=== PATIENT | female | born 1945 | race Caucasian/White ===

== ENCOUNTER 2016-11-10 10:10 | Emergency (ER) | payer MEDICARE ==
[2016-11-10 10:29] VITALS: BP 149/86
--- NOTE | 2016-11-28 14:53 | UC ---
Alfonso Singh SooYoung, scribed for FavioDaiana ToddDO on 11/10/16 at 1017 . Eye Complaint HPI - HPI Summary HPI Summary: A 71 y/o F [place] [facility]/o L-sided eye pain onset last night. Pain rated as 4 out of 10, described as feeling like she was stung. She got a bug bite to the lateral aspect of her L upper eyelid four days ago. Associated sx: L eye discharge since resolved, MCKEON since resolved, new facial numbness around L eye onset last night, mild photosensitivity. Denies visual changes, SOB, CP, dizziness, n/v, abd pain. She alternated heat and ice over the night to mild relief. She notes intermittent facial numbness for past year as baseline, but today's sx is different than baseline. Pert PMHx: RA, cataracts with implants. Goes to Dr. Peres's office. - History of Current Complaint Stated Complaint: EYE COMPLAINT WITH FACIAL NUMBNESS Hx Obtained From: Patient ?: No Onset/Duration: Gradual Onset, Lasting Hours - last night, Still Present Timing: Constant Severity Initially: Moderate Severity Currently: Moderate Pain Intensity: 4 Pain Scale Used: 0-10 Numeric Location of Injury: Eye Lid (upper) Character: Dull Aggravating Factor(s): Light Alleviating Factor(s): Nothing Associated Signs And Symptoms: Positive: Photophobia - mildly, Drainage ( Purulent). Negative: Vision Impairment Bilateral, Fever, Swelling - Risk Factors Penetrating Injury Risk Factor: Negative - Allergies/Home Medications Allergies/Adverse Reactions: Allergies Allergy/AdvReac Type Severity Reaction Status Date / Time Penicillins [PCN] Allergy Intermediate Rash Verified 11/13/16 08:50 Sulfa Antibiotics Allergy Intermediate Rash Verified 11/13/16 08:50 Hydroxychloroquine Allergy Difficulty Verified 11/13/16 08:50 [From Plaquenil] Breathing Propoxyphene [From Darvon] Allergy Difficulty Verified 11/13/16 08:50 Breathing Aspirin [ASA] AdvReac Mild Tinnitus Verified 11/13/16 08:50 Levofloxacin AdvReac Dizziness Verified 11/13/16 08:50 PMH/Surg Hx/FS Hx/Imm Hx Previously Healthy: No Endocrine History: Thyroid Disease Cardiovascular History: Hypertension Other History Of: Negative For: Anticoagulant Therapy - Surgical History Surgical History: Yes Surgery Procedure, Year, and Place: LEFT HIP REPLACEMENT, RT UPPER ARM SEROMA, HYSTERECTOMY, HEMORRHOIDECTOMY, RT TSA, LT SHOULDER SURGERY, LT WRIST REPAIR, MULTIPLE I & Ds OF RIGHT UPPER ARM, BILAT KNEES, POWER PORT, BILAT CATARACTS, ULNAR NERVE REPAIR, CERVICAL DECOMPRESSION - Family History Known Family History: Positive: Other - negative anaesthesia reaction Negative: Cardiac Disease, Hypertension, Diabetes - Social History Occupation: Disabled Lives: With Family - son Alcohol Use: Rare Alcohol Amount: about 1 glass of wine/week Substance Use Type: None Smoking Status (MU): Never Smoked Tobacco Have You Smoked in the Last Year: No - Immunization History Most Recent Influenza Vaccination: no vaccine available Most Recent Tetanus Shot: none Most Recent Pneumonia Vaccination: 2012 Review of Systems Constitutional: Negative Skin: Negative Eyes: Photophobia - mild, Other - pos: eye pain, discharge since resolved; neg: visual changes ENT: Negative Respiratory: Negative Cardiovascular: Negative Gastrointestinal: Negative Genitourinary: Negative Motor: Negative Neurovascular: Negative Musculoskeletal: Negative Neurological: Headache - resolved, Numbness - L-sided facial numbness Psychological: Negative All Other Systems Reviewed And Are Negative: Yes Physical Exam Triage Information Reviewed: Yes Appearance: Well-Appearing, No Pain Distress, Well-Nourished Vital Signs: Initial Vital Signs Temp 98.4 F 11/10/16 10:14 Pulse 67 11/10/16 10:14 Resp 18 11/10/16 10:14 BP 149/86 11/10/16 10:14 Pulse Ox 100 11/10/16 10:14 Vital Signs Reviewed: Yes Eyes: Positive: Conjunctiva Clear, Other: - Funduscopic exam was inadequate.. Negative: Discharge ENT: Positive: Hearing grossly normal, Pharynx normal, TMs normal, Muffled/ hoarse voice. Negative: Nasal congestion, Nasal drainage, Tonsillar swelling Neck exam: Normal Neck: Positive: Supple Respiratory: Positive: Lungs clear, Normal breath sounds, No respiratory distress, No accessory muscle use Cardiovascular: Positive: RRR, No Murmur Musculoskeletal Exam: Normal Neurological: Positive: Alert, Muscle Tone Normal, Other: - Baseline loss of strength in LUE due to not having a bone there. No reflexes. Loss of sensation around distribution of maxillary division of the trigeminal nerve. A&Ox3, CN II- XII INTACT, SENSORY MOTOR INTACT, NO CEREBELLAR SIGNS, FACIAL SYMMETRY, NEGATIVE RHOMBERG, NEGATIVE GAIT Psychological Exam: Normal Psychological: Positive: Age Appropriate Behavior Skin Exam: Normal, Other - warm, dry, nml color Eye Complaint Course/Dx - Course Course Of Treatment: Medications reviewed this visit. High blood pressure noted. - Differential Dx/Diagnosis Provider Diagnoses: facial numbness, eye pain. Blood pressure in poor control. Discharge - Discharge Plan Condition: Stable Disposition: AGAINST MEDICAL ADVICE Referrals: Jo Kerns MD [Primary Care Provider] - Additional Instructions: Your blood pressure was elevated at this visit. Please follow up with your primary care provider in 1 day to 4 weeks for further evaluation. Return to Urgent Care if you have any new or worsening symptoms. The documentation as recorded by the Alfonso pichardo SooYoung accurately reflects the service I personally performed and the decisions made by , Daiana Stahl DO.
== END 2016-11-10 10:55 | disposition left against medical advice (07) ==
LOC: UCEAST 10:10
DX: H57.12 Ocular pain, left eye (principal); R20.0 Anesthesia of skin; I10 Essential (primary) hypertension; E07.9 Disorder of thyroid, unspecified; Z96.642 Presence of left artificial hip joint; Z98.42 Cataract extraction status, left eye; Z98.41 Cataract extraction status, right eye; Z88.6 Allergy status to analgesic agent; Z88.0 Allergy status to penicillin; Z88.2 Allergy status to sulfonamides
CPT/HCPCS: 99213; G0463

== ENCOUNTER 2016-11-10 11:19 | Emergency (ER) | payer MEDICARE ==
[2016-11-10 12:40] VITALS: BP 143/77
--- NOTE | 2016-11-10 13:30 | ED ---
Throat Pain/Nasal Congestion - HPI Summary HPI Summary: 71 female presents to ED with complaints of left eye redness, swelling and tenderness that began a 2 days ago and has seemed to worsen. Woke up this morning with increased redness, swelling and discharge. Had a bug bite a week or two prior to lateral left eye however has healed. Patient has chronic listing of neck and MSK disorders. Denies headache, weakness, photophobia, vision changes and vision loss. Admits to some discharge and crusting of the eye , lower lid. Has been using warm compresses with little relief. Denies any other complaints at this time. No FB sensation, trauma, injury or pain on sclera. Denies excessive tearing in eyes/nose. Patient states she had cataract surgery years ago and told to be seen for any infection so it does not effect the cataract surgery, otherwise she probably would not have come in. - History of Current Complaint Chief Complaint: EDEyeProblem Time Seen by Provider: 11/10/16 11:37 Hx Obtained From: Patient Onset/Duration: Sudden Onset, Lasting Days - 2, Still Present, Worse Since Severity: Moderate Cough: None - Allergies/Home Medications Allergies/Adverse Reactions: Allergies Allergy/AdvReac Type Severity Reaction Status Date / Time Penicillins [PCN] Allergy Intermediate Rash Verified 10/09/16 16:57 Sulfa Antibiotics Allergy Intermediate Rash Verified 10/09/16 16:57 Hydroxychloroquine Allergy Difficulty Verified 10/09/16 16:57 [From Plaquenil] Breathing Propoxyphene [From Darvon] Allergy Difficulty Verified 10/09/16 16:57 Breathing Aspirin [ASA] AdvReac Mild Tinnitus Verified 10/09/16 16:57 Levofloxacin AdvReac Dizziness Verified 10/09/16 16:57 PMH/Surg Hx/FS Hx/Imm Hx Endocrine/Hematology History: Reports: Hx Thyroid Disease Denies: Hx Anticoagulant Therapy, Hx Blood Disorders, Hx Blood Transfusions, Hx Bone Marrow Disease, Hx Diabetes, Hx Systemic Lupus Erythematosus, Hx Sickle Cell Disease, Hx Anemia, Hx Unexplained Bleeding, Other Endocrine/Hematological Disorders Cardiovascular History: Reports: Hx Hypertension - ON MEDS, Hx Valvular Heart Disease - MITRAL VALVE STENOSIS Denies: Hx Aneurysm, Hx Angina, Hx Angioplasty, Hx Auto Implanted Cardiovert Defib, Hx Cardiac Arrest, Hx Cardiomegaly, Hx Congenital Heart Disease, Hx Congestive Heart Failure, Hx Coronary Artery Disease, Hx Deep Vein Thrombosis, Hx Hypercholesterolemia, Hx Hypotension, Hx Pacemaker/ICD, Hx Peripheral Vascular Disease, Hx Rheumatic Fever, Hx Syncope, Other Cardiovascular Problems/ Disorders Respiratory History: Reports: Other Respiratory Problems/Disorders - BILAT LOWER LOBE LUNG NODULES Denies: Hx Asthma, Hx Bronchopulmonary Dysplasia, Hx Chronic Bronchitis, Hx Chronic Obstructive Pulmonary Disease (COPD), Hx Cystic Fibrosis, Hx Lung Cancer , Hx Pleural Effusion, Hx Pneumonia, Hx Pulmonary Edema, Hx Pulmonary Embolism, Hx Seasonal Allergies, Hx Sleep Apnea GI History: Denies: Hx Cirrhosis, Hx Crohn's Disease, Hx Diverticulosis, Hx Gall Bladder Disease, Hx Gastroesophageal Reflux Disease, Hx Gastrointestinal Bleed, Hx Hiatal Hernia, Hx Irritable Bowel, Hx Jaundice, Hx Obstructive Bowel, Hx Ileostomy, Hx Pyloric Stenosis, Hx Ulcer, Other GI Disorders History: Denies: Hx Acute Renal Failure, Hx Benign Prostatic Hyperplasia, Hx Chronic Renal Failure, Hx Dialysis, Hx Kidney Infection, Hx Kidney Stones, Hx Renal Disease, Other Problems/Disorders Musculoskeletal History: Reports: Hx Arthritis, Hx Back Problems, Hx Osteoporosis, Hx Scoliosis - C1-C2 DISPLACEMENT Denies: Hx Bursitis, Hx Congenital Bone Abnormalities, Hx Fibromyalgia, Hx Gout, Hx Orthopedic Injury, Hx Tendonitis, Other Musculoskeletal History Sensory History: Reports: Hx Cataracts - PT HAS IMPLANTS, Hx Contacts or Glasses - READING Denies: Hx Eye Injury, Hx Eye Prosthesis, Hx Glaucoma, Hx Macular Degeneration, Hx Vision Problem, Hx Deafness, Hx Hearing Aid, Hx Hearing Problem , Other Sensory Impairments Opthamlomology History: Reports: Hx Cataracts - PT HAS IMPLANTS, Hx Contacts or Glasses - READING Denies: Hx Eye Injury, Hx Eye Prosthesis, Hx Glaucoma, Hx Macular Degeneration, Hx Vision Problem, Other Sensory Impairments EENT History: Reports: Other - cataracts Neurological History: Reports: Other Neuro Impairments/Disorders - BELLS PALSY Denies: Hx Dementia, Hx Developmental Delay, Hx Headaches, Hx Migraine, Hx Seizures, Hx Spinal Cord Injury, Hx Transient Ischemic Attacks (TIA) Psychiatric History: Denies: Hx Anxiety, Hx Attention Deficit Hyperactivity Disorder, Hx Autism, Hx Eating Disorder, Hx Oppositional Sebastian Disorder, Hx Depression, Hx Panic Disorder, Hx Post Traumatic Stress Disorder, Hx Inpatient Treatment, Hx Community Mental Health Tx, Hx Schizophrenia, Hx Bipolar Disorder, Hx Suicide Attempt, Other Psychiatric Issues/Disorders - Cancer History Hx Hematologic Symptoms: No Hx Chemotherapy: No Hx Radiation Therapy: No - Surgical History Surgery Procedure, Year, and Place: LEFT HIP REPLACEMENT, RT UPPER ARM SEROMA, HYSTERECTOMY, HEMORRHOIDECTOMY, RT TSA, LT SHOULDER SURGERY, LT WRIST REPAIR, MULTIPLE I & Ds OF RIGHT UPPER ARM, BILAT KNEES, POWER PORT, BILAT CATARACTS, ULNAR NERVE REPAIR, CERVICAL DECOMPRESSION Hx Anesthesia Reactions: No - Immunization History Immunizations Up to Date: Yes Infectious Disease History: No Infectious Disease History: Denies: Hx Clostridium Difficile, Hx Hepatitis, Hx Human Immunodeficiency Virus (HIV), Hx of Known/Suspected MRSA, Hx Shingles, Hx Tuberculosis, Traveled Outside the [place] in Last 30 Days - Family History Known Family History: Positive: None - Social History Alcohol Use: Weekly Alcohol Amount: 1 glass wine weekly Substance Use Type: Reports: None Smoking Status (MU): Never Smoked Tobacco Have You Smoked in the Last Year: No Review of Systems Constitutional: Negative Positive: Drainage, Erythema, Other - swelling ENT: Negative Cardiovascular: Negative Respiratory: Negative Gastrointestinal: Negative Musculoskeletal: Negative Neurological: Negative All Other Systems Reviewed And Are Negative: Yes Physical Exam Triage Information Reviewed: Yes Vital Signs On Initial Exam: Initial Vitals Temp Pulse Resp BP Pulse Ox 98.5 F 66 18 155/87 100 11/10/16 11:24 11/10/16 11:24 11/10/16 11:24 11/10/16 11:24 11/10/16 11:24 Vital Signs Reviewed: Yes Appearance: Positive: Well-Appearing, No Pain Distress, Well-Nourished Skin: Positive: Warm, Skin Color Reflects Adequate Perfusion, Dry, Erythema @ - of left eye. Negative: Cold, Cyanosis @, Pale Head/Face: Positive: Normal Head/Face Inspection - left eye redness, swelling of lower lid Eyes: Positive: Normal, EOMI, CRESENCIO, Conjunctiva Clear, Discharge - clear colored , with crusting and yellow tint, erythema and edema of lower left lid, appears to be hordeolum, Other: - fundoscopic exam: unable due to pupil size. no FB noted. scabbed over non infected bug bite noted on lateral left periorbital eye space ENT: Positive: Normal ENT inspection, Hearing grossly normal, Pharynx normal, TMs normal Dental: Negative: Cervical Lymphadenopathy Neck: Positive: Supple, Nontender, No Lymphadenopathy Respiratory/Lung Sounds: Positive: Clear to Auscultation, Breath Sounds Present. Negative: Rales, Rhonchi, Wheezes Cardiovascular: Positive: Normal, RRR, Pulses are Symmetrical in both Upper and Lower Extremities. Negative: Murmur, Rub Abdomen Description: Positive: Nontender, Soft Bowel Sounds: Positive: Present Musculoskeletal: Positive: Normal, Strength/ROM Intact - her normal, no signifcant new/acute weakness noted. Negative: Pain @ Neurological: Positive: Normal, Sensory/Motor Intact, Alert, Oriented to Person Place, Time, CN Intact II-III, Reflexes Intact, NV Bundle Intact Distally, Normal Gait, Finger to Nose - normal, Facial Symmetry - patient has chronic listing of neck, states no new drooping or weakness, Speech Normal. Negative: Receptive Aphasia, Expressive Aphasia, Cerebellar Dysfunction, Disoriented, Facial Droop, Slurred Speech Psychiatric: Positive: Normal, Affect/Mood Appropriate - [place] Coma Scale Best Eye Response: 4 - Spontaneous Best Motor Response: 6 - Obeys Commands Best Verbal Response: 5 - Oriented Diagnostics - Vital Signs Vital Signs Temp Pulse Resp BP Pulse Ox 11/10/16 12:38 99.3 F 72 16 143/77 100 11/10/16 11:24 98.5 F 66 18 155/87 100 - Laboratory Lab Statement: Any lab studies that have been ordered have been reviewed, and results considered in the medical decision making process. EENT Course/Dx - Course Course Of Treatment: due to PE findings will treat patient for hordeolum with topical antibiotic ointment. no concern for TIA or any other emergent etiology at this time. no concern for bells palsy. obvious sign of hordeolum of left eye with drainage. given script for eryhtromycin ointment. aware of worsening signs and symptoms. continue frequent warm compresses and ibuprofen for pain/ inflammation. follow up pcp and optho. - Differential Diagnoses Differential Diagnoses: Cellulitis, Conjunctivitis, Foreign Body, Other - hordeolum, chalazion, iritis - Diagnoses Provider Diagnoses: Hordeolum externum left lower eyelid Discharge - Discharge Plan Condition: Stable Disposition: HOME Patient Education Materials: Stye (ED), Warm Compress or Soak (GEN) Referrals: Jo Kerns MD [Primary Care Provider] - Jeremias Peres MD [Medical Doctor] - Additional Instructions: Continue applying warm compresses. Do not put fingers into eye. Use antibiotic ointment 3 times daily. Apply to lower eye lid, thin layer. Follow up with eye doctor to ensure improvement, sooner if symptoms worsen or new symptoms develop as discussed.
[2016-11-10] MEDS ORDERED: Erythromycin OPTH OINT* APPLIC OINT LEFT EYE SCH (14:00)
== END 2016-11-10 13:50 | disposition home or self-care (01) ==
LOC: ED 11:19
DX: H00.015 Hordeolum externum left lower eyelid (principal)
CPT/HCPCS: 99282; A9270-GY

== ENCOUNTER 2017-01-22 10:54 | Observation (INO) | payer MEDICARE ==
[2017-01-22] MEDS ORDERED: NS 0.9% 1000 ML* 1,000 ML IV ONE (11:21)
[2017-01-22 12:12] LABS: Hematocrit 42 % (35-47); Hemoglobin 13.8 g/dl (12.0-16.0); Mean Corpuscular HGB Conc 33 g/dl (31-36); Mean Corpuscular Hemoglobin 29 pg (27-31); Mean Corpuscular Volume 88 fL (80-97); Mean Platelet Volume 8 um3 (7.4-10.4); Red Blood Count 4.74 10^6/ul (4.0-5.4); Red Cell Distribution Width 15 % (10.5-15); White Blood Count 8.7 10^3/ul (3.5-10.8)
[2017-01-22 12:24] LABS: ALT 6 U/L (7-52); AST 16 U/L (13-39); Albumin 3.9 g/dL (3.2-5.2); Alkaline Phosphatase 63 U/L (34-104); Anion Gap 10 mmol/L (2-11); BUN/Creatinine Ratio 15.9 (8-20); Blood Urea Nitrogen 11 mg/dL (6-24); CO2 Carbon Dioxide 23 mmol/L (22-32); Calcium 8.7 mg/dL (8.6-10.3); Chloride 103 mmol/L (101-111); Creatine Kinase 56 U/L (10-223); EGFR African American 107.9 (>60); EGFR Non-African American 83.9 (>60); Globulin 3.5 g/dL (2-4); Glucose 97 mg/dL (70-100); Magnesium 2.1 mg/dL (1.9-2.7); Potassium 3.9 mmol/L (3.5-5.0); Sodium 136 mmol/L (133-145); Total Protein 7.4 g/dL (6.4-8.9)
[2017-01-22 12:27] LABS: Troponin I 0.02 ng/mL (<0.04)
--- NOTE | 2017-01-22 12:28 | RAD ---
HISTORY: Altered mental status COMPARISONS: August 21, 2014 TECHNIQUE: Multiple contiguous axial CT scans were obtained of the head without intravenous contrast. FINDINGS: HEMORRHAGE/INFARCT: There is no hemorrhage or acute infarct. MASSES/SHIFT: There is no mass or shift. EXTRA-AXIAL SPACES: There are no extra-axial fluid collections. SULCI AND VENTRICLES: The sulci and ventricles are normal in size and position for the patient's stated age. Incidentally noted is a cavum septum pellucidum et vergae. CEREBRUM: There are no focal parenchymal abnormalities. BRAINSTEM: There are no focal parenchymal abnormalities. CEREBELLUM: There are no focal parenchymal abnormalities. VESSELS: The vessels are grossly normal. PARANASAL SINUSES: The paranasal sinuses are clear. ORBITS: The orbits are unremarkable. BONES AND SOFT TISSUE: No bone or soft tissue abnormalities are noted. OTHER: None IMPRESSION: NO ACUTE INTRACRANIAL PATHOLOGY.
[2017-01-22 12:32] LABS: Alcohol < 10 mg/dL (<10)
--- NOTE | 2017-01-22 12:33 | RAD ---
HISTORY: Neck pain status post fall COMPARISONS: February 07, 2011 TECHNIQUE: Multiple contiguous axial CT scans were obtained of the cervical spine without intravenous contrast, with coronal and sagittal multiplanar reformations. FINDINGS: BRAIN: The visualized brain is unremarkable CENTRAL CANAL: Evaluation of the central canal is limited on CT technique; however, there is no obvious canalicular mass or epidural hemorrhage. ALIGNMENT: There is straightening of the cervical lordosis. VERTEBRAL BODIES: There is diffuse osteopenia. There is chronic appearing post right deformity to the odontoid process with fusion across the lateral axillary fixation. The patient is status post laminectomy at C5-C6. There is no acute displaced fracture. There is multilevel anterolateral marginal to 5 formation. JOINTS: There is osteoarthritis of the uncovertebral and facet joints. MUSCULATURE: Unremarkable INTERVERTEBRAL DISCS: There is diffuse loss of intervertebral disc height. AXIAL IMAGES: There is diffuse moderate neural foraminal narrowing. There is no significant osseous central canal stenosis. SOFT TISSUES: The visualized soft tissues of the neck are unremarkable. The prevertebral fat stripe is preserved. OTHER: None. IMPRESSION: 1. OSTEOPENIA. 2. REMOTE POST TRAUMATIC CHANGE TO THE CERVICAL SPINE. 3. POST SURGICAL CHANGE. 4. DEGENERATIVE DISC DISEASE AND OSTEOARTHRITIS. 5. NO ACUTE OSSEOUS INJURY TO THE CERVICAL SPINE
[2017-01-22 12:47] LABS: TSH (Thyroid Stimulating Horm) 0.69 mcIU/mL (0.34-5.60)
--- NOTE | 2017-01-22 12:56 | RAD ---
HISTORY: Altered mental status COMPARISONS: CT dated August 13, 2016 VIEWS: 1: frontal portable view of the chest at 12:42 PM FINDINGS: LINES AND TUBES: A right-sided chest port is noted with the tip overlying the superior vena cava CARDIOMEDIASTINAL SILHOUETTE: The cardiomediastinal silhouette is normal for portable technique. PLEURA: The costophrenic angles are sharp. No pleural abnormalities are noted. LUNG PARENCHYMA: The lungs are clear. ABDOMEN: The upper abdomen is clear. There is no subphrenic gas. BONES AND SOFT TISSUES: There is diffuse osteopenia. The patient is status post right shoulder no right elbow arthroplasty. There are advanced chronic posttraumatic changes to the proximal left humerus. IMPRESSION: NO ACTIVE CARDIOPULMONARY DISEASE.
[2017-01-22 12:57] LABS: Urine Bacteria Absent (Absent); Urine Bilirubin Negative (Negative); Urine Glucose Negative (Negative); Urine Nitrite Negative (Negative)
[2017-01-22 13:10] LABS: Benzodiazepine Urine Screen None Detected (None Detect)
[2017-01-22] MEDS ORDERED: traMADol TAB* 50 MG PO PRN (13:58)
--- NOTE | 2017-01-22 18:59 | ED ---
Douglas Singh Angela, scribed for Vern Valle MD on 01/22/17 at 1139 . Syncope/Near Syncope - HPI Summary HPI Summary: This pt is a 71 y/o female presenting to [facility] c/o headache s/p fall and possible syncope today. Per nurse, pt reported she was walking to the chip washer when she fell and woke up on the floor. She does not remember passing out. Pt currently c/o headache and neck pain. She rates her headache 10/10 in severity. She additionally states an episode of urinary incontinence. Pt is not oriented. Per nurse, pt lives by herself. PMHx includes rheumatoid arthritis. HPI is limited due to level 5 caveat - confusion - History Of Current Complaint Hx Obtained From: Patient, Other: - Nurse Hx From Patient Unobtainable Due To: Altered Mental Status Onset/Duration: Sudden Onset, Still Present Timing: Hours Context: Unwitnessed Activity At Onset: Other - walking Aggravating Factor(s): Nothing Alleviating Factor(s): Nothing Associated Signs And Symptoms: AMS, Head Trauma (Recent), Headache - rated 10/ 10 in severity, Other - neck pain, an episode of urinary incontinence. - Allergies/Home Medications Allergies/Adverse Reactions: Allergies Allergy/AdvReac Type Severity Reaction Status Date / Time Penicillins [PCN] Allergy Intermediate Rash Verified 01/08/17 10:41 Sulfa Antibiotics Allergy Intermediate Rash Verified 01/08/17 10:41 Hydroxychloroquine Allergy Difficulty Verified 01/08/17 10:41 [From Plaquenil] Breathing Propoxyphene [From Darvon] Allergy Difficulty Verified 01/08/17 10:41 Breathing Aspirin [ASA] AdvReac Mild Tinnitus Verified 01/08/17 10:41 Levofloxacin AdvReac Dizziness Verified 01/08/17 10:41 Home Medications: Home Medications Aspirin EC Low Dose* [Ecotrin EC Low Dose 81 MG*] 81 mg PO DAILY 01/22/17 [ History Confirmed 01/22/17] azaTHIOprine TAB(*) [Imuran TAB(*)] 50 mg PO MOWEFR 01/22/17 [History Confirmed 01/22/17] PMH/Surg Hx/FS Hx/Imm Hx Endocrine/Hematology History: Reports: Hx Thyroid Disease Denies: Hx Anticoagulant Therapy, Hx Blood Disorders, Hx Blood Transfusions, Hx Bone Marrow Disease, Hx Diabetes, Hx Systemic Lupus Erythematosus, Hx Sickle Cell Disease, Hx Anemia, Hx Unexplained Bleeding, Other Endocrine/Hematological Disorders Cardiovascular History: Reports: Hx Hypertension - ON MEDS, Hx Valvular Heart Disease - MITRAL VALVE STENOSIS Denies: Hx Aneurysm, Hx Angina, Hx Angioplasty, Hx Auto Implanted Cardiovert Defib, Hx Cardiac Arrest, Hx Cardiomegaly, Hx Congenital Heart Disease, Hx Congestive Heart Failure, Hx Coronary Artery Disease, Hx Deep Vein Thrombosis, Hx Hypercholesterolemia, Hx Hypotension, Hx Pacemaker/ICD, Hx Peripheral Vascular Disease, Hx Rheumatic Fever, Hx Syncope, Other Cardiovascular Problems/ Disorders Respiratory History: Reports: Other Respiratory Problems/Disorders - BILAT LOWER LOBE LUNG NODULES Denies: Hx Asthma, Hx Bronchopulmonary Dysplasia, Hx Chronic Bronchitis, Hx Chronic Obstructive Pulmonary Disease (COPD), Hx Cystic Fibrosis, Hx Lung Cancer , Hx Pleural Effusion, Hx Pneumonia, Hx Pulmonary Edema, Hx Pulmonary Embolism, Hx Seasonal Allergies, Hx Sleep Apnea GI History: Denies: Hx Cirrhosis, Hx Crohn's Disease, Hx Diverticulosis, Hx Gall Bladder Disease, Hx Gastroesophageal Reflux Disease, Hx Gastrointestinal Bleed, Hx Hiatal Hernia, Hx Irritable Bowel, Hx Jaundice, Hx Obstructive Bowel, Hx Ileostomy, Hx Pyloric Stenosis, Hx Ulcer, Other GI Disorders History: Denies: Hx Acute Renal Failure, Hx Benign Prostatic Hyperplasia, Hx Chronic Renal Failure, Hx Dialysis, Hx Kidney Infection, Hx Kidney Stones, Hx Renal Disease, Other Problems/Disorders Musculoskeletal History: Reports: Hx Arthritis, Hx Back Problems, Hx Osteoporosis, Hx Scoliosis - C1-C2 DISPLACEMENT Denies: Hx Bursitis, Hx Congenital Bone Abnormalities, Hx Fibromyalgia, Hx Gout, Hx Orthopedic Injury, Hx Tendonitis, Other Musculoskeletal History Sensory History: Reports: Hx Cataracts - PT HAS IMPLANTS, Hx Contacts or Glasses - READING Denies: Hx Eye Injury, Hx Eye Prosthesis, Hx Glaucoma, Hx Macular Degeneration, Hx Vision Problem, Hx Deafness, Hx Hearing Aid, Hx Hearing Problem , Other Sensory Impairments Opthamlomology History: Reports: Hx Cataracts - PT HAS IMPLANTS, Hx Contacts or Glasses - READING Denies: Hx Eye Injury, Hx Eye Prosthesis, Hx Glaucoma, Hx Macular Degeneration, Hx Vision Problem, Other Sensory Impairments Neurological History: Reports: Other Neuro Impairments/Disorders - BELLS PALSY Denies: Hx Dementia, Hx Developmental Delay, Hx Headaches, Hx Migraine, Hx Seizures, Hx Spinal Cord Injury, Hx Transient Ischemic Attacks (TIA) Psychiatric History: Denies: Hx Anxiety, Hx Attention Deficit Hyperactivity Disorder, Hx Autism, Hx Eating Disorder, Hx Oppositional [place] Disorder, Hx Depression, Hx Panic Disorder, Hx Post Traumatic Stress Disorder, Hx Inpatient Treatment, Hx Community Mental Health Tx, Hx Schizophrenia, Hx Bipolar Disorder, Hx Suicide Attempt, Other Psychiatric Issues/Disorders - Cancer History Hx Hematologic Symptoms: No Hx Chemotherapy: No Hx Radiation Therapy: No - Surgical History Surgery Procedure, Year, and Place: LEFT HIP REPLACEMENT, RT UPPER ARM SEROMA, HYSTERECTOMY, HEMORRHOIDECTOMY, RT TSA, LT SHOULDER SURGERY, LT WRIST REPAIR, MULTIPLE I & Ds OF RIGHT UPPER ARM, BILAT KNEES, POWER PORT, BILAT CATARACTS, ULNAR NERVE REPAIR, CERVICAL DECOMPRESSION Hx Anesthesia Reactions: No Infectious Disease History: Yes Infectious Disease History: Denies: Hx Clostridium Difficile, Hx Hepatitis, Hx Human Immunodeficiency Virus (HIV), Hx of Known/Suspected MRSA, Hx Shingles, Hx Tuberculosis, Traveled Outside the [place] in Last 30 Days - Family History Known Family History: Positive: Cardiac Disease - Father, Hypertension - paternal grandmother, Other - Mother: rheumatoid arthritis, [place] - Social History Alcohol Use: Occasionally Alcohol Amount: 1 glass wine weekly Substance Use Type: Reports: None Smoking Status (MU): Never Smoked Tobacco Have You Smoked in the Last Year: No Review of Systems Negative: Fever, Chills Positive: incontinence - 1 episode of urinary incontinence Musculoskeletal: Other - neck pain Positive: Headache, Syncope All Other Systems Reviewed And Are Negative: No - Comments Additional Review of Systems Comments: ROS is limited due to level 5 caveat - confusion. Physical Exam - Summary Physical Exam Summary: VITAL SIGNS: Reviewed. GENERAL: Patient is a well-developed and nourished female. Patient is not in any acute respiratory distress. HEAD AND FACE: No ecchymosis or skull depressions. No sinus tenderness. Pt has a bump on the right forehead. EYES: PERRLA, EOMI x 2, No injected conjunctiva, no nystagmus. EARS: Hearing grossly intact. Ear canals and tympanic membranes are within normal limits. MOUTH: Oropharynx within normal limits. NECK: Supple, trachea is midline, no adenopathy, no JVD, no carotid bruit. Pt c/ o c-spine tenderness. CHEST: Symmetric, no tenderness at palpation. Pt has a port on the right side of the chest. LUNGS: Clear to auscultation bilaterally. No wheezing or crackles. CVS: Regular rate and rhythm, S1 and S2 present, no murmurs or gallops appreciated. ABDOMEN: Soft, non-tender. No signs of distention. No rebound no guarding, and no masses palpated. Bowel sounds are normal. EXTREMITIES: FROM in all major joints, no edema, no cyanosis or clubbing. NEURO: Alert but not oriented. Pt is confused. No acute neurological deficits. Speech is normal and follows commands. SKIN: Dry and warm Triage Information Reviewed: Yes Vital Signs On Initial Exam: Initial Vitals Temp Pulse Resp BP Pulse Ox 97.8 F 72 18 0/0 100 01/22/17 11:07 01/22/17 11:07 01/22/17 11:07 01/22/17 11:07 01/22/17 11:07 Vital Signs Reviewed: Yes Completion Of Physical Exam Limited Due To: Level 5 - confusion - Cirilo Coma Scale Best Eye Response: 4 - Spontaneous Best Motor Response: 6 - Obeys Commands Best Verbal Response: 4 - Confused Diagnostics - Vital Signs Vital Signs Temp Pulse Resp BP Pulse Ox 01/22/17 11:07 97.8 F 72 18 0/0 100 - Laboratory Lab Results: Lab Results 01/22/17 01/22/17 01/22/17 Range/Units 11:34 11:34 11:34 WBC 8.7 (3.5-10.8) 10^3/ul RBC 4.74 (4.0-5.4) 10^6/ul Hgb 13.8 (12.0-16.0) g/dl Hct 42 (35-47) % MCV 88 (80-97) fL MCH 29 (27-31) pg MCHC 33 (31-36) g/dl RDW 15 (10.5-15) % Plt Count 312 (150-450) 10^3/ul MPV 8 (7.4-10.4) um3 Neut % (Auto) 68.6 (38-83) % Lymph % (Auto) 22.5 L (25-47) % Meade % (Auto) 7.6 (1-9) % Eos % (Auto) 0.8 (0-6) % Baso % (Auto) 0.5 (0-2) % Absolute Neuts (auto) 6.0 (1.5-7.7) 10^3/ul Absolute Lymphs (auto) 2.0 (1.0-4.8) 10^3/ul Absolute Monos (auto) 0.7 (0-0.8) 10^3/ul Absolute Eos (auto) 0.1 (0-0.6) 10^3/ul Absolute Basos (auto) 0 (0-0.2) 10^3/ul Absolute Nucleated RBC 0 10^3/ul Nucleated RBC % 0 Sodium 136 (133-145) mmol/L Potassium 3.9 (3.5-5.0) mmol/L Chloride 103 (101-111) mmol/L Carbon Dioxide 23 (22-32) mmol/L Anion Gap 10 (2-11) mmol/L BUN 11 (6-24) mg/dL Creatinine 0.69 (0.51-0.95) mg/dL Est GFR ( Amer) 107.9 (>60) Est GFR (Non-Af Amer) 83.9 (>60) BUN/Creatinine Ratio 15.9 (8-20) Glucose 97 (70-100) mg/dL Lactic Acid (0.5-2.0) mmol/L Calcium 8.7 (8.6-10.3) mg/dL Magnesium 2.1 (1.9-2.7) mg/dL Total Bilirubin 0.50 (0.2-1.0) mg/dL AST 16 (13-39) U/L ALT 6 L (7-52) U/L Alkaline Phosphatase 63 (34-104) U/L Ammonia 34 (16-53) mol/L Total Creatine Kinase 56 (10-223) U/L Troponin I 0.02 (<0.04) ng/mL Total Protein 7.4 (6.4-8.9) g/dL Albumin 3.9 (3.2-5.2) g/dL Globulin 3.5 (2-4) g/dL Albumin/Globulin Ratio 1.1 (1-3) TSH 0.69 (0.34-5.60) mcIU/mL Urine Color Urine Appearance Urine pH (5-9) Ur Specific [place] (1.010-1.030) Urine Protein (Negative) Urine Ketones (Negative) Urine Blood (Negative) Urine Nitrate (Negative) Urine Bilirubin (Negative) Urine Urobilinogen (Negative) Ur Leukocyte Esterase (Negative) Urine WBC (Auto) (Absent) Urine RBC (Auto) (Absent) Ur Squamous Epith Cells (Absent) Urine Bacteria (Absent) Urine Glucose (Negative) Urine Opiates Screen (None Detect) Ur Barbiturates Screen (None Detect) Ur Phencyclidine Scrn (None Detect) Ur Amphetamines Screen (None Detect) U Benzodiazepines Scrn (None Detect) Urine Cocaine Screen (None Detect) U Cannabinoids Screen (None Detect) Serum Alcohol < 10 (<10) mg/dL 01/22/17 01/22/17 01/22/17 Range/Units 11:34 12:10 12:10 WBC (3.5-10.8) 10^3/ul RBC (4.0-5.4) 10^6/ul Hgb (12.0-16.0) g/dl Hct (35-47) % MCV (80-97) fL MCH (27-31) pg MCHC (31-36) g/dl RDW (10.5-15) % Plt Count (150-450) 10^3/ul MPV (7.4-10.4) um3 Neut % (Auto) (38-83) % Lymph % (Auto) (25-47) % [place] % (Auto) (1-9) % Eos % (Auto) (0-6) % Baso % (Auto) (0-2) % Absolute Neuts (auto) (1.5-7.7) 10^3/ul Absolute Lymphs (auto) (1.0-4.8) 10^3/ul Absolute Monos (auto) (0-0.8) 10^3/ul Absolute Eos (auto) (0-0.6) 10^3/ul Absolute Basos (auto) (0-0.2) 10^3/ul Absolute Nucleated RBC 10^3/ul Nucleated RBC % Sodium (133-145) mmol/L Potassium (3.5-5.0) mmol/L Chloride (101-111) mmol/L Carbon Dioxide (22-32) mmol/L Anion Gap (2-11) mmol/L BUN (6-24) mg/dL Creatinine (0.51-0.95) mg/dL Est GFR ( Amer) (>60) Est GFR (Non-Af Amer) (>60) BUN/Creatinine Ratio (8-20) Glucose (70-100) mg/dL Lactic Acid 2.5 H* (0.5-2.0) mmol/L Calcium (8.6-10.3) mg/dL Magnesium (1.9-2.7) mg/dL Total Bilirubin (0.2-1.0) mg/dL AST (13-39) U/L ALT (7-52) U/L Alkaline Phosphatase (34-104) U/L Ammonia (16-53) mol/L Total Creatine Kinase (10-223) U/L Troponin I (<0.04) ng/mL Total Protein (6.4-8.9) g/dL Albumin (3.2-5.2) g/dL Globulin (2-4) g/dL Albumin/Globulin Ratio (1-3) TSH (0.34-5.60) mcIU/mL Urine Color Colorless Urine Appearance Clear Urine pH 8.0 (5-9) Ur Specific [place] 1.002 L (1.010-1.030) Urine Protein Negative (Negative) Urine Ketones Negative (Negative) Urine Blood 1+ H (Negative) Urine Nitrate Negative (Negative) Urine Bilirubin Negative (Negative) Urine Urobilinogen Negative (Negative) Ur Leukocyte Esterase Negative (Negative) Urine WBC (Auto) Absent (Absent) Urine RBC (Auto) Trace(0-2/hpf) (Absent) Ur Squamous Epith Cells Present H (Absent) Urine Bacteria Absent (Absent) Urine Glucose Negative (Negative) Urine Opiates Screen None detected (None Detect) Ur Barbiturates Screen None detected (None Detect) Ur Phencyclidine Scrn None detected (None Detect) Ur Amphetamines Screen None detected (None Detect) U Benzodiazepines Scrn None detected (None Detect) Urine Cocaine Screen None detected (None Detect) U Cannabinoids Screen None detected (None Detect) Serum Alcohol (<10) mg/dL Result Diagrams: 01/22/17 11:34 01/22/17 11:34 Lab Statement: Any lab studies that have been ordered have been reviewed, and results considered in the medical decision making process. - Radiology Chest XR Xray Interpretation: No Acute Changes - IMPRESSION: No active cardiopulmonary disease. ED physician has reviewed this radiology report and agrees. Radiology Interpretation Completed By: Radiologist - CT Brain CT CT Interpretation: No Acute Changes - IMPRESSION: No acute intracranial pathology. ED physician has reviewed this radiology report and agrees. CT Interpretation Completed By: Radiologist Cervical spine CT CT Interpretation: Positive (See Comments) - IMPRESSION: 1. Osteopenia. 2. Remote post traumatic change to the cervical spine. 3. Post surgical change. 4. Degenerative disc disease and osteoarthritis. 5. No acute osseous injury to the cervical spine. ED physician has reviewed this radiology report and agrees. CT Interpretation Completed By: Radiologist Course/Dx Assessment/Plan: This pt is a 71 y/o female presenting to [facility] c/o headache s/ p fall and possible syncope today. Per nurse, pt reported she was walking to the chip washer when she fell and woke up on the floor. She does not remember passing out. Pt currently c/o headache and neck pain. She rates her headache 10/10 in severity. She additionally states an episode of urinary incontinence. Pt is not oriented. Per nurse, pt lives by herself. PMHx includes rheumatoid arthritis. HPI is limited due to level 5 caveat - confusion. Test results without any significant abnormalities. Head CT shows no acute intracranial pathology. Chest XR shows no active cardiopulmonary disease. CT of cervical spine reveals 1. Osteopenia. 2. Remote post traumatic change to the cervical spine. 3. Post surgical change. 4. Degenerative disc disease and osteoarthritis. 5. No acute osseous injury to the cervical spine. The pt is alert and more oriented. However, I discussed the case with Dr. Wilks, from the hospitalist services, who accepted the pt for admission. Pt is alert and more oriented, compared to arrival to the ED, at admission. - Diagnoses Provider Diagnoses: Head contusion, Acute confusion - Physician Notifications Discussed Care of Patient With: Maday Wilks Time Discussed With Above Provider: 13:55 Instructed by Provider To: Other - I discussed pt care with Dr. Wilks, who will admit the pt. Discharge - Discharge Plan Condition: Stable Disposition: ADMITTED TO [facility] documentation as recorded by the Douglas pichardo Angela accurately reflects the service I personally performed and the decisions made by me, Vern Valle MD.
[2017-01-22] MEDS ORDERED: Oxybutynin TAB* 5 MG PO SCH (21:00)
--- NOTE | 2017-01-22 22:11 | HP ---
CC: Dr. Kerns; Dr. Villanueva; Dr. Borrero; Dr. Park; Dr. Iverson; Dr. Shelby; Dr. Lofton * HISTORY AND PHYSICAL: DATE OF ADMISSION: 01/22/17 PRIMARY CARE PROVIDER: Dr. Kerns. CHIEF COMPLAINT: Syncope. HISTORY OF PRESENT ILLNESS: Nadiya Cobb is a 71-year-old female with history of rheumatoid arthritis, mitral stenosis as well as paroxysmal atrial fibrillation, who stated that she was going downstairs to do laundry and when she was next to her washing machine, she must have fallen. She does not remember falling, but she remembers that the next thing she remembers was waking up next to the washing machine. When she came into the emergency department, she was mildly confused. She had a contusion on the right side of her forehead. It was suspected that she has had mild concussion. Her workup is otherwise unremarkable. She is going to be admitted for overnight observation on bus monitor bed and neuro checks for evaluation of syncope. PAST MEDICAL HISTORY: 1. History of severe rheumatoid arthritis, on Orencia infusions monthly, under the care of Dr. Iverson. 2. History of dysphagia. 3. History of bronchiectasis, under the care of Dr. Shelby. 4. History of paroxysmal atrial fibrillation and mitral stenosis, under the care of Dr. Lofton. 5. History of rheumatoid arthritis and rheumatoid lung disease. 6. History of osteoporosis. 7. 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 MEDICATIONS: At home, include: 1. Denosumab 60 mg subcutaneously every 6 months. 2. Imuran 50 mg on Mondays, Wednesdays, and Fridays. 3. Aspirin 81 mg daily. 4. Orencia 500 mg infusion monthly. 5. Calcitriol 0.25 mcg daily. 6. Oxybutynin ER 10 mg daily. 7. Metoprolol tartrate 25 mg daily. 8. Voltaren gel 1% on a p.r.n. basis. 9. Ultram 50 mg every 4 hours p.r.n. 10. Prednisone 3 mg daily. 11. Protonix 40 mg daily. ALLERGIES: DARVOCET, PLAQUENIL, ASPIRIN, PENICILLIN, and LEVOFLOXACIN. FAMILY HISTORY: Positive for rheumatoid arthritis. The patient's mom of rheumatoid arthritis in her 60s and her father of heart disease at the age of 67. SOCIAL HISTORY: The patient is a retired nurse. Currently, lives with her son. She is independent in all activities of daily living. She denies any tobacco or drug use. She drinks alcohol rarely. REVIEW OF SYSTEMS: Please see history of present illness. The patient has multiple chronic joint pains and subluxations of bilateral fingers of bilateral hands and chronic disability due to that. The patient also has problems with her neck and her neck is rotated towards the right side chronically due to rheumatoid arthritis. Despite her disability, she is able to ambulate without any support. She stated that she has some problems with dysphagia, but she usually drinks a lot of liquids and chews well and does not require modified diet. In the past several weeks or months, she has not had any recent upper respiratory infections. She denies any abdominal pain or dysuria. All of the remaining 12 systems were reviewed with the patient and were otherwise negative. PHYSICAL EXAMINATION GENERAL: The patient is a very pleasant 71-year-old female, who is in no acute distress. Alert, awake, and oriented x3. VITAL SIGNS: Blood pressure of 116/68, heart rate of 70 and regular, respiratory rate 13, oxygen saturation % on room air, temperature 98.4. HEENT: Head: With contusion noted on the right forehead. Eyes: Extraocular movements are intact. Pupils are equal, reactive to light and accommodation. Oropharynx clear. Mucosa moist. NECK: Supple. No JVD. No bruits bilaterally. RESPIRATORY: Clear to auscultation bilaterally. CARDIOVASCULAR: Regular rate and rhythm, no murmur. ABDOMEN: Soft and nontender. Bowel sounds present in all 4 quadrants. EXTREMITIES: There is no edema. Pulses are +2 bilaterally. No clubbing, cyanosis. Please note that the patient has severe rheumatoid arthritis changes in bilateral hands and feet. NEURO: Speech is clear. Cranial nerves II through XII grossly intact. Motor strength is 5/5 bilaterally. The patient had some pain with flexing her right knee due to the trauma when she fell and the abrasion noted, but no neuro deficit was noted. SKIN: On evaluation of the skin, the patient has an abrasion on her right forehead approximately 4 cm in diameter and abrasion on her knee of approximately 3 cm in diameter. DIAGNOSTIC STUDIES/LAB DATA: Showed white blood cell count 8.7, hemoglobin 13.8, hematocrit 42, and platelets 312. Sodium was 136, potassium 3.9, chloride 103, carbon dioxide 23, BUN 11, creatinine 0.69. Liver function tests were unremarkable. Lactic acid of 2.5. Troponin of 0.02. TSH of 0.69. Urinalysis was grossly unremarkable with trace of blood after Suggs insertion. The patient's cervical spine CT, impression: "Osteopenia. Remote posttraumatic change to the cervical spine. Post surgical change, degenerative disk disease and osteoarthritis. No acute osseous injury to the cervical spine. " Brain CT, impression: "No acute intracranial pathology." Portable chest x-ray, impression: "No active cardiopulmonary disease." EKG shows normal sinus rhythm with a heart rate of 77 beats per minute with intraventricular conduction delay and nonspecific ST changes in lateral leads. ASSESSMENT AND PLAN: 1. Syncopal episode. At this point, the patient appears to have had no prodrome of symptoms and she was confused afterwards. I suspect she was confused after the syncope due to concussion. She is going to be placed on overnight observation on telemetry monitored bed. Due to her history of mitral stenosis, the patient is going to be followed with a transthoracic echocardiogram. We will also follow up with repeat troponin and obtain neuro checks. 2. In regards to the patient's rheumatoid arthritis, the patient is going to be continued on prednisone and Imuran as previously taken. 3. For DVT prophylaxis, the patient is going to be placed on heparin subcutaneously. 4. In regards to the patient's code status, the patient's MOLST form was signed in 2011 and she requests to be do not resuscitate. As her surrogate, she mentioned her daughter, Daiana Farooq, and her son-in-law, Simba Farooq. TIME SPENT: Approximately 55 minutes was spent on admission of this patient, more than half that time was spent [id number] with the patient doing the interview and physical exam. [id number]/[facility] #: [id number] [facility]
[2017-01-23] MEDS ORDERED: Omeprazole CAP* 20 MG PO SCH (06:00)
[2017-01-23] MEDS ORDERED: Aspirin EC Low Dose* 81 MG TAB.EC PO SCH (09:00)
[2017-01-23] MEDS ORDERED: Oxybutynin XL TAB* 5 MG PO SCH (09:00)
[2017-01-23] MEDS ORDERED: Calcitriol CAP* 0.25 MCG PO SCH (09:00)
[2017-01-23] MEDS ORDERED: predniSONE TAB* 1 MG PO SCH (09:00)
[2017-01-23] MEDS ORDERED: Metoprolol Tartrate TAB* 25 MG PO SCH (09:00)
--- NOTE | 2017-01-23 09:20 | DCNOTE ---
Subjective Date of Service: 01/23/17 Interval History: Clear hx of syncope at home, was alone at the time. She has had falls in the past but never syncope. She can't get up when she falls so she always has her cell phone with her. She does not recall the actual fall. She had her meds and breakfast before the episode. Objective Active Medications: Aspirin (Aspirin Ec Low Dose*) 81 mg PO DAILY [facility] Last Admin: 01/23/17 08:46 Dose: 81 mg Azathioprine (Imuran Tab(*)) 50 mg PO MOWEFR [facility] Calcitriol (Rocaltrol Cap*) 0.25 mcg PO QAM [facility] Last Admin: 01/23/17 08:46 Dose: 0.25 mcg Heparin Sodium (Porcine) (Heparin Flush Port (Ivad)) 5 ml FLUSH DAILY [facility] PRN Reason: Protocol Last Admin: 01/23/17 08:49 Dose: 5 ml Metoprolol Tartrate (Lopressor Tab*) 25 mg PO DAILY [facility] Last Admin: 01/23/17 08:46 Dose: 25 mg Omeprazole (Prilosec Cap*) 20 mg PO DAILY@0600 [facility] Last Admin: 01/23/17 06:01 Dose: 20 mg Oxybutynin Chloride ([facility]l [facility]*) [facility] [place] Admin: 01/23/17 08:48 Dose: 10 mg Prednisone (Deltasone Tab*) 3 mg PO QAM [facility] Last Admin: 01/23/17 08:46 Dose: 3 mg Tramadol HCl (Ultram*) 50 mg PO Q4H PRN PRN Reason: PAIN Last Admin: 01/22/17 15:52 Dose: 50 mg Vital Signs 01/22/17 01/22/17 01/22/17 14:00 14:20 14:40 Temperature 98.2 F 98.4 F Pulse Rate 76 72 70 Respiratory 16 15 13 Rate Blood Pressure (mmHg) O2 Sat by Pulse 98 99 99 Oximetry 01/22/17 01/22/17 01/22/17 14:57 15:52 18:19 Temperature 98.7 F Pulse Rate 74 Respiratory 16 16 16 Rate Blood Pressure 178/100 (mmHg) O2 Sat by Pulse 100 Oximetry 01/22/17 01/22/17 01/22/17 20:00 20:03 23:47 Temperature 98.0 F 97.9 F Pulse Rate 75 72 Respiratory 20 20 20 Rate Blood Pressure 144/74 (mmHg) O2 Sat by Pulse 99 100 Oximetry 01/23/17 01/23/17 01/23/17 03:55 03:58 07:15 Temperature 98.3 F Pulse Rate 61 Respiratory 20 Rate Blood Pressure 122/70 106/70 (mmHg) O2 Sat by Pulse 100 Oximetry Oxygen Devices in Use Now: None Appearance: Alert, standing by her bed. In good spirits. Looks comfortable. Eyes: No Scleral Icterus Neck: NL Appearance and Movements; NL JVP, No Thyroid Enlargement, Masses Respiratory: Symmetrical Chest Expansion and Respiratory Effort, Clear to Auscultation, Clear to Percussion Cardiovascular: RRR, No Edema, - - 1/6 systolic murmur across precordium Extremities: No Edema, No Clubbing, Cyanosis, - - congenital UE deformities, advanced hand/wrist changes of RA. Skin: No Rash or Ulcers, No Nodules or Sclerosis, - Neurological: Alert and Oriented x 3, NL Sensation Result Diagrams: 01/22/17 11:34 01/22/17 11:34 Additional Lab and Data: Lab Results 01/22/17 01/22/17 01/22/17 Range/Units 11:34 11:34 11:34 WBC 8.7 (3.5-10.8) 10^3/ul RBC 4.74 (4.0-5.4) 10^6/ul Hgb 13.8 (12.0-16.0) g/dl Hct 42 (35-47) % MCV 88 (80-97) fL MCH 29 (27-31) pg MCHC 33 (31-36) g/dl RDW 15 (10.5-15) % Plt Count 312 (150-450) 10^3/ul MPV 8 (7.4-10.4) um3 Neut % (Auto) 68.6 (38-83) % Lymph % (Auto) 22.5 L (25-47) % Cedar % (Auto) 7.6 (1-9) % Eos % (Auto) 0.8 (0-6) % Baso % (Auto) 0.5 (0-2) % Absolute Neuts (auto) 6.0 (1.5-7.7) 10^3/ul Absolute Lymphs (auto) 2.0 (1.0-4.8) 10^3/ul Absolute Monos (auto) 0.7 (0-0.8) 10^3/ul Absolute Eos (auto) 0.1 (0-0.6) 10^3/ul Absolute Basos (auto) 0 (0-0.2) 10^3/ul Absolute Nucleated RBC 0 10^3/ul Nucleated RBC % 0 Sodium 136 (133-145) mmol/L Potassium 3.9 (3.5-5.0) mmol/L Chloride 103 (101-111) mmol/L Carbon Dioxide 23 (22-32) mmol/L Anion Gap 10 (2-11) mmol/L BUN 11 (6-24) mg/dL Creatinine 0.69 (0.51-0.95) mg/dL Est GFR ( Amer) 107.9 (>60) Est GFR (Non-Af Amer) 83.9 (>60) BUN/Creatinine Ratio 15.9 (8-20) Glucose 97 (70-100) mg/dL Lactic Acid (0.5-2.0) mmol/L Calcium 8.7 (8.6-10.3) mg/dL Magnesium 2.1 (1.9-2.7) mg/dL Total Bilirubin 0.50 (0.2-1.0) mg/dL AST 16 (13-39) U/L ALT 6 L (7-52) U/L Alkaline Phosphatase 63 (34-104) U/L Ammonia 34 (16-53) mol/L Total Creatine Kinase 56 (10-223) U/L Troponin I 0.02 (<0.04) ng/mL Total Protein 7.4 (6.4-8.9) g/dL Albumin 3.9 (3.2-5.2) g/dL Globulin 3.5 (2-4) g/dL Albumin/Globulin Ratio 1.1 (1-3) TSH 0.69 (0.34-5.60) mcIU/mL Urine Color Urine Appearance Urine pH (5-9) Ur Specific [place] (1.010-1.030) Urine Protein (Negative) Urine Ketones (Negative) Urine Blood (Negative) Urine Nitrate (Negative) Urine Bilirubin (Negative) Urine Urobilinogen (Negative) Ur Leukocyte Esterase (Negative) Urine WBC (Auto) (Absent) Urine RBC (Auto) (Absent) Ur Squamous Epith Cells (Absent) Urine Bacteria (Absent) Urine Glucose (Negative) Urine Opiates Screen (None Detect) Ur Barbiturates Screen (None Detect) Ur Phencyclidine Scrn (None Detect) Ur Amphetamines Screen (None Detect) U Benzodiazepines Scrn (None Detect) Urine Cocaine Screen (None Detect) U Cannabinoids Screen (None Detect) Serum Alcohol < 10 (<10) mg/dL 01/22/17 01/22/17 01/22/17 Range/Units 11:34 12:10 12:10 WBC (3.5-10.8) 10^3/ul RBC (4.0-5.4) 10^6/ul Hgb (12.0-16.0) g/dl Hct (35-47) % MCV (80-97) fL MCH (27-31) pg MCHC (31-36) g/dl RDW (10.5-15) % Plt Count (150-450) 10^3/ul MPV (7.4-10.4) um3 Neut % (Auto) (38-83) % Lymph % (Auto) (25-47) % Cedar % (Auto) (1-9) % Eos % (Auto) (0-6) % Baso % (Auto) (0-2) % Absolute Neuts (auto) (1.5-7.7) 10^3/ul Absolute Lymphs (auto) (1.0-4.8) 10^3/ul Absolute Monos (auto) (0-0.8) 10^3/ul Absolute Eos (auto) (0-0.6) 10^3/ul Absolute Basos (auto) (0-0.2) 10^3/ul Absolute Nucleated RBC 10^3/ul Nucleated RBC % Sodium (133-145) mmol/L Potassium (3.5-5.0) mmol/L Chloride (101-111) mmol/L Carbon Dioxide (22-32) mmol/L Anion Gap (2-11) mmol/L BUN (6-24) mg/dL Creatinine (0.51-0.95) mg/dL Est GFR ( Amer) (>60) Est GFR (Non-Af Amer) (>60) BUN/Creatinine Ratio (8-20) Glucose (70-100) mg/dL Lactic Acid 2.5 H* (0.5-2.0) mmol/L Calcium (8.6-10.3) mg/dL Magnesium (1.9-2.7) mg/dL Total Bilirubin (0.2-1.0) mg/dL AST (13-39) U/L ALT (7-52) U/L Alkaline Phosphatase (34-104) U/L Ammonia (16-53) mol/L Total Creatine Kinase (10-223) U/L Troponin I (<0.04) ng/mL Total Protein (6.4-8.9) g/dL Albumin (3.2-5.2) g/dL Globulin (2-4) g/dL Albumin/Globulin Ratio (1-3) TSH (0.34-5.60) mcIU/mL Urine Color Colorless Urine Appearance Clear Urine pH 8.0 (5-9) Ur Specific [place] 1.002 L (1.010-1.030) Urine Protein Negative (Negative) Urine Ketones Negative (Negative) Urine Blood 1+ H (Negative) Urine Nitrate Negative (Negative) Urine Bilirubin Negative (Negative) Urine Urobilinogen Negative (Negative) Ur Leukocyte Esterase Negative (Negative) Urine WBC (Auto) Absent (Absent) Urine RBC (Auto) Trace(0-2/hpf) (Absent) Ur Squamous Epith Cells Present H (Absent) Urine Bacteria Absent (Absent) Urine Glucose Negative (Negative) Urine Opiates Screen None detected (None Detect) Ur Barbiturates Screen None detected (None Detect) Ur Phencyclidine Scrn None detected (None Detect) Ur Amphetamines Screen None detected (None Detect) U Benzodiazepines Scrn None detected (None Detect) Urine Cocaine Screen None detected (None Detect) U Cannabinoids Screen None detected (None Detect) Serum Alcohol (<10) mg/dL Assess/Plan/Problems-Billing Assessment: - Patient Problems (1) Syncope Current Visit: Yes Status: Acute Code(s): R55 - SYNCOPE AND COLLAPSE SNOMED Code(s): 018108687 Comment: NSR with activity related tachy. TTE pending, had one a few months ago in Dr. Lofton's office, unlikely to have changed significantly. I will leave further wup to Dr. Lofton as an outpt. By pt's description, may have . (2) Rheumatoid arthritis Current Visit: No Status: Active Code(s): M06.9 - RHEUMATOID ARTHRITIS, UNSPECIFIED SNOMED Code(s): 07619712 Comment: [place]up [place]. Continue her DMD's and prednisone.
[2017-01-23 10:12] VITALS: BP 100/58
--- NOTE | 2017-01-23 11:58 | ECHO ---
Patient: [facility] Rec#: [id number] : 1945 Date: 01/23/2017 Age: 71y Height: 170.18 cm / 67.0 in Weight: 52.16 kg / 115.0 lbs Sex: F BSA: 1.6 Room#: [facility] Admit Date#: 01/22/2017 Type: Inpatient Referring: Maday Wilks MD Reading: Yunior Duarte DO [employer] Header Operator: Diane Briones RDCS CC: Jo Kerns MD Transthoracic Echocardiogram Indication: Syncope BP: 122/70 HR: 73 Rhythm: NSR with PVCs Findings History: Mitral valve stenosis, HTN, RA, bilater lung nodules, bronchiectasis, PAF. Technical Comments: The study quality is fair. Completed at 1100. Left Ventricle: The left ventricular chamber size is normal. There is no left ventricular hypertrophy. Global left ventricular wall motion and contractility are within normal limits. There is normal left ventricular systolic function. The estimated ejection fraction is 60-65%. Abnormal left ventricular diastolic filling is observed, consistent with impaired relaxation. Left Atrium: The left atrial chamber size is normal. Right Ventricle: The right ventricular chamber size and systolic function are within normal limits. Right Atrium: The right atrial cavity size is normal. Aortic Valve: The aortic valve is trileaflet. The aortic valve leaflets are mildly thickened. There is no evidence of aortic regurgitation. There is no evidence of aortic stenosis. Mitral Valve: Moderate mitral annular calcification present. Mild mitral leaflet calcification is visualized. There is a trace of mitral regurgitation. There is mild mitral stenosis. mean gradient in sinus rhythm 3.52 mmHg Tricuspid Valve: The tricuspid valve leaflets are normal. There is trace tricuspid regurgitation. No pulmonary hypertension is noted. There is no tricuspid stenosis. Pulmonic Valve: The pulmonic valve appears normal. There is no evidence of pulmonic regurgitation. There is no pulmonic stenosis. Pericardium: There is no significant pericardial effusion. Aorta: There is no dilatation of the ascending aorta. There is no dilatation of the aortic arch. Pulmonary Artery: The main pulmonary artery is not well visualized. Venous: The inferior vena cava appears normal in size. There is a greater than 50% respiratory change in the inferior vena cava dimension. Conclusions The left ventricular chamber size is normal. There is no left ventricular hypertrophy. Global left ventricular wall motion and contractility are within normal limits. There is normal left ventricular systolic function. The estimated ejection fraction is 60-65%. The left atrial chamber size is normal. The right ventricular chamber size and systolic function are within normal limits. Moderate mitral annular calcification present. There is mild mitral stenosis No pulmonary hypertension is noted. Aortic root is not well visualized, it appears mildly dilated. Compared to prior study from 10/2016, no significant changes noted. Measurements Name Value Normal Range RVIDd (AP) 2D 2.5 cm (0.9 - 2.6) RVDdMajor (2D) 3 cm (2.2 - 4.4) RAd ISD 4CH 4.9 cm (3.4 - 4.9) RA (A4C)W 3.6 cm (2.9 - 4.6) IVSd (2D) 0.8 cm (0.6 - 1) LVPWd (2D) 0.6 cm (0.6 - 1) LVIDd (2D) 3.6 cm (3.6 - 5.4) LVIDs (2D) 2.6 cm - LV FS (2D) 23 % (25 - 45) Aortic Annulus 1.7 cm (1.4 - 2.6) Ao root diameter (2D) 3.4 cm (2.1 - 3.5) Ascending Ao 3.3 cm (2.1 - 3.4) Aortic arch 1.8 cm (1.8 - 3.4) LA dimension (AP) 2D 2.6 cm (2.3 - 3.8) LAd ISD 4CH 4.8 cm (2.9 - 5.3) LA ISD 4CH W 3.2 cm (2.5 - 4.5) Name Value Normal Range LA ESV SP 4CH (A/L) 53 ml - LA ESV SP 2CH (A/L) 65 ml - LA ESV BP (A/L) 59 ml - LA ESV BP (A/L) index 37 ml/m2 - LA ESV SP 4CH (MOD) 51 ml - LA ESV SP 2CH (MOD) 62 ml - Name Value Normal Range MV E-wave Vmax 0.96 m/sec - MV deceleration time 349 msec - MV A-wave Vmax 1.18 m/sec - MV E:A ratio 0.82 ratio - LV septal e' Vmax 0.06 m/sec - LV lateral e' Vmax 0.05 m/sec - LV E:e' septal ratio 16 ratio - LV E:e' lateral ratio 19.2 ratio - Name Value Normal Range AV Vmax 1.2 m/sec - AV VTI 25.9 cm - AV peak gradient 5.79 mmHg - AV mean gradient 3.71 mmHg - LVOT Vmax 1.11 m/sec - LVOT VTI 23.88 cm - LVOT peak gradient 4.99 mmHg - LVOT mean gradient 3.17 mmHg - Name Value Normal Range MV Vmax 1.54 m/sec - MV VTI 37.69 cm - MV peak gradient 9.49 mmHg - MV mean gradient 3.51 mmHg - MV PHT 79.29 msec - MVA (PHT) 2.77 cm2 - Name Value Normal Range TR Vmax 2.4 m/sec - TR peak gradient 23 mmHg - RAP 3 mmHg - RVSP 26 mmHg - IVC diameter 1.8 cm - Name Value Normal Range PV Vmax 0.9 m/sec - PV peak gradient 3.29 mmHg -
[2017-01-23] MEDS ORDERED: azaTHIOprine TAB(*) 50 MG TAB PO SCH (15:30)
--- NOTE | 2017-01-24 02:44 | DS ---
CC: Dr. Kerns; Dr. Iverson; Dr. Villanueva; Dr. Lofton DISCHARGE SUMMARY: DATE OF ADMISSION: 01/22/17 DATE OF DISCHARGE: 01/23/17 HISTORY: This 71-year-old woman presented with syncope. She was at home alone. She had taken her me dications and had her breakfast an hour or two before the episode. She was standing in her laundry r oom. The next thing she knows is she woke up on the floor. Her right head, ribs and right leg were sore. She thinks she might have been out for 10 to 15 minutes, although I am not sure how she would estimate that. She always has her cellphone with her and called a friend and then an ambulance was c alled and brought her to the emergency room. I note that because of her arthritic problems, she cannot ever get up when she falls. She has had a number of mechanical falls and always has her cellphone with her because of that. However, she has n ever had syncope, lightheadedness in the past. She had no chest pain, shortness of breath or palpita tions. She felt fairly well when she woke up after this syncope. There was no continence of urine or tongue biting. The patient was admitted to the telemetry unit. She remained in tachycardia. There was no bradycardi a or pauses with exertion. She was somewhat tachycardic. However, she did not have lightheadedness. We are going to get orthostatic vital signs on her. She will have a transthoracic echocardiogram. The patient states she had one a few months ago in Dr. Lofton's office. I do not expect any significa nt change. She has some type of valvular lesion, possibly or MS, but my exam it would be fairly m ild. She seems to be well compensated. We will arrange for her to see Dr. Lofton within a week and I will leave it up to him to decide a furt her workup is indicated. FINAL DIAGNOSES: 1. Syncope. 2. Rheumatoid arthritis. DISCHARGE MEDICATIONS: 1. Tramadol 50 mg 4 times a day p.r.n. 2. Diclofenac 1% gel p.r.n. 3. Abatacept 500 mg infusion every 30 days. 4. Denosumab 60 mg subcu as prescribed. 5. Oxybutynin ER 10 mg daily. 6. Calcitriol 0.25 mg daily. 7. Prednisone 2 to 3 mg daily. 8. Pantoprazole 40 mg daily. 9. Clindamycin as prescribed. 10. Metoprolol succinate 25 mg daily. 11. Aspirin 81 mg daily. 12. Azathioprine 50 mg every Thursday, Thursday and Thursday. [id number]/[facility] #: [id number]
== END 2017-01-23 14:06 | disposition home or self-care (01) ==
LOC: ED 10:54 → MEDTELE 13:57
PROVIDERS: ADMIT Internal Medicine; ATTEND Internal Medicine
DX: R55 Syncope and collapse (principal); M06.9 Rheumatoid arthritis, unspecified; R51 Headache; M54.2 Cervicalgia; M81.0 Age-related osteoporosis without current pathological fracture; I48.0 Paroxysmal atrial fibrillation; Z79.899 Other long term (current) drug therapy; Z79.82 Long term (current) use of aspirin; Z88.1 Allergy status to other antibiotic agents; Z88.8 Allergy status to other drugs, medicaments and biological substances; Z88.0 Allergy status to penicillin; Z88.2 Allergy status to sulfonamides; R94.31 Abnormal electrocardiogram [ECG] [EKG]
CPT/HCPCS: 36415; 70450; 71010; 72125; 80053; 80307; 80320; 81003; 81015; 82140; 82550; 83605; 83735; 84443; 84484; 85025; 87040; 93005; 93306; 99285; A9270-GY; G0378; G0480; G8978-GP-CH; G8979-GP-CH; G8980-GP-CH; J1642; J7500

== ENCOUNTER 2017-04-29 14:34 | Emergency (ER) | payer MEDICARE ==
[2017-04-29] MEDS ORDERED: HYDROmorphone INJ* 1 MG/ML CARPUJECT SYRINGE IV ONE ×2 (15:03→18:08)
[2017-04-29] MEDS ORDERED: Ondansetron INJ* 2 MG/ML VIAL IV ONE (15:03)
[2017-04-29] MEDS ORDERED: NS 0.9% 1000 ML* 1,000 ML IV SCH (15:15)
[2017-04-29] MEDS ORDERED: LORazepam INJ* 2 MG/ML 1 ML VIAL IV ONE (15:39)
--- NOTE | 2017-04-29 16:09 | RAD ---
Indication: Left hip pain after fall. 4 views of the femur demonstrates a spiral fracture through the distal shaft of the femur. This is at the level just proximal to the right knee prosthesis and this is consistent with a stress riser fracture. Dorsal angulation is noted. IMPRESSION: Spiral fracture distal shaft of the femur just proximal to the femoral component of the knee prosthesis consistent with a stress riser fracture.
--- NOTE | 2017-04-29 18:12 | ED ---
Douglas Singh Angela, scribed for Kulwinder Morgan MD on 04/29/17 at 1459 . Lower Extremity - HPI Summary HPI Summary: This pt is a 71 y/o male presenting to [facility] via EMS for left leg pain today s/ p fall today. Pt reports she was walking up the stairs when her ankle or knee gave up. Pt notes her foot got caught and she states that she then fell. Denies head strike or LOC. She additionally notes her left fingers are numb. Denies hip pain, arm pain. Pt is currently on baby aspirin. She states Dr. Childs is her orthopedist. - History of Current Complaint Stated Complaint: LEFT LEG INJURY Time Seen by Provider: 04/29/17 14:53 Hx Obtained From: Patient Mechanism Of Injury: Fall From Height Of: Onset of Pain: Hours Onset/Duration: Still Present Location: Is Discrete @ - left leg Aggravating Factor(s): Movement Alleviating Factor(s): Rest - Allergies/Home Medications Allergies/Adverse Reactions: Allergies Allergy/AdvReac Type Severity Reaction Status Date / Time hydroxychloroquine Allergy Severe Difficulty Verified 04/29/17 15:32 Breathing propoxyphene Allergy Severe Difficulty Verified 04/29/17 15:32 Breathing Penicillins Allergy Intermediate Rash Verified 04/29/17 15:32 Sulfa (Sulfonamide Allergy Intermediate Rash Verified 04/29/17 15:32 Antibiotics) aspirin AdvReac Mild Tinnitus Verified 04/29/17 15:32 levofloxacin AdvReac Mild Dizziness Verified 04/29/17 15:32 PMH/Surg Hx/FS Hx/Imm Hx Endocrine/Hematology History: Reports: Hx Thyroid Disease Denies: Hx Anticoagulant Therapy, Hx Blood Disorders, Hx Blood Transfusions, Hx Bone Marrow Disease, Hx Diabetes, Hx Systemic Lupus Erythematosus, Hx Sickle Cell Disease, Hx Anemia, Hx Unexplained Bleeding, Other Endocrine/Hematological Disorders Cardiovascular History: Reports: Hx Hypertension - ON MEDS, Hx Valvular Heart Disease - MITRAL VALVE STENOSIS Denies: Hx Aneurysm, Hx Angina, Hx Angioplasty, Hx Auto Implanted Cardiovert Defib, Hx Cardiac Arrest, Hx Cardiomegaly, Hx Congenital Heart Disease, Hx Congestive Heart Failure, Hx Coronary Artery Disease, Hx Deep Vein Thrombosis, Hx Hypercholesterolemia, Hx Hypotension, Hx Pacemaker/ICD, Hx Peripheral Vascular Disease, Hx Rheumatic Fever, Hx Syncope, Other Cardiovascular Problems/ Disorders Respiratory History: Reports: Other Respiratory Problems/Disorders - BILAT LOWER LOBE LUNG NODULES Denies: Hx Asthma, Hx Bronchopulmonary Dysplasia, Hx Chronic Bronchitis, Hx Chronic Obstructive Pulmonary Disease (COPD), Hx Cystic Fibrosis, Hx Lung Cancer , Hx Pleural Effusion, Hx Pneumonia, Hx Pulmonary Edema, Hx Pulmonary Embolism, Hx Seasonal Allergies, Hx Sleep Apnea GI History: Denies: Hx Cirrhosis, Hx Crohn's Disease, Hx Diverticulosis, Hx Gall Bladder Disease, Hx Gastroesophageal Reflux Disease, Hx Gastrointestinal Bleed, Hx Hiatal Hernia, Hx Irritable Bowel, Hx Jaundice, Hx Obstructive Bowel, Hx Ileostomy, Hx Pyloric Stenosis, Hx Ulcer, Other GI Disorders History: Denies: Hx Acute Renal Failure, Hx Benign Prostatic Hyperplasia, Hx Chronic Renal Failure, Hx Dialysis, Hx Kidney Infection, Hx Kidney Stones, Hx Renal Disease, Other Problems/Disorders Musculoskeletal History: Reports: Hx Arthritis, Hx Back Problems, Hx Osteoporosis, Hx Scoliosis - C1-C2 DISPLACEMENT Denies: Hx Bursitis, Hx Congenital Bone Abnormalities, Hx Fibromyalgia, Hx Gout, Hx Orthopedic Injury, Hx Tendonitis, Other Musculoskeletal History Sensory History: Reports: Hx Cataracts - PT HAS IMPLANTS, Hx Contacts or Glasses - READING Denies: Hx Eye Injury, Hx Eye Prosthesis, Hx Glaucoma, Hx Macular Degeneration, Hx Vision Problem, Hx Deafness, Hx Hearing Aid, Hx Hearing Problem , Other Sensory Impairments Opthamlomology History: Reports: Hx Cataracts - PT HAS IMPLANTS, Hx Contacts or Glasses - READING Denies: Hx Eye Injury, Hx Eye Prosthesis, Hx Glaucoma, Hx Macular Degeneration, Hx Vision Problem, Other Sensory Impairments Neurological History: Reports: Other Neuro Impairments/Disorders - BELLS PALSY Denies: Hx Dementia, Hx Developmental Delay, Hx Headaches, Hx Migraine, Hx Seizures, Hx Spinal Cord Injury, Hx Transient Ischemic Attacks (TIA) Psychiatric History: Denies: Hx Anxiety, Hx Attention Deficit Hyperactivity Disorder, Hx Autism, Hx Eating Disorder, Hx Oppositional [place] Disorder, Hx Depression, Hx Panic Disorder, Hx Post Traumatic Stress Disorder, Hx Inpatient Treatment, Hx Community Mental Health Tx, Hx Schizophrenia, Hx Bipolar Disorder, Hx Suicide Attempt, Other Psychiatric Issues/Disorders - Cancer History Hx Hematologic Symptoms: No Hx Chemotherapy: No Hx Radiation Therapy: No - Surgical History Surgery Procedure, Year, and Place: LEFT HIP REPLACEMENT, RT UPPER ARM SEROMA, HYSTERECTOMY, HEMORRHOIDECTOMY, RT TSA, LT SHOULDER SURGERY, LT WRIST REPAIR, MULTIPLE I & Ds OF RIGHT UPPER ARM, BILAT KNEES, POWER PORT, BILAT CATARACTS, ULNAR NERVE REPAIR, CERVICAL DECOMPRESSION Hx Anesthesia Reactions: No Infectious Disease History: Denies: Hx Clostridium Difficile, Hx Hepatitis, Hx Human Immunodeficiency Virus (HIV), Hx of Known/Suspected MRSA, Hx Shingles, Hx Tuberculosis - Family History Known Family History: Positive: Cardiac Disease - Father, Hypertension - paternal grandmother, Other - Mother: rheumatoid arthritis, [place] - Social History Alcohol Use: None Alcohol Amount: 1 glass wine weekly Substance Use Type: Reports: None Smoking Status (MU): Never Smoked Tobacco Have You Smoked in the Last Year: No Review of Systems Negative: Fever Musculoskeletal: Other - left leg pain Negative: Other - arm pain Positive: Numbness - in left fingers All Other Systems Reviewed And Are Negative: Yes Physical Exam - Summary Physical Exam Summary: General: well-appearing, moderate pain distress Skin: warm, color reflects adequate perfusion, dry Head: normal Eyes: EOMI, CRESENCIO ENT: normal Neck: supple, nontender Respiratory: CTA, breath sounds present Cardiovascular: RRR Abdomen: soft, nontender Bowel: present Musculoskeletal: Tender to palpation on left distal femur. Good pulses. Good capillary refill. Neurological: normal, sensory/motor intact, A&O x3 Psychological: affect/mood appropriate Triage Information Reviewed: Yes Vital Signs On Initial Exam: Initial Vitals Temp Pulse Resp BP Pulse Ox 99.1 F 88 20 189/99 100 04/29/17 14:55 04/29/17 14:55 04/29/17 14:55 04/29/17 14:55 04/29/17 14:55 Vital Signs Reviewed: Yes Procedures - Splinting Location: LEFT FEMUR/LEG Hand-Made Type: orthoglass Splint: POSTERIOR SPLINT IN POSITION OF COMFORT Pre-Proc Neuro Vasc Exam: normal Post-Proc Neuro Vasc Exam: normal Diagnostics - Vital Signs Vital Signs Temp Pulse Resp BP Pulse Ox 04/29/17 17:00 67 16 145/70 100 04/29/17 16:30 75 17 153/76 100 04/29/17 16:00 75 19 162/88 100 04/29/17 15:56 169/87 04/29/17 15:52 18 04/29/17 15:10 18 04/29/17 15:02 87 100 04/29/17 14:55 99.1 F 88 20 189/99 100 - Laboratory Lab Statement: Any lab studies that have been ordered have been reviewed, and results considered in the medical decision making process. - Radiology Left femur XR Xray Interpretation: Positive (See Comments) - IMPRESSION: Spiral fracture distal shaft of the femur just proximal to the femoral component of the knee prosthesis consistent with a stress riser fracture. Dr. Morgan has reviewed this radiology report. Radiology Interpretation Completed By: Radiologist Lower Extremity Course/Dx - Course Course Of Treatment: Medications reviewed. Allergies noted. Left femur XR shows Spiral fracture distal shaft of the femur just proximal to the femoral component of the knee prosthesis consistent with a stress riser fracture. I discussed the case with Dr. Sheridan, orthopedist, who recommends to transfer the pt. I spoke with Dr. Pedraza, from [facility], who accepted the pt for transfer. DISCUSSED WITH DR SHERIDAN WHO REVIEWED THE X-RAYS. DUE TO THE PRIOR HIP AND KNEE REPLACEMENTS, THIS IS NOT A FRACTURE THAT [facility] CAN HANDLE. ACCEPTED IN TRANSFER TO [facility]. - Diagnoses Provider Diagnoses: Left femoral shaft fracture - Physician Notifications Discussed Care Of Patient With: Jing Sheridan Time Discussed With Above Provider: 16:40 Instructed by Provider To: Other - I discussed pt care with Dr. Sheridan, orthopedist. [17:39] I spoke with Dr. Pedraza, from [facility], who accepted the pt for transfer. Discharge - Discharge Plan Condition: Stable Disposition: TRANS HIGHER LVL OF CARE FAC Discharge Disposition Comment: [facility] Referrals: Jo Kerns MD [Primary Care Provider] - The documentation as recorded by the Douglas pichardo Angela accurately reflects the service I personally performed and the decisions made by me, Kulwinder Morgan MD.
[2017-04-29 19:06] VITALS: BP 165/89
== END 2017-04-29 18:59 | disposition short-term general hospital (02) ==
LOC: ED 14:34
DX: S72.342A Displaced spiral fracture of shaft of left femur, initial encounter for closed fracture (principal); W10.2XXA Fall (on)(from) incline, initial encounter; Y93.89 Activity, other specified; Y92.9 Unspecified place or not applicable; R20.0 Anesthesia of skin; E07.9 Disorder of thyroid, unspecified; I10 Essential (primary) hypertension; I05.0 Rheumatic mitral stenosis; Z96.642 Presence of left artificial hip joint; Z88.6 Allergy status to analgesic agent; Z88.1 Allergy status to other antibiotic agents; Z88.0 Allergy status to penicillin; Z88.2 Allergy status to sulfonamides; Z88.8 Allergy status to other drugs, medicaments and biological substances
CPT/HCPCS: 96361; 96374; 96375; 96376; 99283; J1170; J2060; J2405

== ENCOUNTER 2017-05-05 07:21 | Inpatient (IN) | payer MEDICARE ==
[2017-05-05] MEDS ORDERED: Bisacodyl SUPP* 10 MG SUPP PR PRN (11:52)
[2017-05-05] MEDS ORDERED: Magnesium Hydroxide LIQ* 30 ML UDC PO PRN (12:00)
[2017-05-05] MEDS: Senna TAB PO PRN (21:33)
[2017-05-05] MEDS: Enoxaparin(*) 30 MG/0.3 ML SYR SUBCUT SCH (21:34)
[2017-05-05] MEDS: Docusate CAP* 100 MG PO SCH (21:37)
--- NOTE | 2017-05-05 22:27 | HP ---
HISTORY AND PHYSICAL: DATE OF ADMISSION: 05/05/17 REASON FOR ADMISSION: Left femur fracture, status post ORIF of the same. HISTORY OF PRESENT ILLNESS: Nadiya Cobb is a 71-year-old female. She has a medical history significant for rheumatoid arthritis. She normally takes Orencia for this as well as Imuran. The patient has osteoporosis from years and years of prednisone treatment. She is still on prednisone 2 mg daily. The patient was in her usual state of health on 04/29/17. She was walking up the steps of her house. There were 3 steps to enter with bilateral rails. She felt her left leg buckle and fell to the ground. She is not sure if the bone broke and she fell or if she fell. Somebody was driving by and witnessed the event. They called 911. An ambulance came and brought her to [facility]. She had x-rays taken in the emergency room showing a spiral fracture of the distal shaft of the femur just proximal to the femoral component of the knee prosthesis. She had a previous left total knee replacement. It was decided to transfer the patient to [facility]. She was stabilized and then taken to the operating room on 04/30/[address] Blackman. She underwent an ORIF of the periprosthetic fracture. She was started on Lovenox postoperatively for DVT prophylaxis. Her Orencia was held, although it was not due to be given until 05/07/17. The patient's Imuran was resumed. The patient was made nonweightbearing after her surgery. She was felt to have physical therapy and occupational therapy needs. She is now being admitted for inpatient rehab so that she might return to independent living. PAST MEDICAL HISTORY: As mentioned, rheumatoid arthritis. She is on Orencia, Imuran and prednisone for this. She has coronary artery disease, congestive heart failure, hypertension. She has osteoporosis as a result of her years of prednisone treatment. She has multiple deformities of joints. She has had multiple joint replacements. She has had her shoulders replaced on both sides twice. She has had bilateral knee replacements and left total hip replacement, left elbow and right wrist surgeries. MEDICATIONS: The patient's current medications include: 1. Aspirin a day. 2. Imuran. 3. Calcitriol. 4. Vitamin D. 5. Lovenox. 6. Toprol XL. 7. Prilosec. 8. Ditropan. 9. Prednisone. 10. Tramadol. ALLERGIES: The patient has allergies listed to PLAQUENIL as well as DARVOCET and PENICILLIN, LEVAQUIN IV, LEVOPHED. SOCIAL HISTORY: She is a nonsmoker, nondrinker. Lives by herself in a house with 3 steps to enter. It is a one-zaki house. She does have family living in the area. REVIEW OF SYSTEMS: The patient reports no current shortness of breath or chest pain. PHYSICAL EXAMINATION VITAL SIGNS: Temperature is 98.3, blood pressure is 125/59, pulse is 80, respirations 16. HEENT: Her extraocular movements were intact. Tongue is midline. NECK: Supple. LUNGS: Sound clear to auscultation bilaterally. HEART: Sounds are regular. S1 and S2 are audible. ABDOMEN: Soft and nontender. EXTREMITIES: Her left leg has a bandage over her recent surgical wound on the left leg. She has multiple deformities in joints including her hands and toes. She has limited range of motion of both shoulders. NEUROLOGIC: She is awake, alert, oriented. Muscle strength is about 4+/5 throughout. FUNCTIONAL EXAM: She transfers with moderate amount of assistance. ASSESSMENT: Left distal periprosthetic femur fracture, status post ORIF of same. PLAN: Integrate her into a comprehensive and therapeutic rehab program with following goals: 1. Physical Therapy will work with the patient. They are going to work on functional transfer training, ambulation training with the walker. 2. Occupational therapy will see the patient, work on her activities of daily living including toileting and toilet transfers. 3. Lovenox for DVT prophylaxis. 4. Adequate analgesia. For now, we are going to continue Tramadol. 5. For her rheumatoid arthritis, we are going to continue her Imuran and her prednisone. We have a phone call into a adjunct philosophy faculty about the Orencia. 6. Continue Toprol XL for hypertension. At [facility], she did have a run of tachycardia. We will monitor for this. 7. supervisor volunteer services will be closely involved to make sure that any services and equipment the patient requires are in place prior to discharge. 8. For osteoporosis, continue calcitriol and vitamin D. 9. Continue Ditropan for overactive bladder. 10. Family training as appropriate. 11. Home with appropriate services. ESTIMATED LENGTH OF STAY: Twelve days. [id number]/[facility] #: [id number] [facility] CENT[facility]
[2017-05-06] MEDS: Omeprazole CAP* 20 MG PO SCH (06:03)
[2017-05-06] MEDS: Calcitriol CAP* 0.25 MCG PO SCH (08:14)
[2017-05-06] MEDS: Oxybutynin XL TAB* 5 MG PO SCH (08:14)
[2017-05-06] MEDS: Aspirin EC Low Dose* 81 MG TAB.EC PO SCH (08:15)
[2017-05-06] MEDS: Metoprolol Succinate XL TAB* 25 MG PO SCH (08:15)
[2017-05-06] MEDS: predniSONE TAB* 1 MG PO SCH (08:15)
[2017-05-06] MEDS: Cholecalciferol TAB* 1000 UNITS PO SCH (08:15)
[2017-05-06] MEDS: Docusate CAP* 100 MG PO SCH ×2 (08:15→20:50)
[2017-05-06] MEDS: Enoxaparin(*) 30 MG/0.3 ML SYR SUBCUT SCH ×2 (08:32→20:50)
[2017-05-06] MEDS: azaTHIOprine TAB(*) 50 MG TAB PO SCH (10:02)
[2017-05-06 11:26] LABS: ABS Basophils 0.1 10^3/ul (0-0.2); ABS Eosinophils 0.2 10^3/ul (0-0.6); ABS Lymphocytes 1.4 10^3/ul (1.0-4.8); ABS Monocytes 1.1 10^3/ul (0-0.8); ABS Neutrophils 7.5 10^3/ul (1.5-7.7); ABS Nucleated RBC 0 10^3/ul; Eosinophil % 2.3 % (0-6); Hematocrit 28 % (35-47); Hemoglobin 9.4 g/dl (12.0-16.0); Mean Corpuscular HGB Conc 34 g/dl (31-36); Mean Corpuscular Hemoglobin 28 pg (27-31); Mean Corpuscular Volume 84 fL (80-97); Mean Platelet Volume 9 um3 (7.4-10.4); Nucleated Red Blood Cells % 0; Platelet Count 371 10^3/ul (150-450); Red Blood Count 3.32 10^6/ul (4.0-5.4); Red Cell Distribution Width 16 % (10.5-15); White Blood Count 10.3 10^3/ul (3.5-10.8)
[2017-05-06 11:43] LABS: EGFR Non-African American 73.9 (>60)
--- NOTE | 2017-05-06 12:26 | PMRUTEAM ---
PMRU: Goals Current Status: Nursing: Current Status Skin Deviations [Left Medial Bruise Thigh] Skin Deviations [Right Skin Tear Buttocks] Skin Deviations [Left Lower Incision Leg] Skin Deviations [Left Arm] Bruise Physical Therapy: Current Status Bed Mobility Assistance Not Tested Transfer Moblility Assistance Min Assist Transfer/Bed Mobility Platform Walker Recommended Devices Ambulation Assistance Not Tested Ambulation Assistive Devices Platform Walker Occupational Therapy: Current Status Upper Body Dressing Supervision Lower Body Dressing Max Asst,Total Assist,2 Person Assist Bathing Mod Assist,Max Asst,2 Person Assist Toileting Total Assist Toilet Transfer Mod Assist,Max Asst,2 Person Assist Eating Supervision Rec Therapy: Current Status Summary of Assessment and Pt. was very engaged in conversation - talkative Clinical Impression and bright throughout. Pt. is very active in her community and identifies her main interest at volunteering at [facility] [place] at the [employer] in [place]. Pt. states she enjoys her life and was open to continued leisure visits. Treatment Goals Pt. will engage in leisure activities while on the unit. Treatment Plan Provide RT services and encourage involvement. Social Work: Current Status Discharge Plan return home with home care svs and family support Potential for Family Training pt's family are involved and supportive Anticipated Discharge Home Destination Discharge With VNS and family support Goals: Physical Therapy: Initial Goals Bed Mobility Assistance Independent Transfer Mobility Assistance Independent Transfer/Bed Mobility Pediatric Walker Recommended Devices Ambulation Independent Ambulation Recommended Devices Platform Walker Ambulation Distance 50 Wheelchair Propulsion Ability Independent Wheelchair Distance (ft) 150 Physical Therapy: Updated Goals Transfer/Bed Mobility Platform Walker Recommended Devices Occupational Therapy: Initial Goals Goals to be Completed in (Days 10-14 ) Upper Body Bathing Routine Modified Independent with Lower Body Bathing Routine Modified Independent with Upper Body Dressing Routine Modified Independent with Lower Body Dressing Routine Modified Independent with Toilet Hygeine and Clothing Modified Independent with Management Routine Toilet Transfer Routine Modified Independent with Step-In Shower Transfer Modified Independent with Routine Functional Transfers for ADL Modified Independent with Grooming Routine Modified Independent with Feeding Routine Independent Light Housekeeping Tasks Minimal Contact Assist Social Work: Goals Discharge Plan return home with home care svs and family support Potential for Family Training pt's family are involved and supportive Anticipated Discharge Home Destination Discharge With VNS and family support Care Plan: Care Plan DVT Prophylaxis- Improve/Maintain Start: 05/05/17 22:36 Freq: DAILY Status: Active Target: Protocol: Activity Type Activity Date Activity User E-Sign Co-Sign Detail Recorded Client Recorded Date Recorded By Document 05/06/17 00:27 [id number] 05/06/17 00:28 [id number] 05/06/17 00:27 PMRU Outcome: DVT Prophylaxis Outcome/Goals Remains Free of DVT TEDS Stockings on Every AM, Off at HS Discharge Planning - Improve/Maintain Start: 05/05/17 22:36 Freq: DAILY Status: Active Target: Protocol: Activity Type Activity Date Activity User E-Sign Co-Sign Detail Recorded Client Recorded Date Recorded By Document 05/06/17 00:27 [id number] 05/06/17 00:28 [id number] 05/06/17 00:27 PMRU Outcome: Discharge Planning Update Patient Family No Outcome/Goals Demonstrates Understanding of Discharge Plan Education-Improve/Maintain Start: 05/05/17 22:36 Freq: DAILY Status: Active Target: Protocol: Activity Type Activity Date Activity User E-Sign Co-Sign Detail Recorded Client Recorded Date Recorded By Document 05/06/17 00:27 [id number] [id number] 05/06/17 00:28 [id number] 05/06/17 00:27 PMRU Outcome: Education Outcome/Goals Demonstrate/ Verbalize Understanding of Written Discharge Instructions Encourage Questions /GI-Improve/Maintain Start: 05/05/17 22:36 Freq: DAILY Status: Active Target: Protocol: Activity Type Activity Date Activity User E-Sign Co-Sign Detail Recorded Client Recorded Date Recorded By Document 05/06/17 00:27 [id number] 05/06/17 00:28 [id number] 05/06/17 00:27 PMRU Outcome: Genitourinary/ Gastrointestinal Genitourinary- Outcome/Goals Maintain/ Achieve Urinary Continence Remain Free of Hospital- Acquired UTI Gastrointestinal-Outcome/Goals Maintain/ Achieve Bowel Regularity in Accordance with Pt's Baseline Prevent Constipation Mobility- Improve/Maintain Start: 05/05/17 18:11 Freq: DAILY Status: Active Target: Protocol: Activity Type Activity Date Activity User E-Sign Co-Sign Detail Recorded Client Recorded Date Recorded By Document 05/06/17 12:12 [id number] 05/06/17 12:12 [id number] 05/06/17 12:12 PMRU Outcome: Mobility Physical Therapy Evaluation and Yes Treatment Activity OOB with Assistance Yes NWB Yes: LLE Patient to be seen 5x/wk for 60-120 min/ Therex day for: Mobility Training Gait Training W/C Mobility Balance Outcome/Goals Maintain/ Achieve Baseline Mobility Status Improve Mobility Status Demonstrates Proper Use of Assistive Devices Free from Complications of Immobility Progression Toward Outcome/Goals Progressing Bed Mobility Yes: independent. Transfers Yes: independent with RW with B platform attachements. Gait x ft Yes: independent 15' W/C Mobility x ft Yes: independent 150 ' Pain/Comfort- Improve/Maintain Start: 05/05/17 22:36 Freq: DAILY Status: Active Target: Protocol: Activity Type Activity Date Activity User E-Sign Co-Sign Detail Recorded Client Recorded Date Recorded By Document 05/06/17 00:27 [id number] 05/06/17 00:28 [id number] 05/06/17 00:27 PMRU Outcome: Pain/Comfort Outcome/Goals Demonstrates Knowledge and Use of Available Comfort Measures Maintain Comfort Level Allowing Patient to Fully Participate in Rehab Outcome/Goals Met Comment pt denies pain at this time Safety- Improve/Maintain Start: 05/05/17 22:36 Freq: DAILY Status: Active Target: Protocol: Activity Type Activity Date Activity User E-Sign Co-Sign Detail Recorded Client Recorded Date Recorded By Document 05/06/17 00:27 [id number] 05/06/17 00:28 [id number] 05/06/17 00:27 PMRU Outcome: Safety Outcome/Goals Remain Free of Injury or Harm Prevent Falls/ Injury Skin- Improve/Maintain Start: 05/05/17 22:36 Freq: DAILY Status: Active Target: Protocol: Activity Type Activity Date Activity User E-Sign Co-Sign Detail Recorded Client Recorded Date Recorded By Document 05/06/17 00:27 [id number] 05/06/17 00:28 [id number] 05/06/17 00:27 PMRU Outcome: Skin Skin Risk Level Medium Skin Orders Dressing Change Turn/Position q2hr While in Bed Outcome/Goals Maintain/ Improve Skin Intergrity Surgical Incisions Healing Medicine Note: Length of Stay: [] Anticipated Discharge Destination: Home Tentative Discharge Date: [] Discharged to: []
[2017-05-06] MEDS: Senna TAB PO PRN (20:44)
--- NOTE | 2017-05-06 20:49 | PN ---
Progress Note Date of Service: 05/06/17 Note: JOSE MANUEL ECHEVARRIA was visited. Therapy notes read and reviewed. She did okay with her first day of therapy. Spirits are good. I spoke to Dr. Iverson who advises holding [facility] for 4-6 weeks. Current Medications: Active Medications Generic Name Dose Route Start Last Admin Trade Name Freq PRN Reason Stop Dose Admin Acetaminophen 650 mg 05/05/17 11:52 Tylenol Tab* PO Q6H PRN FEVER/PAIN Aspirin 81 mg 05/06/17 09:00 05/06/17 08:15 Aspirin Ec Low Dose* PO 81 mg DAILY DARRIN Administration Azathioprine 50 mg 05/06/17 09:00 05/06/17 10:02 Imuran Tab(*) PO 50 mg MOWEFR DARRIN Administration Bisacodyl 10 mg 05/05/17 11:52 Dulcolax Supp* [place] DAILY PRN CONSTIPATION Calcitriol 0.25 mcg 05/06/17 09:00 05/06/17 08:14 Rocaltrol Cap* PO 0.25 mcg DAILY DARRIN Administration Cholecalciferol 1,000 units 05/06/17 09:00 05/06/17 08:15 Vitamin D Tab* PO 1,000 units DAILY DARRIN Administration Docusate Sodium 100 mg 05/05/17 21:00 05/06/17 08:15 Colace Cap* PO 100 mg BID DARRIN Administration Enoxaparin Sodium 30 mg 05/05/17 21:00 05/06/17 08:32 Lovenox(*) SUBCUT 30 mg Q12H DARRIN Administration Magnesium Hydroxide 30 ml 05/05/17 12:00 Milk Of Magnesia Liq* PO Q6H PRN CONSTIPATION Metoprolol Succinate 50 mg 05/06/17 09:00 05/06/17 08:15 Toprol Xl Tab* PO 50 mg DAILY DARRIN Administration Omeprazole 20 mg 05/06/17 07:30 05/06/17 06:03 Prilosec Cap* PO 20 mg DAILY@0730 DARRIN Administration Oxybutynin Chloride 10 mg 05/06/17 09:00 05/06/17 08:14 Ditropan Xl Tab* PO 10 mg DAILY DARRIN Administration Prednisone 2 mg 05/06/17 09:00 05/06/17 08:15 Deltasone Tab* PO 2 mg DAILY DARRIN Administration Senna 2 tab 05/05/17 11:52 05/06/17 20:44 Senokot Tab* PO 2 tab BEDTIME PRN Administration CONSTIPATION Tramadol HCl 50 mg 05/05/17 12:01 Ultram* PO Q6H PRN PAIN - MODERATE Vital Signs: Vital Signs Temp Pulse Resp BP Pulse Ox 98.5 F 84 16 98/54 100 05/06/17 15:50 05/06/17 15:50 05/06/17 15:50 05/06/17 15:50 05/06/17 20:00 Lab Results: Laboratory Results - last 24 hr 05/06/17 05/06/17 11:02 11:02 WBC 10.3 RBC 3.32 L Hgb 9.4 L Hct 28 L MCV 84 MCH 28 MCHC 34 RDW 16 H Plt Count 371 MPV 9 Neut % (Auto) 72.4 Lymph % (Auto) 14.0 L [place] % (Auto) 10.2 H Eos % (Auto) 2.3 Baso % (Auto) 1.1 Absolute Neuts (auto) 7.5 Absolute Lymphs (auto) 1.4 Absolute Monos (auto) 1.1 H Absolute Eos (auto) 0.2 Absolute Basos (auto) 0.1 Absolute Nucleated RBC 0 Nucleated RBC % 0 Sodium 133 Potassium 3.7 Chloride 96 L Carbon Dioxide 29 Anion Gap 8 BUN 20 Creatinine 0.77 Est GFR ( Amer) 95.0 Est GFR (Non-Af Amer) 73.9 BUN/Creatinine Ratio 26.0 H Glucose 121 H Calcium 9.2 Total Bilirubin 0.70 AST 19 ALT 8 Alkaline Phosphatase 51 Total Protein 6.9 Albumin 3.7 Globulin 3.2 Albumin/Globulin Ratio 1.2 Exam: LUNGS: clear bilat HEART: reg rhythm ABDOMEN: Soft +BS EXTREMITIES: wound LLE clean. No edema Assessment/Plan: 1. Periprosthetic Left femur fracture: NWB LLE. PT/OT. 2. Rheumatoid Arthritis: Hold Orencia, per Dr. Iverson. Imuran. Prednisone 3. Osteoporosis: Calcitriol/Vit D 4. DVT Prophylaxis: Lovenox 5. Overactive Bladder: Ditropan 6. Coronary Artey Disease: Toprol/ASA 05/06/17 20:50
[2017-05-07] MEDS: Omeprazole CAP* 20 MG PO SCH (05:50)
[2017-05-07] MEDS: Cholecalciferol TAB* 1000 UNITS PO SCH (07:58)
[2017-05-07] MEDS: predniSONE TAB* 1 MG PO SCH (07:58)
[2017-05-07] MEDS: Docusate CAP* 100 MG PO SCH ×2 (07:59→20:08)
[2017-05-07] MEDS: Oxybutynin XL TAB* 5 MG PO SCH (07:59)
[2017-05-07] MEDS: Aspirin EC Low Dose* 81 MG TAB.EC PO SCH (07:59)
[2017-05-07] MEDS: Calcitriol CAP* 0.25 MCG PO SCH (07:59)
[2017-05-07] MEDS: Metoprolol Succinate XL TAB* 25 MG PO SCH (07:59)
[2017-05-07] MEDS: Enoxaparin(*) 30 MG/0.3 ML SYR SUBCUT SCH ×2 (08:00→20:04)
--- NOTE | 2017-05-07 19:35 | PN ---
Progress Note Date of Service: 05/07/17 Note: JOSE MANUEL ECHEVARRIA was visited. Therapy notes read and reviewed. She was able to hop a few steps today. Feels ok. Daughter is looking into a used power w/c Current Medications: Active Medications Generic Name Dose Route Start Last Admin Trade Name Freq PRN Reason Stop Dose Admin Acetaminophen 650 mg 05/05/17 11:52 Tylenol Tab* PO Q6H PRN FEVER/PAIN Aspirin 81 mg 05/06/17 09:00 05/07/17 07:59 Aspirin Ec Low Dose* PO 81 mg DAILY DARRIN Administration Azathioprine 50 mg 05/06/17 09:00 05/06/17 10:02 Imuran Tab(*) PO 50 mg MOWEFR DARRIN Administration Bisacodyl 10 mg 05/05/17 11:52 Dulcolax Supp* [place] DAILY PRN CONSTIPATION Calcitriol 0.25 mcg 05/06/17 09:00 05/07/17 07:59 Rocaltrol Cap* PO 0.25 mcg DAILY DARRIN Administration Cholecalciferol 1,000 units 05/06/17 09:00 05/07/17 07:58 Vitamin D Tab* PO 1,000 units DAILY DARRIN Administration Docusate Sodium 100 mg 05/05/17 21:00 05/07/17 07:59 Colace Cap* PO 100 mg BID DARRIN Administration Enoxaparin Sodium 30 mg 05/05/17 21:00 05/07/17 08:00 Lovenox(*) SUBCUT 30 mg Q12H DARRIN Administration Magnesium Hydroxide 30 ml 05/05/17 12:00 Milk Of Magnesia Liq* PO Q6H PRN CONSTIPATION Metoprolol Succinate 50 mg 05/06/17 09:00 05/07/17 07:59 Toprol Xl Tab* PO 50 mg DAILY DARRIN Administration Omeprazole 20 mg 05/06/17 07:30 05/07/17 05:50 Prilosec Cap* PO 20 mg DAILY@0730 DARRIN Administration Oxybutynin Chloride 10 mg 05/06/17 09:00 05/07/17 07:59 Ditropan Xl Tab* PO 10 mg DAILY DARRIN Administration Prednisone 2 mg 05/06/17 09:00 05/07/17 07:58 Deltasone Tab* PO 2 mg DAILY DARRIN Administration Senna 2 tab 05/05/17 11:52 05/06/17 20:44 Senokot Tab* PO 2 tab BEDTIME PRN Administration CONSTIPATION Tramadol HCl 50 mg 05/05/17 12:01 Ultram* PO Q6H PRN PAIN - MODERATE Vital Signs: Vital Signs Temp Pulse Resp BP Pulse Ox 98.3 F 75 16 109/58 100 05/07/17 15:15 05/07/17 15:15 05/07/17 15:15 05/07/17 15:15 05/07/17 16:32 Exam: LUNGS: clear bilat HEART: reg rhythm ABDOMEN: Soft +BS EXTREMITIES: wound LLE clean. No edema Assessment/Plan: 1. Periprosthetic Left femur fracture: NWB LLE. PT/OT. 2. Rheumatoid Arthritis: Imuran. Prednisone. Hold Orencia, per Dr. Iverson. 3. Osteoporosis: Calcitriol/Vit D 4. DVT Prophylaxis: Lovenox 5. Overactive Bladder: Ditropan 6. Coronary Artey Disease: Toprol/ASA 7. Advanced directives: Has HCP. Full code 05/07/17 19:36
[2017-05-08] MEDS: traMADol TAB* 50 MG PO PRN (01:48)
[2017-05-08] MEDS: Docusate CAP* 100 MG PO SCH ×2 (08:18→21:49)
[2017-05-08] MEDS: Aspirin EC Low Dose* 81 MG TAB.EC PO SCH (08:18)
[2017-05-08] MEDS: Oxybutynin XL TAB* 5 MG PO SCH (08:18)
[2017-05-08] MEDS: Calcitriol CAP* 0.25 MCG PO SCH (08:18)
[2017-05-08] MEDS: predniSONE TAB* 1 MG PO SCH (08:18)
[2017-05-08] MEDS: Cholecalciferol TAB* 1000 UNITS PO SCH (08:18)
[2017-05-08] MEDS: Omeprazole CAP* 20 MG PO SCH (08:19)
[2017-05-08] MEDS: azaTHIOprine TAB(*) 50 MG TAB PO SCH (08:19)
[2017-05-08] MEDS: Metoprolol Succinate XL TAB* 25 MG PO SCH (08:19)
[2017-05-08] MEDS: Enoxaparin(*) 30 MG/0.3 ML SYR SUBCUT SCH ×2 (08:21→21:49)
--- NOTE | 2017-05-08 10:25 | PN ---
Progress Note Date of Service: 05/08/17 Note: JOSE MANUEL ECHEVARRIA was visited. Nursing and therapy notes read and reviewed. Pt says there is an electric WC at [facility] but someone needs to go look at it to see if it is appropriate. Also received Magnesium IV prior to d/c from [facility] and wonders if stable now. No chest pain, shortness of breath of abdominal pain except for an episode last night in RUQ that she has had before from azathioprine. Dr. Iverson had decreased dose to 3x/wk and that improved it and it has been about 1.5yrs since she has had this symptom. She used a warm pack and tramadol and it went away and feels fine now. 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 She asks if her port needs flushing since not getting Orencia. Current Medications: Active Medications Generic Name Dose Route Start Last Admin Trade Name Freq PRN Reason Stop Dose Admin Acetaminophen 650 mg 05/05/17 11:52 Tylenol Tab* PO Q6H PRN FEVER/PAIN Aspirin 81 mg 05/06/17 09:00 05/08/17 08:18 Aspirin Ec Low Dose* PO 81 mg DAILY DARRIN Administration Azathioprine 50 mg 05/06/17 09:00 05/08/17 08:19 Imuran Tab(*) PO 50 mg MOWEFR DARRIN Administration Bisacodyl 10 mg 05/05/17 11:52 Dulcolax Supp* [place] DAILY PRN CONSTIPATION Calcitriol 0.25 mcg 05/06/17 09:00 05/08/17 08:18 Rocaltrol Cap* PO 0.25 mcg DAILY DARRIN Administration Cholecalciferol 1,000 units 05/06/17 09:00 05/08/17 08:18 Vitamin D Tab* PO 1,000 units DAILY DARRIN Administration Docusate Sodium 100 mg 05/05/17 21:00 05/08/17 08:18 Colace Cap* PO 100 mg BID DARRIN Administration Enoxaparin Sodium 30 mg 05/05/17 21:00 05/08/17 08:21 Lovenox(*) SUBCUT 30 mg Q12H DARRIN Administration Magnesium Hydroxide 30 ml 05/05/17 12:00 Milk Of Magnesia Liq* PO Q6H PRN CONSTIPATION Metoprolol Succinate 50 mg 05/06/17 09:00 05/08/17 08:19 Toprol Xl Tab* PO 25 mg DAILY DARRIN Administration Omeprazole 20 mg 05/06/17 07:30 05/08/17 08:19 Prilosec Cap* PO 20 mg DAILY@0730 DARRIN Administration Oxybutynin Chloride 10 mg 05/06/17 09:00 05/08/17 08:18 Ditropan Xl Tab* PO 10 mg DAILY DARRIN Administration Prednisone 2 mg 05/06/17 09:00 05/08/17 08:18 Deltasone Tab* PO 2 mg DAILY DARRIN Administration Senna 2 tab 05/05/17 11:52 05/06/17 20:44 Senokot Tab* PO 2 tab BEDTIME PRN Administration CONSTIPATION Tramadol HCl 50 mg 05/05/17 12:01 05/08/17 01:48 Ultram* PO 50 mg Q6H PRN Administration PAIN - MODERATE Vital Signs: Vital Signs Temp Pulse Resp BP Pulse Ox 97.9 F 77 24 106/51 99 05/08/17 04:59 05/08/17 04:59 05/08/17 08:00 05/08/17 04:59 05/08/17 08:00 Exam: GEN: no acute distress. alert and appropriate. LUNGS: clear bilaterally HEART: regular rate and rhythm ABDOMEN: Soft, +BS, non-tender, non-distended EXTREMITIES: No edema. Dressing to left leg intact and clean. Assessment/Plan: 71yo woman with RA and osteoporosis secondary to prednisone s/p left periprosthetic femur fracture. 1. Periprosthetic Left femur fracture: NWB LLE. PT/OT. 2. Rheumatoid Arthritis: Imuran. Prednisone. Hold Orencia, per Dr. Iverson. Will flush port today with heparin and draw labs at same time. 3. Osteoporosis: Calcitriol/Vit D 4. DVT Prophylaxis: Lovenox 5. Overactive Bladder: Ditropan 6. Coronary Artey Disease: Toprol/ASA 7. Advanced directives: Has HCP. Full code 8. Anemia: f/u H/H today. 9. Hypomagnesemia: f/u P3 and Mg today. 10. Est LOS: IPOC today. 05/08/17 10:24
[2017-05-08 11:28] LABS: Hematocrit 27 % (35-47); Hemoglobin 8.9 g/dl (12.0-16.0)
[2017-05-08 11:55] LABS: EGFR Non-African American 78.6 (>60)
--- NOTE | 2017-05-08 12:38 | PMRUTEAM ---
PMRU: Goals Current Status: Nursing: Current Status Skin Deviations [Left Medial Bruise Thigh] Skin Deviations [Right Skin Tear Buttocks] Skin Deviations [Left Lower Incision Leg] Skin Deviations [Left Arm] Bruise Skin Deviation Description [ dressing in place Left Medial Thigh] Physical Therapy: Current Status Bed Mobility Assistance Supervision Transfer Moblility Assistance Contact Guard Assist,Min Assist Transfer/Bed Mobility Platform Walker Recommended Devices Ambulation Assistance not tested Ambulation Assistive Devices Platform Walker Occupational Therapy: Current Status Upper Body Dressing Min Assist Lower Body Dressing Mod Assist Bathing Mod Assist Toileting Total Assist Toilet Transfer Mod Assist Eating Supervision Rec Therapy: Current Status Summary of Assessment and Pt. was very engaged in conversation - talkative Clinical Impression and bright throughout. Pt. is very active in her community and identifies her main interest at volunteering at [facility] and at the [employer] in [place]. Pt. states she enjoys her life and was open to continued leisure visits. Treatment Goals Pt. will engage in leisure activities while on the unit. Treatment Plan Provide RT services and encourage involvement. Social Work: Current Status Discharge Plan return home with home care svs and family support Potential for Family Training pt's family are involved and supportive Anticipated Discharge Home Destination Discharge With VNS and family support Goals: Physical Therapy: Initial Goals Bed Mobility Assistance Independent Transfer Mobility Assistance Independent Transfer/Bed Mobility Platform Walker Recommended Devices Ambulation Independent Ambulation Recommended Devices Platform Walker Ambulation Distance 15 Wheelchair Propulsion Ability Independent Wheelchair Distance (ft) 150 Occupational Therapy: Initial Goals Goals to be Completed in (Days 10-14 ) Upper Body Bathing Routine Modified Independent with Lower Body Bathing Routine Modified Independent with Upper Body Dressing Routine Modified Independent with Lower Body Dressing Routine Modified Independent with Toilet Hygeine and Clothing Modified Independent with Management Routine Toilet Transfer Routine Modified Independent with Step-In Shower Transfer Modified Independent with Routine Functional Transfers for ADL Modified Independent with Grooming Routine Modified Independent with Feeding Routine Independent Light Housekeeping Tasks Minimal Contact Assist Social Work: Goals Discharge Plan return home with home care svs and family support Potential for Family Training pt's family are involved and supportive Anticipated Discharge Home Destination Discharge With VNS and family support Care Plan: Care Plan ADL's - Improve/Maintain Start: 05/06/17 14:49 Freq: DAILY Status: Active Target: Protocol: Activity Type Activity Date Activity User E-Sign Co-Sign Detail Recorded Client Recorded Date Recorded By Document 05/07/17 14:51 [id number] [id number] 05/07/17 14:51 [id number] 05/07/17 14:51 PMRU Outcome: ADL's/ADL Transfers Orders/Interventions Occupational Therapy Evaluation & Treatment Communication Tool in Patient Room Device Yes Address Deficits Secondary To: left periprosthetic femur fx s/p ORIF Patient to receive OT 5x/wk for 60-120 Therex min/day Self Care Management Group Therapy UE/LE ADL's with Assist Yes: Zeke ADL Transfers with Assist Yes: Zeke Toileting: Transfers,Clothing Management Yes: Zeke ,Hygeine w/Assist Light Kitchen/Laundry w/Assist Yes: Tiffany Progression Toward Outcome/Goals Progressing Outcome/Goals Met Pt participated well in treatment session, limited from overall joint issues from longstanding h/ o and treatment for RA. Pt reports she will be unable to doff/don LLE brace, currently with difficulty completing hygiene/ clothing management in standing 2* balance deficits and NWB LLE, will benefit from continued skilled OT to maximize independence and safety. DVT Prophylaxis- Improve/Maintain Start: 05/05/17 22:36 Freq: DAILY Status: Active Target: Protocol: Activity Type Activity Date Activity User E-Sign Co-Sign Detail Recorded Client Recorded Date Recorded By Document 05/08/17 01:09 [id number] [id number] 05/08/17 01:11 [id number] 05/08/17 01:09 PMRU Outcome: DVT Prophylaxis Outcome/Goals Remains Free of DVT TEDS Stockings on Every AM, Off at HS Progression Toward Outcome/Goals Progressing Discharge Planning - Improve/Maintain Start: 05/05/17 22:36 Freq: DAILY Status: Active Target: Protocol: Activity Type Activity Date Activity User E-Sign Co-Sign Detail Recorded Client Recorded Date Recorded By Document 05/07/17 00:27 [id number] [id number] 05/07/17 00:28 [id number] 05/07/17 00:27 PMRU Outcome: Discharge Planning Update Patient Family No Outcome/Goals Demonstrates Understanding of Discharge Plan Progression Toward Outcome/Goals Progressing Education-Improve/Maintain Start: 05/05/17 22:36 Freq: DAILY Status: Active Target: Protocol: Activity Type Activity Date Activity User E-Sign Co-Sign Detail Recorded Client Recorded Date Recorded By Document 05/08/17 01:09 [id number] [id number] 05/08/17 01:11 [id number] 05/08/17 01:09 PMRU Outcome: Education Outcome/Goals Demonstrate/ Verbalize Understanding of Written Discharge Instructions Encourage Questions Progression Toward Outcome/Goals Progressing /GI-Improve/Maintain Start: 05/05/17 22:36 Freq: DAILY Status: Active Target: Protocol: Activity Type Activity Date Activity User E-Sign Co-Sign Detail Recorded Client Recorded Date Recorded By Document 05/08/17 01:09 [id number] [id number] 05/08/17 01:11 05/08/17 01:09 PMRU Outcome: Genitourinary/ Gastrointestinal Genitourinary- Outcome/Goals Maintain/ Achieve Urinary Continence Remain Free of Hospital- Acquired UTI Gastrointestinal-Outcome/Goals Maintain/ Achieve Bowel Regularity in Accordance with Pt's Baseline Prevent Constipation Progression Toward Outcome/Goals - Progressing Progression Toward Outcome/Goals - GI Progressing Mobility- Improve/Maintain Start: 05/05/17 18:11 Freq: DAILY Status: Active Target: Protocol: Activity Type Activity Date Activity User E-Sign Co-Sign Detail Recorded Client Recorded Date Recorded By Document 05/07/17 10:43 [id number] 05/07/17 10:43 [id number] 05/07/17 10:43 PMRU Outcome: Mobility Physical Therapy Evaluation and Yes Treatment Activity OOB with Assistance Yes NWB Yes: LLE Patient to be seen 5x/wk for 60-120 min/ Therex day for: Mobility Training Gait Training W/C Mobility Balance Outcome/Goals Maintain/ Achieve Baseline Mobility Status Improve Mobility Status Demonstrates Proper Use of Assistive Devices Free from Complications of Immobility Progression Toward Outcome/Goals Progressing Bed Mobility Yes: independent. Transfers Yes: independent with RW with B platform attachements. Gait x ft Yes: independent 15' W/C Mobility x ft Yes: independent 150 ' Pain/Comfort- Improve/Maintain Start: 05/05/17 22:36 Freq: DAILY Status: Active Target: Protocol: Activity Type Activity Date Activity User E-Sign Co-Sign Detail Recorded Client Recorded Date Recorded By Document 05/08/17 01:09 [id number] 05/08/17 01:11 [id number] 05/08/17 01:09 PMRU Outcome: Pain/Comfort Outcome/Goals Demonstrates Knowledge and Use of Available Comfort Measures Maintain Comfort Level Allowing Patient to Fully Participate in Rehab Progression Toward Outcome/Goals Progressing Safety- Improve/Maintain Start: 05/05/17 22:36 Freq: DAILY Status: Active Target: Protocol: Activity Type Activity Date Activity User E-Sign Co-Sign Detail Recorded Client Recorded Date Recorded By Document 05/08/17 01:09 [id number] 05/08/17 01:11 [id number] 05/08/17 01:09 PMRU Outcome: Safety Outcome/Goals Remain Free of Injury or Harm Prevent Falls/ Injury Progression Toward Outcome/Goals Progressing Skin- Improve/Maintain Start: 05/05/17 22:36 Freq: DAILY Status: Active Target: Protocol: Activity Type Activity Date Activity User E-Sign Co-Sign Detail Recorded Client Recorded Date Recorded By Document 05/08/17 01:09 [id number] [id number] 05/08/17 01:11 [id number] 05/08/17 01:09 PMRU Outcome: Skin Skin Risk Level Medium Skin Orders Dressing Change Turn/Position q2hr While in Bed Outcome/Goals Maintain/ Improve Skin Intergrity Surgical Incisions Healing Progression Toward Outcome/Goals Progressing Medicine Note: Length of Stay: [05/22/17] Anticipated Discharge Destination: Home Tentative Discharge Date: [05/22/17] Discharged to: [home]
[2017-05-09] MEDS: Omeprazole CAP* 20 MG PO SCH (07:17)
[2017-05-09] MEDS: predniSONE TAB* 1 MG PO SCH (08:08)
[2017-05-09] MEDS: Aspirin EC Low Dose* 81 MG TAB.EC PO SCH (08:08)
[2017-05-09] MEDS: Metoprolol Succinate XL TAB* 25 MG PO SCH (08:08)
[2017-05-09] MEDS: Docusate CAP* 100 MG PO SCH ×2 (08:09→21:00)
[2017-05-09] MEDS: Magnesium Oxide TAB* 400 MG PO SCH (08:09)
[2017-05-09] MEDS: Oxybutynin XL TAB* 5 MG PO SCH (08:09)
[2017-05-09] MEDS: Enoxaparin(*) 30 MG/0.3 ML SYR SUBCUT SCH ×2 (08:10→21:01)
[2017-05-09] MEDS: Cholecalciferol TAB* 1000 UNITS PO SCH (08:10)
[2017-05-09] MEDS: Calcitriol CAP* 0.25 MCG PO SCH (08:10)
--- NOTE | 2017-05-09 10:14 | PN ---
Progress Note Date of Service: 05/09/17 Note: JOSE MANUEL ECHEVARRIA was visited. Nursing and therapy notes read and reviewed. No chest pain, shortness of breath or abdominal pain. She has been refusing the full 50mg dose of metoprolol XL since at home she was only taking 25mg. She has done this the last 2 days and says she has felt good. She had some tachycardia at [facility] and that is why the dose was increased. Current Medications: Active Medications Generic Name Dose Route Start Last Admin Trade Name Freq PRN Reason Stop Dose Admin Acetaminophen 650 mg 05/05/17 11:52 Tylenol Tab* PO Q6H PRN FEVER/PAIN Aspirin 81 mg 05/06/17 09:00 05/09/17 08:08 Aspirin Ec Low Dose* PO 81 mg DAILY DARRIN Administration Azathioprine 50 mg 05/06/17 09:00 05/08/17 08:19 Imuran Tab(*) PO 50 mg MOWEFR DARRIN Administration Bisacodyl 10 mg 05/05/17 11:52 Dulcolax Supp* [place] DAILY PRN CONSTIPATION Calcitriol 0.25 mcg 05/06/17 09:00 05/09/17 08:10 Rocaltrol Cap* PO 0.25 mcg DAILY DARRIN Administration Cholecalciferol 1,000 units 05/06/17 09:00 05/09/17 08:10 Vitamin D Tab* PO 1,000 units DAILY DARRIN Administration Docusate Sodium 100 mg 05/05/17 21:00 05/09/17 08:09 Colace Cap* PO 100 mg BID DARRIN Administration Enoxaparin Sodium 30 mg 05/05/17 21:00 05/09/17 08:10 Lovenox(*) SUBCUT 30 mg Q12H DARRIN Administration Magnesium Hydroxide 30 ml 05/05/17 12:00 Milk Of Magnesia Liq* PO Q6H PRN CONSTIPATION Magnesium Oxide 400 mg 05/09/17 09:00 05/09/17 08:09 Magox 400 Tab* PO 400 mg DAILY DARRIN Administration Metoprolol Succinate 50 mg 05/06/17 09:00 05/09/17 08:08 Toprol Xl Tab* PO 25 mg DAILY DARRIN Administration Omeprazole 20 mg 05/06/17 07:30 05/09/17 07:17 Prilosec Cap* PO 20 mg DAILY@0730 DARRIN Administration Oxybutynin Chloride 10 mg 05/06/17 09:00 05/09/17 08:09 Ditropan Xl Tab* PO 10 mg DAILY DARRIN Administration Prednisone 2 mg 05/06/17 09:00 05/09/17 08:08 Deltasone Tab* PO 2 mg DAILY DARRIN Administration Senna 2 tab 05/05/17 11:52 05/06/17 20:44 Senokot Tab* PO 2 tab BEDTIME PRN Administration CONSTIPATION Tramadol HCl 50 mg 05/05/17 12:01 05/08/17 01:48 Ultram* PO 50 mg Q6H PRN Administration PAIN - MODERATE Vital Signs: Vital Signs Temp Pulse Resp BP Pulse Ox 98.2 F 75 20 106/55 100 05/09/17 06:23 05/09/17 06:23 05/09/17 06:23 05/09/17 06:23 05/09/17 06:23 Lab Results: Laboratory Results - last 24 hr 05/08/17 05/08/17 11:15 11:15 Hgb 8.9 L Hct 27 L Sodium 133 Potassium 4.0 Chloride 100 L Carbon Dioxide 28 Anion Gap 5 BUN 16 Creatinine 0.73 Est GFR ( Amer) 101.1 Est GFR (Non-Af Amer) 78.6 BUN/Creatinine Ratio 21.9 H Glucose 123 H Calcium 9.0 Magnesium 1.9 Exam: GEN: no acute distress. alert and appropriate. LUNGS: clear bilaterally HEART: regular rate and rhythm ABDOMEN: Soft, +BS, non-tender, non-distended EXTREMITIES: No edema. Dressing to left leg intact and clean. Assessment/Plan: 71yo woman with RA and osteoporosis secondary to prednisone s/p left periprosthetic femur fracture. 1. Periprosthetic Left femur fracture: NWB LLE. PT/OT. 2. Rheumatoid Arthritis: Imuran. Prednisone. Hold Orencia, per Dr. Iverson. Port flushed 05/08/17. 3. Osteoporosis: Calcitriol/Vit D 4. DVT Prophylaxis: Lovenox 5. Overactive Bladder: Ditropan 6. Coronary Artey Disease: Toprol/ASA. I reviewed her vitals since admission and noted some mild tachycardia on 2 occasions. I suggested for now we keep the 50mg dosing, but she intends to only take 25mg and will complete the dose if tachycardia comes back. If after several days she really has only taken 25mg, it would probably be reasonable to change the order to 25mg. 7. Advanced directives: Has HCP. Full code 8. Acute post operative Anemia: Has not been transfused. Continue to follow H/ H on Thursday. 9. Hypomagnesemia: She was lower limit of normal yesterday and started Magnesium oxide supplement. Will recheck Mg Thursday. 10. Est LOS: 05/22/17 05/09/17 10:09
[2017-05-10] MEDS: Omeprazole CAP* 20 MG PO SCH (05:48)
[2017-05-10] MEDS: predniSONE TAB* 1 MG PO SCH (08:12)
[2017-05-10] MEDS: Oxybutynin XL TAB* 5 MG PO SCH (08:12)
[2017-05-10] MEDS: Aspirin EC Low Dose* 81 MG TAB.EC PO SCH (08:12)
[2017-05-10] MEDS: Docusate CAP* 100 MG PO SCH ×2 (08:13→21:06)
[2017-05-10] MEDS: Calcitriol CAP* 0.25 MCG PO SCH (08:13)
[2017-05-10] MEDS: Magnesium Oxide TAB* 400 MG PO SCH (08:13)
[2017-05-10] MEDS: Cholecalciferol TAB* 1000 UNITS PO SCH (08:13)
[2017-05-10] MEDS: Metoprolol Succinate XL TAB* 25 MG PO SCH (08:13)
[2017-05-10] MEDS: Enoxaparin(*) 30 MG/0.3 ML SYR SUBCUT SCH ×2 (08:18→21:07)
--- NOTE | 2017-05-10 10:55 | PN ---
Progress Note Date of Service: 05/10/17 - ] Note: NADIYA ECHEVARRIA was visited. Nursing notes read and reviewed. Nadiya shares today that she had an event monitor removed about a week before her fracture and had not had f/u about it yet. Has now taken 25mg of metoprolol for the last 3 days. A HR of 114 was captured with vitals yesterday afternoon and then upon immediate recheck it was normal at 89. She did not have any symptoms. She did feel dizzy and tired with higher dose metoprolol. No chest pain, shortness of breath or abdominal pain. Also, she tells me in detail her home set up for posterior pericare that includes towels wrapped around the arm of her over the toilet commode that she can back into to wipe and/or make sure she is clean. She has done this for year since she had issues with her shoulders from RA. There are bins for her to put soiled items into on the side. Current Medications: Active Medications Generic Name Dose Route Start Last Admin Trade Name Piotrq PRN Reason Stop Dose Admin Acetaminophen 650 mg 05/05/17 11:52 Tylenol Tab* PO Q6H PRN FEVER/PAIN Aspirin 81 mg 05/06/17 09:00 05/10/17 08:12 Aspirin Ec Low Dose* PO 81 mg DAILY DARRIN Administration Azathioprine 50 mg 05/06/17 09:00 05/08/17 08:19 Imuran Tab(*) PO 50 mg MOWEFR DARRIN Administration Bisacodyl 10 mg 05/05/17 11:52 Dulcolax Supp* [place] DAILY PRN CONSTIPATION Calcitriol 0.25 mcg 05/06/17 09:00 05/10/17 08:13 Rocaltrol Cap* PO 0.25 mcg DAILY DARRIN Administration Cholecalciferol 1,000 units 05/06/17 09:00 05/10/17 08:13 Vitamin D Tab* PO 1,000 units DAILY DARRIN Administration Docusate Sodium 100 mg 05/05/17 21:00 05/10/17 08:13 Colace Cap* PO 100 mg BID DARRIN Administration Enoxaparin Sodium 30 mg 05/05/17 21:00 05/10/17 08:18 Lovenox(*) SUBCUT 30 mg Q12H DARRIN Administration Magnesium Hydroxide 30 ml 05/05/17 12:00 Milk Of Magnesia Liq* PO Q6H PRN CONSTIPATION Magnesium Oxide 400 mg 05/09/17 09:00 05/10/17 08:13 Magox 400 Tab* PO 400 mg DAILY DARRIN Administration Metoprolol Succinate 25 mg 05/11/17 09:00 Toprol Xl Tab* PO DAILY DARRIN Omeprazole 20 mg 05/06/17 07:30 05/10/17 05:48 Prilosec Cap* PO 20 mg DAILY@0730 DARRIN Administration Oxybutynin Chloride 10 mg 05/06/17 09:00 05/10/17 08:12 Ditropan Xl Tab* PO 10 mg DAILY DARRIN Administration Prednisone 2 mg 05/06/17 09:00 05/10/17 08:12 Deltasone Tab* PO 2 mg DAILY DARRIN Administration Senna 2 tab 05/05/17 11:52 05/06/17 20:44 Senokot Tab* PO 2 tab BEDTIME PRN Administration CONSTIPATION Tramadol HCl 50 mg 05/05/17 12:01 05/08/17 01:48 Ultram* PO 50 mg Q6H PRN Administration PAIN - MODERATE Vital Signs: Vital Signs Temp Pulse Resp BP Pulse Ox 97.6 F 83 18 115/56 100 05/10/17 05:53 05/10/17 05:53 05/10/17 05:53 05/10/17 05:53 05/10/17 05:53 05/09/17 05/10/17 16:09 05:53 Temperature 98.1 F 97.6 F Pulse Rate 89 83 Respiratory 20 18 Rate Blood Pressure 103/49 115/56 (mmHg) O2 Sat by Pulse 99 100 Oximetry Exam: GEN: no acute distress. alert and appropriate. LUNGS: clear bilaterally HEART: regular rate and rhythm ABDOMEN: Soft, +BS, non-tender, non-distended EXTREMITIES: No edema. Dressing to left leg intact and clean. Assessment/Plan: 71yo woman with RA and osteoporosis secondary to prednisone s/p left periprosthetic femur fracture. 1. Periprosthetic Left femur fracture: NWB LLE. PT/OT. 2. Rheumatoid Arthritis: Imuran. Prednisone. Hold Orencia, per Dr. Iverson. Port flushed 05/08/17. 3. Osteoporosis: Calcitriol/Vit D 4. DVT Prophylaxis: Lovenox 5. Overactive Bladder: Ditropan 6. Coronary Artey Disease/tachycardia episodes: Toprol/ASA. I called Dr. Lofton who is mail distribution scheme examiner and her primary pouncer. He advised that her event monitor from 04/20/17 was ok. I reviewed her symptoms and vitals with him and he suggested if she does not have sustained tachycardia then keep her on 25mg metoprolol. I reviewed the [facility] notes. She had episodes of sinus tachycardia which they felt was likely due to her acute trauma. EKG on 05/03/17 had HR 112 sinus tachycardia and during stay up to 109, but not sustained. Decreased metoprolol to 25mg qday. 7. Advanced directives: Has HCP. Full code 8. Acute post operative Anemia: Has not been transfused. Continue to follow H/ H on Thursday. 9. Hypomagnesemia: She was lower limit of normal yesterday and started Magnesium oxide supplement. Will recheck Mg Thursday. 10. Est LOS: 05/22/17 05/10/17 11:06
[2017-05-11 05:46] LABS: Hematocrit 24 % (35-47); Hemoglobin 8.1 g/dl (12.0-16.0)
[2017-05-11] MEDS: Omeprazole CAP* 20 MG PO SCH (05:48)
[2017-05-11] MEDS: Calcitriol CAP* 0.25 MCG PO SCH (09:07)
[2017-05-11] MEDS: Metoprolol Succinate XL TAB* 25 MG PO SCH (09:07)
[2017-05-11] MEDS: azaTHIOprine TAB(*) 50 MG TAB PO SCH (09:07)
[2017-05-11] MEDS: Oxybutynin XL TAB* 5 MG PO SCH (09:07)
[2017-05-11] MEDS: Docusate CAP* 100 MG PO SCH ×2 (09:07→20:20)
[2017-05-11] MEDS: Aspirin EC Low Dose* 81 MG TAB.EC PO SCH (09:08)
[2017-05-11] MEDS: Magnesium Oxide TAB* 400 MG PO SCH (09:08)
[2017-05-11] MEDS: Enoxaparin(*) 30 MG/0.3 ML SYR SUBCUT SCH ×2 (09:08→20:20)
[2017-05-11] MEDS: Cholecalciferol TAB* 1000 UNITS PO SCH (09:08)
[2017-05-11] MEDS: predniSONE TAB* 1 MG PO SCH (09:08)
--- NOTE | 2017-05-11 17:01 | PN ---
Progress Note Date of Service: 05/11/17 Note: JOSE MANUEL ECHEVARRIA was visited. Therapy notes read and reviewed. She feels better today with no reports of dizziness. She is trialing a power wheelchair. Current Medications: Active Medications Generic Name Dose Route Start Last Admin Trade Name Freq PRN Reason Stop Dose Admin Acetaminophen 650 mg 05/05/17 11:52 Tylenol Tab* PO Q6H PRN FEVER/PAIN Aspirin 81 mg 05/06/17 09:00 05/11/17 09:08 Aspirin Ec Low Dose* PO 81 mg DAILY DARRIN Administration Azathioprine 50 mg 05/06/17 09:00 05/11/17 09:07 Imuran Tab(*) PO 50 mg MOWEFR DARRIN Administration Bisacodyl 10 mg 05/05/17 11:52 Dulcolax Supp* [place] DAILY PRN CONSTIPATION Calcitriol 0.25 mcg 05/06/17 09:00 05/11/17 09:07 Rocaltrol Cap* PO 0.25 mcg DAILY DARRIN Administration Cholecalciferol 1,000 units 05/06/17 09:00 05/11/17 09:08 Vitamin D Tab* PO 1,000 units DAILY DARRIN Administration Docusate Sodium 100 mg 05/05/17 21:00 05/11/17 09:07 Colace Cap* PO 100 mg BID DARRIN Administration Enoxaparin Sodium 30 mg 05/05/17 21:00 05/11/17 09:08 Lovenox(*) SUBCUT 30 mg Q12H DARRIN Administration Magnesium Hydroxide 30 ml 05/05/17 12:00 Milk Of Magnesia Liq* PO Q6H PRN CONSTIPATION Metoprolol Succinate 25 mg 05/11/17 09:00 05/11/17 09:07 Toprol Xl Tab* PO 25 mg DAILY DARRIN Administration Omeprazole 20 mg 05/06/17 07:30 05/11/17 05:48 Prilosec Cap* PO 20 mg DAILY@0730 DARRIN Administration Oxybutynin Chloride 10 mg 05/06/17 09:00 05/11/17 09:07 Ditropan Xl Tab* PO 10 mg DAILY DARRIN Administration Prednisone 2 mg 05/06/17 09:00 05/11/17 09:08 Deltasone Tab* PO 2 mg DAILY DARRIN Administration Senna 2 tab 05/05/17 11:52 05/06/17 20:44 Senokot Tab* PO 2 tab BEDTIME PRN Administration CONSTIPATION Tramadol HCl 50 mg 05/05/17 12:01 05/08/17 01:48 Ultram* PO 50 mg Q6H PRN Administration PAIN - MODERATE Vital Signs: Vital Signs Temp Pulse Resp BP Pulse Ox 97.9 F 94 16 137/66 100 05/11/17 16:10 05/11/17 16:10 05/11/17 16:10 05/11/17 16:10 05/11/17 16:10 Lab Results: Laboratory Results - last 24 hr 05/11/17 05/11/17 05:24 05:24 Hgb 8.1 L Hct 24 L Magnesium 2.1 Exam: LUNGS: clear bilaterally HEART: regular rate and rhythm ABDOMEN: Soft, +BS, non-tender, non-distended EXTREMITIES: No edema. Dressing to left leg intact and clean. Assessment/Plan: 1. Periprosthetic Left femur fracture: NWB LLE. PT/OT. 2. Rheumatoid Arthritis: Imuran. Prednisone. Hold Orebeverley, per Dr. Iverson. Port flushed 05/08/17. 3. Osteoporosis: Calcitriol/Vit D 4. DVT Prophylaxis: Lovenox 5. Overactive Bladder: Ditropan 6. Coronary Artey Disease/tachycardia episodes: Toprol/ASA. Decreased metoprolol to 25mg qday. 7. Advanced directives: Has HCP. Full code 8. Acute post operative Anemia: Has not been transfused. H/H down slightly today. 9. Hypomagnesemia: resolved. D/C Magnesium oxide supplement. 05/11/17 17:01
[2017-05-12] MEDS: Enoxaparin(*) 30 MG/0.3 ML SYR SUBCUT SCH ×2 (08:13→20:53)
[2017-05-12] MEDS: Calcitriol CAP* 0.25 MCG PO SCH (08:13)
[2017-05-12] MEDS: Metoprolol Succinate XL TAB* 25 MG PO SCH (08:13)
[2017-05-12] MEDS: Oxybutynin XL TAB* 5 MG PO SCH (08:13)
[2017-05-12] MEDS: Docusate CAP* 100 MG PO SCH ×2 (08:14→20:53)
[2017-05-12] MEDS: Cholecalciferol TAB* 1000 UNITS PO SCH (08:14)
[2017-05-12] MEDS: Omeprazole CAP* 20 MG PO SCH (08:14)
[2017-05-12] MEDS: predniSONE TAB* 1 MG PO SCH (08:14)
[2017-05-12] MEDS: Aspirin EC Low Dose* 81 MG TAB.EC PO SCH (08:14)
--- NOTE | 2017-05-12 12:55 | PMRUTEAM ---
PMRU: Goals Current Status: Nursing: Current Status Skin Deviations [left femur] Incision Skin Deviations [Left Medial Bruise Thigh] Skin Deviations [Right Skin Tear Buttocks] Skin Deviations [Left Lower Bruise Leg] Skin Deviations [Left Arm] Bruise Skin Deviation Description [ dressing in place left femur] Skin Deviation Description [ improving Left Medial Thigh] Skin Deviation Description [ improving Right Buttocks] Physical Therapy: Current Status Bed Mobility Assistance Supervision Transfer Moblility Assistance Supervision,Contact Guard Assist Transfer/Bed Mobility Platform Walker Recommended Devices Ambulation Assistance Supervision,Contact Guard Assist Ambulation Assistive Devices Platform Walker Number of Feet Patient 5' Ambulated Wheelchair Propulsion Ability Standby Assistance Wheelchair Distance (ft) 200' using power chair. Objective Comments continue to investigate electric wheelchair- will be able to view possible chair saturday 05/13 at " [employer]" in the basement of [facility] between 9-11:30 am. telephone contact is [phone] Occupational Therapy: Current Status Upper Body Dressing Supervision,Min Assist Lower Body Dressing Mod Assist Bathing Mod Assist Toileting Mod Assist Toilet Transfer Contact Guard Assist Toilet Transfer Progress Mike platform walker, +gait belt, +OTC Shower Transfer Min Assist Shower Transfer Progress Mike platform walker, +gait belt, SPT to/from shower bench Eating Supervision Eating Progress setupA prn Instrumental ADL Pt with new rental power chair delivered and transferred to it during PT session prior to this treatment. Pt able to utilize power w/c for transport from therapy gym to hospital gift shop at slow pace due to being new to operating power w /c. Pt able to navigate into and around corners in the gift shop to get to card rack, did require some assistance reaching for cards off rack due to RA joint changes and length of power w/c within confinement of small space in gift shop. Pt able to complete w/c mobility in power w/c without assistance from this health science writer from [employer] back to her room. Rec Therapy: Current Status Summary of Assessment and RT assessment completed 05/05. Clinical Impression Treatment Goals Patient will engage in recreation and leisure activities while on the unit. Treatment Plan Will follow up with patient regularly for leisure visits and provide recreational activities as appropriate. Social Work: Current Status Discharge Plan return home with home care svs and family support Potential for Family Training pt's family are involved and supportive Anticipated Discharge Home Destination Discharge With VNS and family support Nutrition: Current Status Monitoring full assessment planned 05/16. She is eating adequately on a regular diet. Skin is intact w/ low risk for breakdown. Labs remarkable only for slightly elevated glucose (120s), but also noted to be taking prednisone chronically for RA. No acute nutrition concerns identified at this time. Initial goals as outlined below. Goals: Physical Therapy: Initial Goals Bed Mobility Assistance Independent Transfer Mobility Assistance Independent Transfer/Bed Mobility Pediatric Walker Recommended Devices Ambulation Independent Ambulation Recommended Devices Platform Walker Ambulation Distance 50 Wheelchair Propulsion Ability Independent Wheelchair Distance (ft) 150 Physical Therapy: Updated Goals Transfer/Bed Mobility Platform Walker Recommended Devices Occupational Therapy: Initial Goals Goals to be Completed in (Days 10-14 ) Upper Body Bathing Routine Modified Independent with Lower Body Bathing Routine Modified Independent with Upper Body Dressing Routine Modified Independent with Lower Body Dressing Routine Modified Independent with Toilet Hygeine and Clothing Modified Independent with Management Routine Toilet Transfer Routine Modified Independent with Step-In Shower Transfer Modified Independent with Routine Functional Transfers for ADL Modified Independent with Grooming Routine Modified Independent with Feeding Routine Independent Light Housekeeping Tasks Minimal Contact Assist Nutrition: Goals Intervention Goals 1. adequate po intake to maintain lean body mass and hydration; no clinical s/sx dehydration 2. bowel pattern will be regulated; no c/o diarrhea (or constipation) 3. maintain adequate glycemic control without s/sx hyperglycemia Social Work: Goals Discharge Plan return home with home care svs and family support Potential for Family Training pt's family are involved and supportive Anticipated Discharge Home Destination Discharge With VNS and family support Care Plan: Care Plan ADL's - Improve/Maintain Start: 05/06/17 14:49 Freq: DAILY Status: Active Target: Protocol: Activity Type Activity Date Activity User E-Sign Co-Sign Detail Recorded Client Recorded Date Recorded By Document 05/11/17 10:28 [id number] 05/11/17 10:28 [id number] 05/11/17 10:28 PMRU Outcome: ADL's/ADL Transfers Orders/Interventions Occupational Therapy Evaluation & Treatment Communication Tool in Patient Room Device Yes Address Deficits Secondary To: left periprosthetic femur fx s/p ORIF Patient to receive OT 5x/wk for 60-120 Therex min/day Self Care Management Group Therapy UE/LE ADL's with Assist Yes: Zeke ADL Transfers with Assist Yes: Zeke Toileting: Transfers,Clothing Management Yes: Zeke ,Hygeine w/Assist Light Kitchen/Laundry w/Assist Yes: Tiffany Progression Toward Outcome/Goals Progressing Outcome/Goals Met Pt participated well in ADL treatment session, continues to be limited 2* dynamic standing balance with UE dependence on platform walker in standing to maintain NWB, as well as pt unable to manage clips on LLE brace or place brace in place without totalA. DVT Prophylaxis- Improve/Maintain Start: 05/05/17 22:36 Freq: DAILY Status: Active Target: Protocol: Activity Type Activity Date Activity User E-Sign Co-Sign Detail Recorded Client Recorded Date Recorded By Document 05/12/17 01:16 [id number] 05/12/17 01:20 [id number] 05/12/17 01:16 PMRU Outcome: DVT Prophylaxis Outcome/Goals Remains Free of DVT TEDS Stockings on Every AM, Off at HS Progression Toward Outcome/Goals Progressing Discharge Planning - Improve/Maintain Start: 05/05/17 22:36 Freq: DAILY Status: Active Target: Protocol: Activity Type Activity Date Activity User E-Sign Co-Sign Detail Recorded Client Recorded Date Recorded By Document 05/10/17 21:50 [id number] 05/10/17 21:51 [id number] 05/10/17 21:50 PMRU Outcome: Discharge Planning Update Patient Family No Outcome/Goals Demonstrates Understanding of Discharge Plan Progression Toward Outcome/Goals Progressing Education-Improve/Maintain Start: 05/05/17 22:36 Freq: DAILY Status: Active Target: Protocol: Activity Type Activity Date Activity User E-Sign Co-Sign Detail Recorded Client Recorded Date Recorded By Document 05/12/17 01:16 [id number] 05/12/17 01:20 [id number] 05/12/17 01:16 PMRU Outcome: Education Outcome/Goals Demonstrate/ Verbalize Understanding of Written Discharge Instructions Encourage Questions Progression Toward Outcome/Goals Progressing /GI-Improve/Maintain Start: 05/05/17 22:36 Freq: DAILY Status: Active Target: Protocol: Activity Type Activity Date Activity User E-Sign Co-Sign Detail Recorded Client Recorded Date Recorded By Document 05/12/17 01:16 [id number] 05/12/17 01:20 [id number] 05/12/17 01:16 PMRU Outcome: Genitourinary/ Gastrointestinal Genitourinary- Outcome/Goals Maintain/ Achieve Urinary Continence Remain Free of Hospital- Acquired UTI Gastrointestinal-Outcome/Goals Maintain/ Achieve Bowel Regularity in Accordance with Pt's Baseline Prevent Constipation Progression Toward Outcome/Goals - Progressing Progression Toward Outcome/Goals - GI Progressing Mobility- Improve/Maintain Start: 05/05/17 18:11 Freq: DAILY Status: Active Target: Protocol: Activity Type Activity Date Activity User E-Sign Co-Sign Detail Recorded Client Recorded Date Recorded By Document 05/11/17 12:17 [id number] 05/11/17 12:17 [id number] 05/11/17 12:17 PMRU Outcome: Mobility Physical Therapy Evaluation and Yes Treatment Activity OOB with Assistance Yes NWB Yes: LLE Patient to be seen 5x/wk for 60-120 min/ Therex day for: Mobility Training Gait Training W/C Mobility Balance Outcome/Goals Maintain/ Achieve Baseline Mobility Status Improve Mobility Status Demonstrates Proper Use of Assistive Devices Free from Complications of Immobility Progression Toward Outcome/Goals Progressing Bed Mobility Yes: independent. Transfers Yes: independent with RW with B platform attachements. Gait x ft Yes: independent 15' W/C Mobility x ft Yes: independent 150 ' Pain/Comfort- Improve/Maintain Start: 05/05/17 22:36 Freq: DAILY Status: Active Target: Protocol: Activity Type Activity Date Activity User E-Sign Co-Sign Detail Recorded Client Recorded Date Recorded By Document 05/12/17 01:16 [id number] 05/12/17 01:20 [id number] 05/12/17 01:16 PMRU Outcome: Pain/Comfort Outcome/Goals Demonstrates Knowledge and Use of Available Comfort Measures Maintain Comfort Level Allowing Patient to Fully Participate in Rehab Progression Toward Outcome/Goals Progressing Outcome/Goals Met Comment pt denies pain Safety- Improve/Maintain Start: 05/05/17 22:36 Freq: DAILY Status: Active Target: Protocol: Activity Type Activity Date Activity User E-Sign Co-Sign Detail Recorded Client Recorded Date Recorded By Document 05/12/17 01:16 [id number] 05/12/17 01:20 [id number] 05/12/17 01:16 PMRU Outcome: Safety Outcome/Goals Remain Free of Injury or Harm Prevent Falls/ Injury Progression Toward Outcome/Goals Progressing Skin- Improve/Maintain Start: 02/27/18 22:36 Freq: DAILY Status: Active Target: Protocol: Activity Type Activity Date Activity User E-Sign Co-Sign Detail Recorded Client Recorded Date Recorded By Document 05/12/17 01:16 [id number] 05/12/17 01:20 [id number] 05/12/17 01:16 PMRU Outcome: Skin Skin Risk Level Medium Skin Orders Dressing Change Turn/Position q2hr While in Bed Outcome/Goals Maintain/ Improve Skin Intergrity Surgical Incisions Healing Progression Toward Outcome/Goals Progressing Medicine Note: Length of Stay: 10 days Anticipated Discharge Destination: Home Tentative Discharge Date: 05/22/17 Discharged to: Home
--- NOTE | 2017-05-12 16:37 | PN ---
Progress Note Date of Service: 05/12/17 Note: JOSE MANUEL ECHEVARRIA was visited. Therapy notes read and reviewed. She was discussed in interdisciplinary team rounds. She is having trouble with her knee immobilizer. She cannot fasten straps. Will try to contact her ortho Current Medications: Active Medications Generic Name Dose Route Start Last Admin Trade Name Freq PRN Reason Stop Dose Admin Acetaminophen 650 mg 05/05/17 11:52 Tylenol Tab* PO Q6H PRN FEVER/PAIN Aspirin 81 mg 05/06/17 09:00 05/12/17 08:14 Aspirin Ec Low Dose* PO 81 mg DAILY DARRIN Administration Azathioprine 50 mg 05/06/17 09:00 05/11/17 09:07 Imuran Tab(*) PO 50 mg MOWEFR DARRIN Administration Bisacodyl 10 mg 05/05/17 11:52 Dulcolax Supp* [place] DAILY PRN CONSTIPATION Calcitriol 0.25 mcg 05/06/17 09:00 05/12/17 08:13 Rocaltrol Cap* PO 0.25 mcg DAILY DARRIN Administration Cholecalciferol 1,000 units 05/06/17 09:00 05/12/17 08:14 Vitamin D Tab* PO 1,000 units DAILY DARRIN Administration Docusate Sodium 100 mg 05/05/17 21:00 05/12/17 08:14 Colace Cap* PO 100 mg BID DARRIN Administration Enoxaparin Sodium 30 mg 05/05/17 21:00 05/12/17 08:13 Lovenox(*) SUBCUT 30 mg Q12H DARRIN Administration Magnesium Hydroxide 30 ml 05/05/17 12:00 Milk Of Magnesia Liq* PO Q6H PRN CONSTIPATION Metoprolol Succinate 25 mg 05/11/17 09:00 05/12/17 08:13 Toprol Xl Tab* PO 25 mg DAILY DARRIN Administration Omeprazole 20 mg 05/06/17 07:30 05/12/17 08:14 Prilosec Cap* PO 20 mg DAILY@0730 DARRIN Administration Oxybutynin Chloride 10 mg 05/06/17 09:00 05/12/17 08:13 Ditropan Xl Tab* PO 10 mg DAILY DARRIN Administration Prednisone 2 mg 05/06/17 09:00 05/12/17 08:14 Deltasone Tab* PO 2 mg DAILY DARRIN Administration Senna 2 tab 05/05/17 11:52 05/06/17 20:44 Senokot Tab* PO 2 tab BEDTIME PRN Administration CONSTIPATION Tramadol HCl 50 mg 05/05/17 12:01 05/08/17 01:48 Ultram* PO 50 mg Q6H PRN Administration PAIN - MODERATE Vital Signs: Vital Signs Temp Pulse Resp BP Pulse Ox 98.1 F 85 18 112/50 99 05/12/17 16:32 05/12/17 16:32 05/12/17 16:32 05/12/17 16:32 05/12/17 16:32 Exam: LUNGS: clear bilaterally HEART: regular rate and rhythm ABDOMEN: Soft, +BS, non-tender, non-distended EXTREMITIES: No edema. Dressing to left leg intact and clean. Assessment/Plan: 1. Periprosthetic Left femur fracture: NWB LLE. PT/OT. 2. Rheumatoid Arthritis: Imuran. Prednisone. Hold Orencia, per Dr. Iverson. Port flushed 05/08/17. 3. Osteoporosis: Calcitriol/Vit D 4. DVT Prophylaxis: Lovenox 5. Overactive Bladder: Ditropan 6. Coronary Artey Disease/tachycardia episodes: Toprol/ASA. Decreased metoprolol to 25mg qday. 7. Advanced directives: Has HCP. Full code 8. Acute post operative Anemia: Has not been transfused. H/H down slightly yesterday. 05/12/17 16:38
[2017-05-13 05:59] LABS: ABS Basophils 0.1 10^3/ul (0-0.2); ABS Eosinophils 0.4 10^3/ul (0-0.6); ABS Lymphocytes 1.9 10^3/ul (1.0-4.8); ABS Monocytes 0.9 10^3/ul (0-0.8); ABS Nucleated RBC 0 10^3/ul; Eosinophil % 4.6 % (0-6); Hematocrit 27 % (35-47); Lymphocyte % 20.3 % (25-47); Mean Corpuscular HGB Conc 33 g/dl (31-36); Mean Corpuscular Hemoglobin 29 pg (27-31); Mean Corpuscular Volume 86 fL (80-97); Mean Platelet Volume 9 um3 (7.4-10.4); Nucleated Red Blood Cells % 0; Platelet Count 453 10^3/ul (150-450); Red Blood Count 3.16 10^6/ul (4.0-5.4); Red Cell Distribution Width 17 % (10.5-15); White Blood Count 9.3 10^3/ul (3.5-10.8)
[2017-05-13 06:27] LABS: EGFR Non-African American 82.5 (>60)
[2017-05-13] MEDS: azaTHIOprine TAB(*) 50 MG TAB PO SCH (07:43)
[2017-05-13] MEDS: Omeprazole CAP* 20 MG PO SCH (07:44)
[2017-05-13] MEDS: predniSONE TAB* 1 MG PO SCH (07:44)
[2017-05-13] MEDS: Aspirin EC Low Dose* 81 MG TAB.EC PO SCH (07:44)
[2017-05-13] MEDS: Oxybutynin XL TAB* 5 MG PO SCH (07:44)
[2017-05-13] MEDS: Calcitriol CAP* 0.25 MCG PO SCH (07:45)
[2017-05-13] MEDS: Cholecalciferol TAB* 1000 UNITS PO SCH (07:45)
[2017-05-13] MEDS: Metoprolol Succinate XL TAB* 25 MG PO SCH (07:45)
[2017-05-13] MEDS: Docusate CAP* 100 MG PO SCH ×2 (07:45→20:26)
[2017-05-13] MEDS: Enoxaparin(*) 30 MG/0.3 ML SYR SUBCUT SCH ×2 (07:46→20:26)
--- NOTE | 2017-05-13 22:42 | PN ---
Progress Note Date of Service: 05/13/17 Note: JOSE MANUEL ECHEVARRIA was visited. Therapy notes read and reviewed. Will try to find out if brace is necessary. Otherwise doing okay with no complaints. Current Medications: Active Medications Generic Name Dose Route Start Last Admin Trade Name Freq PRN Reason Stop Dose Admin Acetaminophen 650 mg 05/05/17 11:52 Tylenol Tab* PO Q6H PRN FEVER/PAIN Aspirin 81 mg 05/06/17 09:00 05/13/17 07:44 Aspirin Ec Low Dose* PO 81 mg DAILY DARRIN Administration Azathioprine 50 mg 05/06/17 09:00 05/13/17 07:43 Imuran Tab(*) PO 50 mg MOWEFR DARRIN Administration Bisacodyl 10 mg 05/05/17 11:52 Dulcolax Supp* [place] DAILY PRN CONSTIPATION Calcitriol 0.25 mcg 05/06/17 09:00 05/13/17 07:45 Rocaltrol Cap* PO 0.25 mcg DAILY DARRIN Administration Cholecalciferol 1,000 units 05/06/17 09:00 05/13/17 07:45 Vitamin D Tab* PO 1,000 units DAILY DARRIN Administration Docusate Sodium 100 mg 05/05/17 21:00 05/13/17 20:26 Colace Cap* PO 100 mg BID DARRIN Administration Enoxaparin Sodium 30 mg 05/05/17 21:00 05/13/17 20:26 Lovenox(*) SUBCUT 30 mg Q12H DARRIN Administration Magnesium Hydroxide 30 ml 05/05/17 12:00 Milk Of Magnesia Liq* PO Q6H PRN CONSTIPATION Metoprolol Succinate 25 mg 05/11/17 09:00 05/13/17 07:45 Toprol Xl Tab* PO 25 mg DAILY DARRIN Administration Omeprazole 20 mg 05/06/17 07:30 05/13/17 07:44 Prilosec Cap* PO 20 mg DAILY@0730 DARRIN Administration Oxybutynin Chloride 10 mg 05/06/17 09:00 05/13/17 07:44 Ditropan Xl Tab* PO 10 mg DAILY DARRIN Administration Prednisone 2 mg 05/06/17 09:00 05/13/17 07:44 Deltasone Tab* PO 2 mg DAILY DARRIN Administration Senna 2 tab 05/05/17 11:52 05/06/17 20:44 Senokot Tab* PO 2 tab BEDTIME PRN Administration CONSTIPATION Tramadol HCl 50 mg 05/05/17 12:01 05/08/17 01:48 Ultram* PO 50 mg Q6H PRN Administration PAIN - MODERATE Vital Signs: Vital Signs Temp Pulse Resp BP Pulse Ox 98.2 F 82 18 96/50 100 05/13/17 15:56 05/13/17 15:56 05/13/17 18:38 05/13/17 15:56 05/13/17 19:07 Lab Results: Laboratory Results - last 24 hr 05/13/17 05/13/17 05:40 05:40 WBC 9.3 RBC 3.16 L Hgb 9.0 L Hct 27 L MCV 86 MCH 29 MCHC 33 RDW 17 H Plt Count 453 H D MPV 9 Neut % (Auto) 64.3 Lymph % (Auto) 20.3 L Wake % (Auto) 9.7 H Eos % (Auto) 4.6 Baso % (Auto) 1.1 Absolute Neuts (auto) 6.0 Absolute Lymphs (auto) 1.9 Absolute Monos (auto) 0.9 H Absolute Eos (auto) 0.4 Absolute Basos (auto) 0.1 Absolute Nucleated RBC 0 Nucleated RBC % 0 Sodium 136 Potassium 4.3 Chloride 103 Carbon Dioxide 28 Anion Gap 5 BUN 15 Creatinine 0.70 Est GFR ( Amer) 106.1 Est GFR (Non-Af Amer) 82.5 BUN/Creatinine Ratio 21.4 H Glucose 98 Calcium 8.9 Total Bilirubin 0.40 AST 17 ALT 9 Alkaline Phosphatase 109 H Total Protein 6.3 L Albumin 3.4 Globulin 2.9 Albumin/Globulin Ratio 1.2 Exam: LUNGS: clear bilaterally HEART: regular rate and rhythm ABDOMEN: Soft, +BS, non-tender, non-distended EXTREMITIES: No edema. Dressing to left leg intact and clean. Assessment/Plan: 1. Periprosthetic Left femur fracture: NWB LLE. PT/OT. 2. Rheumatoid Arthritis: Imuran. Prednisone. Hold Orencia, per Dr. Iverson. Port flushed 05/08/17. 3. Osteoporosis: Calcitriol/Vit D 4. DVT Prophylaxis: Lovenox 5. Overactive Bladder: Ditropan 6. Coronary Artey Disease/tachycardia episodes: Toprol/ASA. Decreased metoprolol to 25mg qday. 7. Advanced directives: Has HCP. Full code 8. Acute post operative Anemia: Has not been transfused. H/H sophia. 05/13/17 22:42
[2017-05-14] MEDS: traMADol TAB* 50 MG PO PRN (00:27)
[2017-05-14] MEDS: Omeprazole CAP* 20 MG PO SCH (06:10)
[2017-05-14] MEDS: Calcitriol CAP* 0.25 MCG PO SCH (08:00)
[2017-05-14] MEDS: predniSONE TAB* 1 MG PO SCH (08:00)
[2017-05-14] MEDS: Aspirin EC Low Dose* 81 MG TAB.EC PO SCH (08:00)
[2017-05-14] MEDS: Cholecalciferol TAB* 1000 UNITS PO SCH (08:01)
[2017-05-14] MEDS: Oxybutynin XL TAB* 5 MG PO SCH (08:01)
[2017-05-14] MEDS: Metoprolol Succinate XL TAB* 25 MG PO SCH (08:01)
[2017-05-14] MEDS: Docusate CAP* 100 MG PO SCH ×2 (08:01→20:20)
[2017-05-14] MEDS: Enoxaparin(*) 30 MG/0.3 ML SYR SUBCUT SCH ×2 (08:02→20:24)
[2017-05-14] MEDS ORDERED: predniSONE TAB* 1 MG ONE (08:04)
--- NOTE | 2017-05-14 18:08 | PN ---
Progress Note Date of Service: 05/14/17 Note: JOSE MANUEL ECHEVARRIA was visited. Therapy notes read and reviewed. She is feeling good about where she is. Will call Dr. Blackman tomorrow about her brace. Current Medications: Active Medications Generic Name Dose Route Start Last Admin Trade Name Freq PRN Reason Stop Dose Admin Acetaminophen 650 mg 05/05/17 11:52 Tylenol Tab* PO Q6H PRN FEVER/PAIN Aspirin 81 mg 05/06/17 09:00 05/14/17 08:00 Aspirin Ec Low Dose* PO 81 mg DAILY DARRIN Administration Azathioprine 50 mg 05/15/17 09:00 Imuran Tab(*) PO MoWeFr@0900 DARRIN Bisacodyl 10 mg 05/05/17 11:52 Dulcolax Supp* [place] DAILY PRN CONSTIPATION Calcitriol 0.25 mcg 05/06/17 09:00 05/14/17 08:00 Rocaltrol Cap* PO 0.25 mcg DAILY DARRIN Administration Cholecalciferol 1,000 units 05/06/17 09:00 05/14/17 08:01 Vitamin D Tab* PO 1,000 units DAILY DARRIN Administration Docusate Sodium 100 mg 05/05/17 21:00 05/14/17 08:01 Colace Cap* PO 100 mg BID DARRIN Administration Enoxaparin Sodium 30 mg 05/05/17 21:00 05/14/17 08:02 Lovenox(*) SUBCUT 30 mg Q12H DARRIN Administration Magnesium Hydroxide 30 ml 05/05/17 12:00 Milk Of Magnesia Liq* PO Q6H PRN CONSTIPATION Metoprolol Succinate 25 mg 05/11/17 09:00 05/14/17 08:01 Toprol Xl Tab* PO 25 mg DAILY DARRIN Administration Omeprazole 20 mg 05/06/17 07:30 05/14/17 06:10 Prilosec Cap* PO 20 mg DAILY@0730 DARRIN Administration Oxybutynin Chloride 10 mg 05/06/17 09:00 05/14/17 08:01 Ditropan Xl Tab* PO 10 mg DAILY DARRIN Administration Prednisone 2 mg 05/06/17 09:00 05/14/17 08:00 Deltasone Tab* PO 2 mg DAILY DARRIN Administration Senna 2 tab 05/05/17 11:52 05/06/17 20:44 Senokot Tab* PO 2 tab BEDTIME PRN Administration CONSTIPATION Tramadol HCl 50 mg 05/05/17 12:01 05/14/17 00:27 Ultram* PO 50 mg Q6H PRN Administration PAIN - MODERATE Vital Signs: Vital Signs Temp Pulse Resp BP Pulse Ox 97.9 F 95 18 144/59 98 05/14/17 15:29 05/14/17 15:29 05/14/17 17:50 05/14/17 15:29 05/14/17 17:50 Exam: LUNGS: clear bilaterally HEART: regular rate and rhythm ABDOMEN: Soft, +BS, non-tender, non-distended EXTREMITIES: No edema. Dressing to left leg intact and clean. Assessment/Plan: 1. Periprosthetic Left femur fracture: NWB LLE. PT/OT. 2. Rheumatoid Arthritis: Imuran. Prednisone. Hold Orencia, per Dr. Iverson. Port flushed 05/08/17. 3. Osteoporosis: Calcitriol/Vit D 4. DVT Prophylaxis: Lovenox 5. Overactive Bladder: Ditropan 6. Coronary Artey Disease/tachycardia episodes: Toprol/ASA. Decreased metoprolol to 25mg qday. 7. Advanced directives: Has HCP. Full code 8. Acute post operative Anemia: H/H ok. 05/14/17 18:09
[2017-05-15] MEDS: Omeprazole CAP* 20 MG PO SCH (05:51)
[2017-05-15] MEDS: predniSONE TAB* 1 MG PO SCH (08:03)
[2017-05-15] MEDS: Aspirin EC Low Dose* 81 MG TAB.EC PO SCH (08:03)
[2017-05-15] MEDS: Oxybutynin XL TAB* 5 MG PO SCH (08:03)
[2017-05-15] MEDS: Enoxaparin(*) 30 MG/0.3 ML SYR SUBCUT SCH ×2 (08:03→20:10)
[2017-05-15] MEDS: Calcitriol CAP* 0.25 MCG PO SCH (08:03)
[2017-05-15] MEDS: Metoprolol Succinate XL TAB* 25 MG PO SCH (08:03)
[2017-05-15] MEDS: azaTHIOprine TAB(*) 50 MG TAB PO SCH (08:03)
[2017-05-15] MEDS: Docusate CAP* 100 MG PO SCH ×2 (08:04→20:10)
[2017-05-15] MEDS: Cholecalciferol TAB* 1000 UNITS PO SCH (08:04)
--- NOTE | 2017-05-15 17:39 | PN ---
Progress Note Date of Service: 05/15/17 Note: JOSE MANUEL Almonte JAREDNADIRA was visited. Therapy notes read and reviewed. I have a call in to Dr. Blackman re: leg brace. Otherwise she has no complaints. Current Medications: Active Medications Generic Name Dose Route Start Last Admin Trade Name Freq PRN Reason Stop Dose Admin Acetaminophen 650 mg 05/05/17 11:52 Tylenol Tab* PO Q6H PRN FEVER/PAIN Aspirin 81 mg 05/06/17 09:00 05/15/17 08:03 Aspirin Ec Low Dose* PO 81 mg DAILY DARRIN Administration Azathioprine 50 mg 05/15/17 09:00 05/15/17 08:03 Imuran Tab(*) PO 50 mg MoWeFr@0900 DARRNI Administration Bisacodyl 10 mg 05/05/17 11:52 Dulcolax Supp* [place] DAILY PRN CONSTIPATION Calcitriol 0.25 mcg 05/06/17 09:00 05/15/17 08:03 Rocaltrol Cap* PO 0.25 mcg DAILY DARRIN Administration Cholecalciferol 1,000 units 05/06/17 09:00 05/15/17 08:04 Vitamin D Tab* PO 1,000 units DAILY DARRIN Administration Docusate Sodium 100 mg 05/05/17 21:00 05/15/17 08:04 Colace Cap* PO 100 mg BID DARRIN Administration Enoxaparin Sodium 30 mg 05/05/17 21:00 05/15/17 08:03 Lovenox(*) SUBCUT 30 mg Q12H DARRIN Administration Magnesium Hydroxide 30 ml 05/05/17 12:00 Milk Of Magnesia Liq* PO Q6H PRN CONSTIPATION Metoprolol Succinate 25 mg 05/11/17 09:00 05/15/17 08:03 Toprol Xl Tab* PO 25 mg DAILY DARRIN Administration Omeprazole 20 mg 05/06/17 07:30 05/15/17 05:51 Prilosec Cap* PO 20 mg DAILY@0730 DARRIN Administration Oxybutynin Chloride 10 mg 05/06/17 09:00 05/15/17 08:03 Ditropan Xl Tab* PO 10 mg DAILY DARRIN Administration Prednisone 2 mg 05/06/17 09:00 05/15/17 08:03 Deltasone Tab* PO 2 mg DAILY DARRIN Administration Senna 2 tab 05/05/17 11:52 05/06/17 20:44 Senokot Tab* PO 2 tab BEDTIME PRN Administration CONSTIPATION Tramadol HCl 50 mg 05/05/17 12:01 05/14/17 00:27 Ultram* PO 50 mg Q6H PRN Administration PAIN - MODERATE Vital Signs: Vital Signs Temp Pulse Resp BP Pulse Ox 97.6 F 86 18 119/69 100 05/15/17 05:45 05/15/17 05:45 05/15/17 08:00 05/15/17 05:45 05/15/17 08:00 Exam: LUNGS: clear bilaterally HEART: regular rate and rhythm ABDOMEN: Soft, +BS, non-tender, non-distended EXTREMITIES: No edema. Dressing to left leg intact and clean. Assessment/Plan: 1. Periprosthetic Left femur fracture: NWB LLE. PT/OT. Rajat out 05/19 2. Rheumatoid Arthritis: Imuran. Prednisone. Hold Orencia, per Dr. Iverson. Port flushed 05/08/17. 3. Osteoporosis: Calcitriol/Vit D 4. DVT Prophylaxis: Lovenox 5. Overactive Bladder: Ditropan 6. Coronary Artey Disease/tachycardia episodes: Toprol/ASA. Decreased metoprolol to 25mg qday. 7. Advanced directives: Has HCP. Full code 8. Acute post operative Anemia: H/H ok. 05/15/17 17:39
[2017-05-15] MEDS: traMADol TAB* 50 MG PO PRN (22:46)
[2017-05-16] MEDS: Omeprazole CAP* 20 MG PO SCH (08:15)
[2017-05-16] MEDS: predniSONE TAB* 1 MG PO SCH (09:37)
[2017-05-16] MEDS: Calcitriol CAP* 0.25 MCG PO SCH (09:37)
[2017-05-16] MEDS: Aspirin EC Low Dose* 81 MG TAB.EC PO SCH (09:37)
[2017-05-16] MEDS: Oxybutynin XL TAB* 5 MG PO SCH (09:37)
[2017-05-16] MEDS: Docusate CAP* 100 MG PO SCH ×2 (09:37→20:45)
[2017-05-16] MEDS: Metoprolol Succinate XL TAB* 25 MG PO SCH (09:37)
[2017-05-16] MEDS: Cholecalciferol TAB* 1000 UNITS PO SCH (09:37)
[2017-05-16] MEDS: Enoxaparin(*) 30 MG/0.3 ML SYR SUBCUT SCH ×2 (09:38→20:45)
--- NOTE | 2017-05-16 16:07 | PN ---
Progress Note Date of Service: 05/16/17 Note: JOSE MANUEL ECHEVARRIA was visited. Nursing notes read and reviewed. Her new power wheelchair arrived. Back slightly low, but will work. Current Medications: Active Medications Generic Name Dose Route Start Last Admin Trade Name Freq PRN Reason Stop Dose Admin Acetaminophen 650 mg 05/05/17 11:52 Tylenol Tab* PO Q6H PRN FEVER/PAIN Aspirin 81 mg 05/06/17 09:00 05/16/17 09:37 Aspirin Ec Low Dose* PO 81 mg DAILY DARRIN Administration Azathioprine 50 mg 05/15/17 09:00 05/15/17 08:03 Imuran Tab(*) PO 50 mg MoWeFr@0900 DARRIN Administration Bisacodyl 10 mg 05/05/17 11:52 Dulcolax Supp* [place] DAILY PRN CONSTIPATION Calcitriol 0.25 mcg 05/06/17 09:00 05/16/17 09:37 Rocaltrol Cap* PO 0.25 mcg DAILY DARRIN Administration Cholecalciferol 1,000 units 05/06/17 09:00 05/16/17 09:37 Vitamin D Tab* PO 1,000 units DAILY DARRIN Administration Docusate Sodium 100 mg 05/05/17 21:00 05/16/17 09:37 Colace Cap* PO 100 mg BID DARRIN Administration Enoxaparin Sodium 30 mg 05/05/17 21:00 05/16/17 09:38 Lovenox(*) SUBCUT 30 mg Q12H DARRIN Administration Magnesium Hydroxide 30 ml 05/05/17 12:00 Milk Of Magnesia Liq* PO Q6H PRN CONSTIPATION Metoprolol Succinate 25 mg 05/11/17 09:00 05/16/17 09:37 Toprol Xl Tab* PO 25 mg DAILY DARRIN Administration Omeprazole 20 mg 05/06/17 07:30 05/16/17 08:15 Prilosec Cap* PO 20 mg DAILY@0730 DARRIN Administration Oxybutynin Chloride 10 mg 05/06/17 09:00 05/16/17 09:37 Ditropan Xl Tab* PO 10 mg DAILY DARRIN Administration Prednisone 2 mg 05/06/17 09:00 05/16/17 09:37 Deltasone Tab* PO 2 mg DAILY DARRIN Administration Senna 2 tab 05/05/17 11:52 05/06/17 20:44 Senokot Tab* PO 2 tab BEDTIME PRN Administration CONSTIPATION Tramadol HCl 50 mg 05/05/17 12:01 05/15/17 22:46 Ultram* PO 50 mg Q6H PRN Administration PAIN - MODERATE Vital Signs: Vital Signs Temp Pulse Resp BP Pulse Ox 98.7 F 80 24 128/60 100 05/16/17 15:45 05/16/17 15:45 05/16/17 15:45 05/16/17 15:45 05/16/17 15:45 Exam: LUNGS: clear bilaterally HEART: regular rate and rhythm ABDOMEN: Soft, +BS, non-tender, non-distended EXTREMITIES: No edema. Dressing to left leg intact and clean. Assessment/Plan: 1. Periprosthetic Left femur fracture: NWB LLE. PT/OT. [place] out 05/19 2. Rheumatoid Arthritis: Imuran. Prednisone. Hold Orencia, per Dr. Iverson. Port flushed 05/08/17. 3. Osteoporosis: Calcitriol/Vit D 4. DVT Prophylaxis: Lovenox 5. Overactive Bladder: Ditropan 6. Coronary Artey Disease/tachycardia episodes: Toprol/ASA. Decreased metoprolol to 25mg qday. 7. Advanced directives: Has HCP. Full code 8. Acute post operative Anemia: H/H ok. 05/16/17 16:07
[2017-05-17] MEDS: traMADol TAB* 50 MG PO PRN (03:46)
[2017-05-17] MEDS: Omeprazole CAP* 20 MG PO SCH (07:42)
[2017-05-17] MEDS: Aspirin EC Low Dose* 81 MG TAB.EC PO SCH (09:43)
[2017-05-17] MEDS: Docusate CAP* 100 MG PO SCH ×2 (09:43→22:14)
[2017-05-17] MEDS: Calcitriol CAP* 0.25 MCG PO SCH (09:43)
[2017-05-17] MEDS: Metoprolol Succinate XL TAB* 25 MG PO SCH (09:43)
[2017-05-17] MEDS: Cholecalciferol TAB* 1000 UNITS PO SCH (09:43)
[2017-05-17] MEDS: predniSONE TAB* 1 MG PO SCH (09:43)
[2017-05-17] MEDS: Oxybutynin XL TAB* 5 MG PO SCH (09:43)
[2017-05-17] MEDS: Enoxaparin(*) 30 MG/0.3 ML SYR SUBCUT SCH ×2 (09:45→22:14)
--- NOTE | 2017-05-17 15:48 | PN ---
Progress Note Date of Service: 05/17/17 Note: JOSE MANUEL ECHEVARRIA was visited. Nursing notes read and reviewed. She says she had a little pain in the area of her gall bladder. She has had this happen before, it usually settles down. Current Medications: Active Medications Generic Name Dose Route Start Last Admin Trade Name Freq PRN Reason Stop Dose Admin Acetaminophen 650 mg 05/05/17 11:52 Tylenol Tab* PO Q6H PRN FEVER/PAIN Aspirin 81 mg 05/06/17 09:00 05/17/17 09:43 Aspirin Ec Low Dose* PO 81 mg DAILY DARRIN Administration Azathioprine 50 mg 05/15/17 09:00 05/15/17 08:03 Imuran Tab(*) PO 50 mg MoWeFr@0900 DARRIN Administration Bisacodyl 10 mg 05/05/17 11:52 Dulcolax Supp* [place] DAILY PRN CONSTIPATION Calcitriol 0.25 mcg 05/06/17 09:00 05/17/17 09:43 Rocaltrol Cap* PO 0.25 mcg DAILY DARRIN Administration Cholecalciferol 1,000 units 05/06/17 09:00 05/17/17 09:43 Vitamin D Tab* PO 1,000 units DAILY DARRIN Administration Docusate Sodium 100 mg 05/05/17 21:00 05/17/17 09:43 Colace Cap* PO 100 mg BID DARRIN Administration Enoxaparin Sodium 30 mg 05/05/17 21:00 05/17/17 09:45 Lovenox(*) SUBCUT 30 mg Q12H DARRIN Administration Magnesium Hydroxide 30 ml 05/05/17 12:00 Milk Of Magnesia Liq* PO Q6H PRN CONSTIPATION Metoprolol Succinate 25 mg 05/11/17 09:00 05/17/17 09:43 Toprol Xl Tab* PO 25 mg DAILY DARRIN Administration Omeprazole 20 mg 05/06/17 07:30 05/17/17 07:42 Prilosec Cap* PO 20 mg DAILY@0730 DARRIN Administration Oxybutynin Chloride 10 mg 05/06/17 09:00 05/17/17 09:43 Ditropan Xl Tab* PO 10 mg DAILY DARRIN Administration Prednisone 2 mg 05/06/17 09:00 05/17/17 09:43 Deltasone Tab* PO 2 mg DAILY DARRIN Administration Senna 2 tab 05/05/17 11:52 05/06/17 20:44 Senokot Tab* PO 2 tab BEDTIME PRN Administration CONSTIPATION Tramadol HCl 50 mg 05/05/17 12:01 05/17/17 03:46 Ultram* PO 50 mg Q6H PRN Administration PAIN - MODERATE Vital Signs: Vital Signs Temp Pulse Resp BP Pulse Ox 99.9 F 85 24 105/64 99 05/17/17 15:36 05/17/17 15:36 05/17/17 15:36 05/17/17 15:36 05/17/17 15:36 Exam: LUNGS: clear bilaterally HEART: regular rate and rhythm ABDOMEN: Soft, +BS, non-tender, non-distended EXTREMITIES: No edema. Dressing to left leg intact and clean. Assessment/Plan: 1. Periprosthetic Left femur fracture: NWB LLE. PT/OT. [place] out 05/19 2. Rheumatoid Arthritis: Imuran. Prednisone. Hold Hans, per Dr. Iverson. Port flushed 05/08/17. 3. Osteoporosis: Calcitriol/Vit D 4. DVT Prophylaxis: Lovenox 5. Overactive Bladder: Ditropan 6. Coronary Artey Disease/tachycardia episodes: Toprol/ASA. Decreased metoprolol to 25mg qday. 7. Advanced directives: Has HCP. Full code 8. Acute post operative Anemia: H/H ok. 9. RUQ pain: follow. Hold on GB sono, it has been done in the past. 05/17/17 15:50
[2017-05-17] MEDS: Acetaminophen TAB* 325 MG PO PRN (23:22)
[2017-05-18] MEDS: Enoxaparin(*) 30 MG/0.3 ML SYR SUBCUT SCH ×2 (08:12→20:24)
[2017-05-18] MEDS: Docusate CAP* 100 MG PO SCH ×2 (08:12→20:23)
[2017-05-18] MEDS: Omeprazole CAP* 20 MG PO SCH (08:12)
[2017-05-18] MEDS: Cholecalciferol TAB* 1000 UNITS PO SCH (08:12)
[2017-05-18] MEDS: Aspirin EC Low Dose* 81 MG TAB.EC PO SCH (08:12)
[2017-05-18] MEDS: azaTHIOprine TAB(*) 50 MG TAB PO SCH (08:13)
[2017-05-18] MEDS: predniSONE TAB* 1 MG PO SCH (08:13)
[2017-05-18] MEDS: Metoprolol Succinate XL TAB* 25 MG PO SCH (08:13)
[2017-05-18] MEDS: Oxybutynin XL TAB* 5 MG PO SCH (08:13)
[2017-05-18] MEDS: Calcitriol CAP* 0.25 MCG PO SCH (08:13)
[2017-05-18] MEDS ORDERED: traMADol TAB* 50 MG PO PRN (15:50)
--- NOTE | 2017-05-18 16:09 | PN ---
Progress Note Date of Service: 05/18/17 Note: JOSE MANUEL ECHEVARRIA was visited. Therapy notes read and reviewed. I spoke with Dr. Blackman's office. They said she can take the brace off. She is moving pretty well in her electric wheelchair. Current Medications: Active Medications Generic Name Dose Route Start Last Admin Trade Name Freq PRN Reason Stop Dose Admin Acetaminophen 650 mg 05/05/17 11:52 05/17/17 23:22 Tylenol Tab* PO 650 mg Q6H PRN Administration FEVER/PAIN Aspirin 81 mg 05/06/17 09:00 05/18/17 08:12 Aspirin Ec Low Dose* PO 81 mg DAILY DARRIN Administration Azathioprine 50 mg 05/15/17 09:00 05/18/17 08:13 Imuran Tab(*) PO 50 mg MoWeFr@0900 DARRIN Administration Bisacodyl 10 mg 05/05/17 11:52 Dulcolax Supp* [place] DAILY PRN CONSTIPATION Calcitriol 0.25 mcg 05/06/17 09:00 05/18/17 08:13 Rocaltrol Cap* PO 0.25 mcg DAILY DARRIN Administration Cholecalciferol 1,000 units 05/06/17 09:00 05/18/17 08:12 Vitamin D Tab* PO 1,000 units DAILY DARRIN Administration Docusate Sodium 100 mg 05/05/17 21:00 05/18/17 08:12 Colace Cap* PO 100 mg BID DARRIN Administration Enoxaparin Sodium 30 mg 05/05/17 21:00 05/18/17 08:12 Lovenox(*) SUBCUT 30 mg Q12H DARRIN Administration Magnesium Hydroxide 30 ml 05/05/17 12:00 Milk Of Magnesia Liq* PO Q6H PRN CONSTIPATION Metoprolol Succinate 25 mg 05/11/17 09:00 05/18/17 08:13 Toprol Xl Tab* PO 25 mg DAILY DARRIN Administration Omeprazole 20 mg 05/06/17 07:30 05/18/17 08:12 Prilosec Cap* PO 20 mg DAILY@0730 DARRIN Administration Oxybutynin Chloride 10 mg 05/06/17 09:00 05/18/17 08:13 Ditropan Xl Tab* PO 10 mg DAILY DARRIN Administration Prednisone 2 mg 05/06/17 09:00 05/18/17 08:13 Deltasone Tab* PO 2 mg DAILY DARRIN Administration Senna 2 tab 05/05/17 11:52 05/06/17 20:44 Senokot Tab* PO 2 tab BEDTIME PRN Administration CONSTIPATION Tramadol HCl 50 mg 05/18/17 15:50 Ultram* PO Q6H PRN PAIN - MODERATE Vital Signs: Vital Signs Temp Pulse Resp BP Pulse Ox 98.3 F 83 16 113/71 100 05/18/17 15:36 05/18/17 15:36 05/18/17 15:36 05/18/17 15:36 05/18/17 15:36 Exam: LUNGS: clear bilaterally HEART: regular rate and rhythm ABDOMEN: Soft, +BS, non-tender, non-distended EXTREMITIES: No edema. Dressing to left leg intact and clean. Assessment/Plan: 1. Periprosthetic Left femur fracture: NWB LLE. PT/OT. [place] out 05/19 2. Rheumatoid Arthritis: Imuran. Prednisone. Hold Orencia, per Dr. Iverson. Port flushed 05/08/17. 3. Osteoporosis: Calcitriol/Vit D 4. DVT Prophylaxis: Lovenox 5. Overactive Bladder: Ditropan 6. Coronary Artey Disease/tachycardia episodes: Toprol/ASA. Decreased metoprolol to 25mg qday. 7. Advanced directives: Has HCP. Full code 8. Acute post operative Anemia: H/H ok. 05/18/17 16:10
[2017-05-18] MEDS: Acetaminophen TAB* 325 MG PO PRN (21:59)
[2017-05-19] MEDS: Omeprazole CAP* 20 MG PO SCH (06:14)
[2017-05-19] MEDS: Calcitriol CAP* 0.25 MCG PO SCH (07:46)
[2017-05-19] MEDS: Cholecalciferol TAB* 1000 UNITS PO SCH (07:46)
[2017-05-19] MEDS: Metoprolol Succinate XL TAB* 25 MG PO SCH (07:46)
[2017-05-19] MEDS: Oxybutynin XL TAB* 5 MG PO SCH (07:46)
[2017-05-19] MEDS: Aspirin EC Low Dose* 81 MG TAB.EC PO SCH (07:46)
[2017-05-19] MEDS: predniSONE TAB* 1 MG PO SCH (07:46)
[2017-05-19] MEDS: Docusate CAP* 100 MG PO SCH ×2 (07:46→20:03)
[2017-05-19] MEDS: Enoxaparin(*) 30 MG/0.3 ML SYR SUBCUT SCH ×2 (07:56→20:04)
--- NOTE | 2017-05-19 12:33 | PMRUTEAM ---
PMRU: Goals Current Status: Nursing: Current Status Skin Deviations [L hip/thigh] Bruise Skin Deviations [left femur] Incision Skin Deviations [Left Medial Incision Thigh] Skin Deviations [Right Other Buttocks] Skin Deviations [Left Lower Incision Leg] Skin Deviations [Left Arm] Bruise Skin Deviation Description [ drsg in place left femur] Skin Deviation Description [ improving Left Medial Thigh] Skin Deviation Description [ sl reddened Right Buttocks] Skin Deviation Description [ dressing CDI Left Lower Leg] Drain Type [left femur] None Physical Therapy: Current Status Bed Mobility Assistance Independent Transfer Moblility Assistance Supervision,Contact Guard Assist Transfer/Bed Mobility Platform Walker Recommended Devices Ambulation Assistance Contact Guard Assist Ambulation Assistive Devices Platform Walker Number of Feet Patient 10' x 2 Ambulated Wheelchair Propulsion Ability Standby Assistance Wheelchair Distance (ft) 600 using a power w/c. Objective Comments patient continues to improve overall controll and mobility with W/C. pateint is improving tight quarter mobility, but continues to need cuing to avoid contact with objects. gross mobility is greatly improved and patient is getting more confdent at higher speeds. Occupational Therapy: Current Status Upper Body Dressing Min Assist Lower Body Dressing Supervision,Min Assist Lower Body Dressing Progress for slip on shoe only Bathing Supervision Toileting Mod Assist Toilet Transfer Contact Guard Assist,Min Assist Toilet Transfer Progress Mike platform walker, +gait belt, +OTC Shower Transfer Min Assist Shower Transfer Progress Mike platform walker, +gait belt, SPT to/from shower bench Eating Supervision Eating Progress setupA prn Instrumental ADL Pt with new rental power chair delivered and transferred to it during PT session prior to this treatment. Pt able to utilize power w/c for transport from therapy gym to hospital [employer] shop at slow pace due to being new to operating power w /c. Pt able to navigate into and around corners in the gift shop to get to card rack, did require some assistance reaching for cards off rack due to RA joint changes and length of power w/c within confinement of small space in [employer] shop. Pt able to complete w/c mobility in power w/c without assistance from this leader writer from [employer] shop back to her room. Rec Therapy: Current Status Summary of Assessment and RT assessment completed 05/05 and pt. is aware of Clinical Impression RT services. Pt. is very social and engaged during leisure visits. Treatment Goals Patient will engage in recreation and leisure activities while on the unit. Treatment Plan Will follow up with patient regularly for leisure visits and provide recreational activities as appropriate. Social Work: Current Status Discharge Plan return home with home care svs and family support Potential for Family Training pt's family are involved and supportive Anticipated Discharge Home Destination Discharge With VNS and family support Nutrition: Current Status Monitoring po intake variable w/regular diet, although does enjoy a night time snack, so being offered. Skin is intact w/low risk for breakdown. Labs remarkable only for slightly elevated glucose ( 120s), but also noted to be taking prednisone chronically for RA. She states that previous constipation is now resolved, although no BM x 3 days. Colace given this a.m. Goals: Physical Therapy: Initial Goals Bed Mobility Assistance Independent Transfer Mobility Assistance Independent Transfer/Bed Mobility Pediatric Walker Recommended Devices Ambulation Independent Ambulation Recommended Devices Platform Walker Ambulation Distance 50 Wheelchair Propulsion Ability Independent Wheelchair Distance (ft) 150 Physical Therapy: Updated Goals Transfer/Bed Mobility Platform Walker Recommended Devices Occupational Therapy: Initial Goals Goals to be Completed in (Days 10-14 ) Upper Body Bathing Routine Modified Independent with Lower Body Bathing Routine Modified Independent with Upper Body Dressing Routine Modified Independent with Lower Body Dressing Routine Modified Independent with Toilet Hygeine and Clothing Modified Independent with Management Routine Toilet Transfer Routine Modified Independent with Step-In Shower Transfer Modified Independent with Routine Functional Transfers for ADL Modified Independent with Grooming Routine Modified Independent with Feeding Routine Independent Light Housekeeping Tasks Minimal Contact Assist Nutrition: Goals Intervention Goals 1. adequate po intake to maintain lean body mass and hydration; no clinical s/sx dehydration 2. bowel pattern will be regulated; no c/o diarrhea (or constipation) 3. maintain adequate glycemic control without s/sx hyperglycemia Social Work: Goals Discharge Plan return home with home care svs and family support Potential for Family Training pt's family are involved and supportive Anticipated Discharge Home Destination Discharge With VNS and family support Care Plan: Care Plan ADL's - Improve/Maintain Start: 05/06/17 14:49 Freq: DAILY Status: Active Target: Protocol: Activity Type Activity Date Activity User E-Sign Co-Sign Detail Recorded Client Recorded Date Recorded By Document 05/18/17 16:08 [id number] 05/18/17 16:08 [id number] 05/18/17 16:08 PMRU Outcome: ADL's/ADL Transfers Orders/Interventions Occupational Therapy Evaluation & Treatment Communication Tool in Patient Room Device Yes Address Deficits Secondary To: left periprosthetic femur fx s/p ORIF Patient to receive OT 5x/wk for 60-120 Therex min/day Self Care Management Group Therapy UE/LE ADL's with Assist Yes: Zeke ADL Transfers with Assist Yes: Zeke Toileting: Transfers,Clothing Management Yes: Zeke ,Hygeine w/Assist Light Kitchen/Laundry w/Assist Yes: Tiffany Progression Toward Outcome/Goals Progressing Outcome/Goals Met Pt participated well in treatment session, continues to require assistance with toileting and concerns over transporting walker for transfers at home discussed with pt. DVT Prophylaxis- Improve/Maintain Start: 05/05/17 22:36 Freq: DAILY Status: Active Target: Protocol: Activity Type Activity Date Activity User E-Sign Co-Sign Detail Recorded Client Recorded Date Recorded By Document 05/19/17 00:22 [id number] 05/19/17 00:23 [id number] 05/19/17 00:22 PMRU Outcome: DVT Prophylaxis Outcome/Goals Remains Free of DVT Complies with DVT Prophylaxis /Treatment TEDS Stockings on Every AM, Off at HS Progression Toward Outcome/Goals Progressing Discharge Planning - Improve/Maintain Start: 05/05/17 22:36 Freq: DAILY Status: Active Target: Protocol: Activity Type Activity Date Activity User E-Sign Co-Sign Detail Recorded Client Recorded Date Recorded By Document 05/19/17 00:22 [id number] 05/19/17 00:23 [id number] 05/19/17 00:22 PMRU Outcome: Discharge Planning Identify Patient Needs yes Update Patient Family No Outcome/Goals Demonstrates Understanding of Discharge Plan Progression Toward Outcome/Goals Progressing Education-Improve/Maintain Start: 05/05/17 22:36 Freq: DAILY Status: Active Target: Protocol: Activity Type Activity Date Activity User E-Sign Co-Sign Detail Recorded Client Recorded Date Recorded By Document 05/19/17 00:22 [id number] 05/19/17 00:23 [id number] 05/19/17 00:22 PMRU Outcome: Education Outcome/Goals Demonstrate/ Verbalize Understanding of Written Discharge Instructions Demonstrates Skills Encourage Questions Progression Toward Outcome/Goals Progressing /GI-Improve/Maintain Start: 05/05/17 22:36 Freq: DAILY Status: Active Target: Protocol: Activity Type Activity Date Activity User E-Sign Co-Sign Detail Recorded Client Recorded Date Recorded By Document 05/19/17 00:22 [id number] 05/19/17 00:23 [id number] 05/19/17 00:22 PMRU Outcome: Genitourinary/ Gastrointestinal Genitourinary- Outcome/Goals Maintain/ Achieve Urinary Continence Remain Free of Hospital- Acquired UTI Gastrointestinal-Outcome/Goals Maintain/ Achieve Bowel Regularity in Accordance with Pt's Baseline Prevent Constipation Progression Toward Outcome/Goals - Progressing Progression Toward Outcome/Goals - GI Progressing Mobility- Improve/Maintain Start: 05/05/17 18:11 Freq: DAILY Status: Active Target: Protocol: Activity Type Activity Date Activity User E-Sign Co-Sign Detail Recorded Client Recorded Date Recorded By Document 05/13/17 10:20 [id number] 05/13/17 10:20 [id number] 05/13/17 10:20 PMRU Outcome: Mobility Physical Therapy Evaluation and Yes Treatment Activity OOB with Assistance Yes NWB Yes: LLE Patient to be seen 5x/wk for 60-120 min/ Therex day for: Mobility Training Gait Training W/C Mobility Balance Outcome/Goals Maintain/ Achieve Baseline Mobility Status Improve Mobility Status Demonstrates Proper Use of Assistive Devices Free from Complications of Immobility Progression Toward Outcome/Goals Progressing Bed Mobility Yes: independent. Transfers Yes: independent with RW with B platform attachements. Gait x ft Yes: independent 15' W/C Mobility x ft Yes: independent 150 ' Pain/Comfort- Improve/Maintain Start: 05/05/17 22:36 Freq: DAILY Status: Complete Target: Protocol: Activity Type Activity Date Activity User E-Sign Co-Sign Detail Recorded Client Recorded Date Recorded By Document 05/13/17 19:09 [id number] 05/13/17 19:10 [id number] 05/13/17 19:09 PMRU Outcome: Pain/Comfort Outcome/Goals Demonstrates Knowledge and Use of Available Comfort Measures Maintain Comfort Level Allowing Patient to Fully Participate in Rehab Outcome/Goals Met Demonstrates Knowledge and Use of Available Comfort Measures Maintain Comfort Level Allowing Patient to Fully Participate in Rehab Safety- Improve/Maintain Start: 05/05/17 22:36 Freq: DAILY Status: Active Target: Protocol: Activity Type Activity Date Activity User E-Sign Co-Sign Detail Recorded Client Recorded Date Recorded By Document 05/19/17 00:22 [id number] 05/19/17 00:23 [id number] 05/19/17 00:22 PMRU Outcome: Safety Outcome/Goals Remain Free of Injury or Harm Prevent Falls/ Injury Progression Toward Outcome/Goals Progressing Skin- Improve/Maintain Start: 05/05/17 22:36 Freq: DAILY Status: Active Target: Protocol: Activity Type Activity Date Activity User E-Sign Co-Sign Detail Recorded Client Recorded Date Recorded By Document 05/19/17 00:22 [id number] 05/19/17 00:23 [id number] 05/19/17 00:22 PMRU Outcome: Skin Skin Risk Level Medium Skin Orders Dressing Change Turn/Position q2hr While in Bed Outcome/Goals Maintain/ Improve Skin Intergrity Surgical Incisions Healing Progression Toward Outcome/Goals Progressing Medicine Note: Length of Stay: 3 days Anticipated Discharge Destination: Home Tentative Discharge Date: 05/22/17 Discharged to: Home
--- NOTE | 2017-05-19 16:35 | PN ---
Progress Note Date of Service: 05/19/17 Note: JOSE MANUEL ECHEVARRIA was visited. Therapy notes read and reviewed. She was discussed in interdisciplinary team rounds. Some concerns about her ability to toilet at home. Her lesvia were removed without incident. Steri-strips applied. Current Medications: Active Medications Generic Name Dose Route Start Last Admin Trade Name Freq PRN Reason Stop Dose Admin Acetaminophen 650 mg 05/05/17 11:52 05/18/17 21:59 Tylenol Tab* PO 325 mg Q6H PRN Administration FEVER/PAIN Aspirin 81 mg 05/06/17 09:00 05/19/17 07:46 Aspirin Ec Low Dose* PO 81 mg DAILY DARRIN Administration Azathioprine 50 mg 05/15/17 09:00 05/18/17 08:13 Imuran Tab(*) PO 50 mg MoWeFr@0900 DARRIN Administration Bisacodyl 10 mg 05/05/17 11:52 Dulcolax Supp* [place] DAILY PRN CONSTIPATION Calcitriol 0.25 mcg 05/06/17 09:00 05/19/17 07:46 Rocaltrol Cap* PO 0.25 mcg DAILY DARRIN Administration Cholecalciferol 1,000 units 05/06/17 09:00 05/19/17 07:46 Vitamin D Tab* PO 1,000 units DAILY DARRIN Administration Docusate Sodium 100 mg 05/05/17 21:00 05/19/17 07:46 Colace Cap* PO 100 mg BID DARRIN Administration Enoxaparin Sodium 30 mg 05/05/17 21:00 05/19/17 07:56 Lovenox(*) SUBCUT 30 mg Q12H DARRIN Administration Magnesium Hydroxide 30 ml 05/05/17 12:00 Milk Of Magnesia Liq* PO Q6H PRN CONSTIPATION Metoprolol Succinate 25 mg 05/11/17 09:00 05/19/17 07:46 Toprol Xl Tab* PO 25 mg DAILY DARRIN Administration Omeprazole 20 mg 05/06/17 07:30 05/19/17 06:14 Prilosec Cap* PO 20 mg DAILY@0730 DARRIN Administration Oxybutynin Chloride 10 mg 05/06/17 09:00 05/19/17 07:46 Ditropan Xl Tab* PO 10 mg DAILY DARRIN Administration Prednisone 2 mg 05/06/17 09:00 05/19/17 07:46 Deltasone Tab* PO 2 mg DAILY DARRIN Administration Senna 2 tab 05/05/17 11:52 05/06/17 20:44 Senokot Tab* PO 2 tab BEDTIME PRN Administration CONSTIPATION Tramadol HCl 50 mg 05/18/17 15:50 Ultram* PO Q6H PRN PAIN - MODERATE Vital Signs: Vital Signs Temp Pulse Resp BP Pulse Ox 98.4 F 83 16 141/66 100 05/19/17 15:41 05/19/17 15:41 05/19/17 15:41 05/19/17 15:41 05/19/17 15:41 Exam: LUNGS: clear bilaterally HEART: regular rate and rhythm ABDOMEN: Soft, +BS, non-tender, non-distended EXTREMITIES: No edema. Suture line healed Assessment/Plan: 1. Periprosthetic Left femur fracture: NWB LLE. PT/OT. [place] out today 2. Rheumatoid Arthritis: Imuran. Prednisone. Hold Orencia, per Dr. Iverson. Port flushed 05/08/17. 3. Osteoporosis: Calcitriol/Vit D 4. DVT Prophylaxis: Lovenox 5. Overactive Bladder: Ditropan 6. Coronary Artey Disease/tachycardia episodes: Toprol/ASA. Decreased metoprolol to 25mg qday. 7. Advanced directives: Has HCP. Full code 8. Acute post operative Anemia: H/H ok. 05/19/17 16:35
[2017-05-19] MEDS: Acetaminophen TAB* 325 MG PO PRN (20:04)
[2017-05-20] MEDS: Omeprazole CAP* 20 MG PO SCH (05:59)
[2017-05-20 07:11] LABS: ABS Basophils 0.1 10^3/ul (0-0.2); ABS Eosinophils 0.3 10^3/ul (0-0.6); ABS Lymphocytes 1.7 10^3/ul (1.0-4.8); ABS Monocytes 0.8 10^3/ul (0-0.8); ABS Neutrophils 3.2 10^3/ul (1.5-7.7); ABS Nucleated RBC 0 10^3/ul; Eosinophil % 4.8 % (0-6); Hematocrit 30 % (35-47); Hemoglobin 9.3 g/dl (12.0-16.0); Mean Corpuscular HGB Conc 31 g/dl (31-36); Mean Corpuscular Hemoglobin 28 pg (27-31); Mean Corpuscular Volume 89 fL (80-97); Mean Platelet Volume 9 um3 (7.4-10.4); Nucleated Red Blood Cells % 0.2; Platelet Count 326 10^3/ul (150-450); Red Blood Count 3.38 10^6/ul (4.0-5.4); Red Cell Distribution Width 17 % (10.5-15); White Blood Count 5.9 10^3/ul (3.5-10.8)
[2017-05-20 07:34] LABS: EGFR Non-African American 85.3 (>60)
[2017-05-20] MEDS: Metoprolol Succinate XL TAB* 25 MG PO SCH (10:11)
[2017-05-20] MEDS: Oxybutynin XL TAB* 5 MG PO SCH (10:11)
[2017-05-20] MEDS: Cholecalciferol TAB* 1000 UNITS PO SCH (10:12)
[2017-05-20] MEDS: Docusate CAP* 100 MG PO SCH ×2 (10:12→19:03)
[2017-05-20] MEDS: Calcitriol CAP* 0.25 MCG PO SCH (10:12)
[2017-05-20] MEDS: Aspirin EC Low Dose* 81 MG TAB.EC PO SCH (10:12)
[2017-05-20] MEDS: predniSONE TAB* 1 MG PO SCH (10:12)
[2017-05-20] MEDS: azaTHIOprine TAB(*) 50 MG TAB PO SCH (10:13)
[2017-05-20] MEDS: Enoxaparin(*) 30 MG/0.3 ML SYR SUBCUT SCH ×2 (10:13→19:03)
--- NOTE | 2017-05-20 20:40 | PN ---
Progress Note Date of Service: 05/20/17 Note: JOSE MANUEL ECHEVARRIA was visited. Therapy notes read and reviewed. Getting ready for discharge on Thursday. She has no complaints Current Medications: Active Medications Generic Name Dose Route Start Last Admin Trade Name Freq PRN Reason Stop Dose Admin Acetaminophen 650 mg 05/05/17 11:52 05/19/17 20:04 Tylenol Tab* PO 325 mg Q6H PRN Administration FEVER/PAIN Aspirin 81 mg 05/06/17 09:00 05/20/17 10:12 Aspirin Ec Low Dose* PO 81 mg DAILY DARRIN Administration Azathioprine 50 mg 05/15/17 09:00 05/20/17 10:13 Imuran Tab(*) PO 50 mg MoWeFr@0900 DARRIN Administration Bisacodyl 10 mg 05/05/17 11:52 Dulcolax Supp* NE DAILY PRN CONSTIPATION Calcitriol 0.25 mcg 05/06/17 09:00 05/20/17 10:12 Rocaltrol Cap* PO 0.25 mcg DAILY DARRIN Administration Cholecalciferol 1,000 units 05/06/17 09:00 05/20/17 10:12 Vitamin D Tab* PO 1,000 units DAILY DARRIN Administration Docusate Sodium 100 mg 05/05/17 21:00 05/20/17 19:03 Colace Cap* PO 100 mg BID DARRIN Administration Enoxaparin Sodium 30 mg 05/05/17 21:00 05/20/17 19:03 Lovenox(*) SUBCUT 30 mg Q12H DARRIN Administration Magnesium Hydroxide 30 ml 05/05/17 12:00 Milk Of Magnesia Liq* PO Q6H PRN CONSTIPATION Metoprolol Succinate 25 mg 05/11/17 09:00 05/20/17 10:11 Toprol Xl Tab* PO 25 mg DAILY DARRIN Administration Omeprazole 20 mg 05/06/17 07:30 05/20/17 05:59 Prilosec Cap* PO 20 mg DAILY@0730 DARRIN Administration Oxybutynin Chloride 10 mg 05/06/17 09:00 05/20/17 10:11 Ditropan Xl Tab* PO 10 mg DAILY DARRIN Administration Prednisone 2 mg 05/06/17 09:00 05/20/17 10:12 Deltasone Tab* PO 2 mg DAILY DARRIN Administration Senna 2 tab 05/05/17 11:52 05/06/17 20:44 Senokot Tab* PO 2 tab BEDTIME PRN Administration CONSTIPATION Tramadol HCl 50 mg 05/18/17 15:50 Ultram* PO Q6H PRN PAIN - MODERATE Vital Signs: Vital Signs Temp Pulse Resp BP Pulse Ox 98.3 F 85 16 113/65 100 05/20/17 15:36 05/20/17 15:36 05/20/17 16:09 05/20/17 15:36 05/20/17 16:09 Lab Results: Laboratory Results - last 24 hr 05/20/17 05/20/17 05/20/17 06:30 06:30 11:07 WBC 5.9 RBC 3.38 L Hgb 9.3 L Hct 30 L MCV 89 MCH 28 MCHC 31 RDW 17 H Plt Count 326 MPV 9 Neut % (Auto) 53.0 Lymph % (Auto) 28.0 [place] % (Auto) 12.7 H Eos % (Auto) 4.8 Baso % (Auto) 1.5 Absolute Neuts (auto) 3.2 Absolute Lymphs (auto) 1.7 Absolute Monos (auto) 0.8 Absolute Eos (auto) 0.3 Absolute Basos (auto) 0.1 Absolute Nucleated RBC 0 Nucleated RBC % 0.2 Sodium 132 L Potassium TNP 4.1 Chloride 104 Carbon Dioxide 19 L Anion Gap 9 BUN 18 Creatinine 0.68 Est GFR ( Amer) 109.7 Est GFR (Non-Af Amer) 85.3 BUN/Creatinine Ratio 26.5 H Glucose 89 Calcium 8.4 L Total Bilirubin 0.10 L AST TNP 16 ALT 11 Alkaline Phosphatase 117 H Total Protein 6.2 L Albumin 2.8 L Globulin 3.4 Albumin/Globulin Ratio 0.8 L Exam: LUNGS: clear bilaterally HEART: regular rate and rhythm ABDOMEN: Soft, +BS, non-tender, non-distended EXTREMITIES: No edema. Suture line healed Assessment/Plan: 1. Periprosthetic Left femur fracture: NWB LLE. PT/OT. [place] out today 2. Rheumatoid Arthritis: Imuran. Prednisone. Hold Orencia, per Dr. Iverson. Port flushed 05/08/17. 3. Osteoporosis: Calcitriol/Vit D 4. DVT Prophylaxis: Lovenox 5. Overactive Bladder: Ditropan 6. Coronary Artey Disease/tachycardia episodes: Toprol/ASA. Decreased metoprolol to 25mg qday. 7. Advanced directives: Has HCP. Full code 8. Acute post operative Anemia: H/H .06/05. 05/20/17 20:41
[2017-05-20] MEDS: Acetaminophen TAB* 325 MG PO PRN (21:33)
[2017-05-21] MEDS: Omeprazole CAP* 20 MG PO SCH (05:42)
[2017-05-21] MEDS: Oxybutynin XL TAB* 5 MG PO SCH (08:04)
[2017-05-21] MEDS: Metoprolol Succinate XL TAB* 25 MG PO SCH (08:04)
[2017-05-21] MEDS: predniSONE TAB* 1 MG PO SCH (08:04)
[2017-05-21] MEDS: Aspirin EC Low Dose* 81 MG TAB.EC PO SCH (08:04)
[2017-05-21] MEDS: Calcitriol CAP* 0.25 MCG PO SCH (08:04)
[2017-05-21] MEDS: Docusate CAP* 100 MG PO SCH ×2 (08:04→21:11)
[2017-05-21] MEDS: Cholecalciferol TAB* 1000 UNITS PO SCH (08:05)
[2017-05-21] MEDS: Enoxaparin(*) 30 MG/0.3 ML SYR SUBCUT SCH ×2 (08:06→21:10)
--- NOTE | 2017-05-21 20:08 | PN ---
Progress Note Date of Service: 05/21/17 Note: JOSE MANUEL ECHEVARRIA was visited. Therapy notes read and reviewed. She is set for discharge in am. She has an electric wheelchair, she will get a tub transfer bench. Current Medications: Active Medications Generic Name Dose Route Start Last Admin Trade Name Freq PRN Reason Stop Dose Admin Acetaminophen 650 mg 05/05/17 11:52 05/20/17 21:33 Tylenol Tab* PO 325 mg Q6H PRN Administration FEVER/PAIN Aspirin 81 mg 05/06/17 09:00 05/21/17 08:04 Aspirin Ec Low Dose* PO 81 mg DAILY DARRIN Administration Azathioprine 50 mg 05/15/17 09:00 05/20/17 10:13 Imuran Tab(*) PO 50 mg MoWeFr@0900 DARRIN Administration Bisacodyl 10 mg 05/05/17 11:52 Dulcolax Supp* [place] DAILY PRN CONSTIPATION Calcitriol 0.25 mcg 05/06/17 09:00 05/21/17 08:04 Rocaltrol Cap* PO 0.25 mcg DAILY DARRIN Administration Cholecalciferol 1,000 units 05/06/17 09:00 05/21/17 08:05 Vitamin D Tab* PO 1,000 units DAILY DARRIN Administration Docusate Sodium 100 mg 05/05/17 21:00 05/21/17 08:04 Colace Cap* PO 100 mg BID DARRIN Administration Enoxaparin Sodium 30 mg 05/05/17 21:00 05/21/17 08:06 Lovenox(*) SUBCUT 30 mg Q12H DARRIN Administration Magnesium Hydroxide 30 ml 05/05/17 12:00 Milk Of Magnesia Liq* PO Q6H PRN CONSTIPATION Metoprolol Succinate 25 mg 05/11/17 09:00 05/21/17 08:04 Toprol Xl Tab* PO 25 mg DAILY DARRIN Administration Omeprazole 20 mg 05/06/17 07:30 05/21/17 05:42 Prilosec Cap* PO 20 mg DAILY@0730 DARRIN Administration Oxybutynin Chloride 10 mg 05/06/17 09:00 05/21/17 08:04 Ditropan Xl Tab* PO 10 mg DAILY DARRIN Administration Prednisone 2 mg 05/06/17 09:00 05/21/17 08:04 Deltasone Tab* PO 2 mg DAILY DARRIN Administration Senna 2 tab 05/05/17 11:52 05/06/17 20:44 Senokot Tab* PO 2 tab BEDTIME PRN Administration CONSTIPATION Tramadol HCl 50 mg 05/18/17 15:50 Ultram* PO Q6H PRN PAIN - MODERATE Vital Signs: Vital Signs Temp Pulse Resp BP Pulse Ox 98.3 F 87 16 134/74 99 05/21/17 17:33 05/21/17 17:33 05/21/17 18:43 05/21/17 17:33 05/21/17 13:18 Exam: LUNGS: clear bilaterally HEART: regular rate and rhythm ABDOMEN: Soft, +BS, non-tender, non-distended EXTREMITIES: No edema. Suture line healed Assessment/Plan: 1. Periprosthetic Left femur fracture: NWB LLE. PT/OT. [place] out today 2. Rheumatoid Arthritis: Imuran. Prednisone. Hold Orencia, per Dr. Iverson. Port flushed 05/08/17. 3. Osteoporosis: Calcitriol/Vit D 4. DVT Prophylaxis: Lovenox 5. Overactive Bladder: Ditropan 6. Coronary Artey Disease/tachycardia episodes: Toprol/ASA. 7. Advanced directives: Has HCP. Full code 8. Acute post operative Anemia: H/H 9.3/30. 05/21/17 20:08
[2017-05-21] MEDS: Acetaminophen TAB* 325 MG PO PRN (21:12)
[2017-05-22] MEDS: Omeprazole CAP* 20 MG PO SCH (06:04)
[2017-05-22 06:35] VITALS: BP 123/69
[2017-05-22] MEDS: Aspirin EC Low Dose* 81 MG TAB.EC PO SCH (09:53)
[2017-05-22] MEDS: azaTHIOprine TAB(*) 50 MG TAB PO SCH (09:53)
[2017-05-22] MEDS: Cholecalciferol TAB* 1000 UNITS PO SCH (09:54)
[2017-05-22] MEDS: Docusate CAP* 100 MG PO SCH (09:54)
[2017-05-22] MEDS: Calcitriol CAP* 0.25 MCG PO SCH (09:54)
[2017-05-22] MEDS: Oxybutynin XL TAB* 5 MG PO SCH (09:55)
[2017-05-22] MEDS: Metoprolol Succinate XL TAB* 25 MG PO SCH (09:55)
[2017-05-22] MEDS: predniSONE TAB* 1 MG PO SCH (09:56)
[2017-05-22] MEDS: Enoxaparin(*) 30 MG/0.3 ML SYR SUBCUT SCH (09:58)
--- NOTE | 2017-05-22 10:40 | PN ---
Progress Note Date of Service: 05/22/17 Note: JOSE MANUEL ECHEVARRIA was visited. Nursing and therapy notes read and reviewed. Patient will have family with her 24hr/day to assist with toileting as needed. She is eager to go home. Seen by PT this morning and cleared for discharge. No chest pain, shortness of breath or abdominal pain. Current Medications: Active Medications Generic Name Dose Route Start Last Admin Trade Name Freq PRN Reason Stop Dose Admin Acetaminophen 650 mg 05/05/17 11:52 05/21/17 21:12 Tylenol Tab* PO 650 mg Q6H PRN Administration FEVER/PAIN Aspirin 81 mg 05/06/17 09:00 05/22/17 09:53 Aspirin Ec Low Dose* PO 81 mg DAILY DARRIN Administration Azathioprine 50 mg 05/15/17 09:00 05/22/17 09:53 Imuran Tab(*) PO 50 mg MoWeFr@0900 DARRIN Administration Bisacodyl 10 mg 05/05/17 11:52 Dulcolax Supp* [place] DAILY PRN CONSTIPATION Calcitriol 0.25 mcg 05/06/17 09:00 05/22/17 09:54 Rocaltrol Cap* PO 0.25 mcg DAILY DARRIN Administration Cholecalciferol 1,000 units 05/06/17 09:00 05/22/17 09:54 Vitamin D Tab* PO 1,000 units DAILY DARRIN Administration Docusate Sodium 100 mg 05/05/17 21:00 05/22/17 09:54 Colace Cap* PO 100 mg BID DARRIN Administration Enoxaparin Sodium 30 mg 05/05/17 21:00 05/22/17 09:58 Lovenox(*) SUBCUT 30 mg Q12H DARRIN Administration Magnesium Hydroxide 30 ml 05/05/17 12:00 Milk Of Magnesia Liq* PO Q6H PRN CONSTIPATION Metoprolol Succinate 25 mg 05/11/17 09:00 05/22/17 09:55 Toprol Xl Tab* PO 25 mg DAILY DARRIN Administration Omeprazole 20 mg 05/06/17 07:30 05/22/17 06:04 Prilosec Cap* PO 20 mg DAILY@0730 DARRIN Administration Oxybutynin Chloride 10 mg 05/06/17 09:00 05/22/17 09:55 Ditropan Xl Tab* PO 10 mg DAILY DARRIN Administration Prednisone 2 mg 05/06/17 09:00 05/22/17 09:56 Deltasone Tab* PO 2 mg DAILY DARRIN Administration Senna 2 tab 05/05/17 11:52 05/06/17 20:44 Senokot Tab* PO 2 tab BEDTIME PRN Administration CONSTIPATION Tramadol HCl 50 mg 05/18/17 15:50 Ultram* PO Q6H PRN PAIN - MODERATE Vital Signs: Vital Signs Temp Pulse Resp BP Pulse Ox 98.4 F 77 20 123/69 100 05/22/17 06:10 05/22/17 06:10 05/22/17 06:10 05/22/17 06:10 05/22/17 06:10 Exam: GEN: no acute distress. Alert and appropriate. LUNGS: clear bilaterally HEART: regular rate and rhythm ABDOMEN: Soft, +BS, non-tender, non-distended EXTREMITIES: No edema. Suture line well-healed Assessment/Plan: 71yo woman with RA s/p left periprosthetic femur fracture. 1. Periprosthetic Left femur fracture: NWB LLE. f/u with orthopedics, Dr. Kashmir Blackman scheduled for 05/26/17 at 3pm. 2. Rheumatoid Arthritis: Imuran. Prednisone. Hold Orencia, per Dr. Iverson. Port flushed 05/08/17. 3. Osteoporosis: Calcitriol/Vit D 4. Overactive Bladder: Ditropan 5. Coronary Artey Disease/tachycardia episodes: Toprol/ASA. f/u with Dr. Lofton. 6. Advanced directives: Has HCP. Full code 7. Acute post operative Anemia: stable. H/H 9.3/30. 8. Discharge home today with family assistance. 05/22/17 10:38
--- NOTE | 2017-05-23 10:30 | DS ---
CC: Dr. Jo Kerns; Dr. Iverson; Dr. Lofton; Dr. Kashmir Blackman REHABILITATION DISCHARGE SUMMARY: DATE OF ADMISSION: 05/05/17 DATE OF DISCHARGE: 05/22/17 PRIMARY CARE PROVIDER: Dr. Jo Kerns. FOLEY ARTIST: Dr. Iverson. FINGERPRINT EXPERT: Dr. Lofton. ORTHOPEDIC SURGEON: Dr. Kashmir Blackman, [facility]. REASON FOR ADMISSION: Left femur fracture, status post ORIF. HISTORY OF PRESENT ILLNESS: For full details of her acute hospitalization leading up to her admission, please see the note dictated by Dr. Young on . HOSPITAL COURSE: During her time on the [facility], her Orencia continued to be held for her rheumatoid arthritis. She continued on Imuran and low-dose prednisone. She needs to follow up with her computing consultant to determine when to restart Orencia. Her port was flushed on 05/08/17. She has continued to be nonweightbearing to the left lower extremity. She had a brace for much of her stay, but in phone followup with her orthopedic surgeon, it was felt that she no longer needed the brace. The presence of the brace made some self-care management more difficult. She has been able to maintain her nonweightbearing precautions and is using a double platform walker. During her time on the [facility] , she participated in physical therapy and at the time of discharge is independent with bed mobility. She is independent transferring with a bilateral platform walker. She can ambulate short distances with a bilateral platform walker less than 10 feet. She needs to use a wheelchair for in and out of home mobility and purchased a small electric chair as well to use. She needs to have a ramp at her home. She is to continue with nonweightbearing status of the left leg until given further instructions by Dr. Blackman. She also participated well with occupational therapy during her stay. At the time of discharge, she is independent eating. For bathing and tub transfers, she requires supervision while seated and steadying for transfers. For dressing, she needs setup for her shoe and setup to partial minimum assist for upper body dressing at times. For toileting, she requires supervision to a steadying assist for toileting transfers and minimum assist to wipe herself after toileting. For home management and cooking, she can do light meal prep with setup seated in a wheelchair. Her family will be available to assist her around the clock as needed for the above tasks. When she was at [facility], her metoprolol was increased to 50 mg per day for some perioperative tachycardia. She felt that this made her lightheaded and dizzy. She recently had an event monitor with cardiology as an outpatient. Phone contact was made with her lawn mower mechanic and the results were normal. Since she had been stable previously on 25 mg of metoprolol and it was felt that her tachycardia episodes were perioperative, she went back down to her regular dose of 25 mg per day and has tolerated that well. She has had acute postoperative anemia, but her hemoglobin and hematocrit have been stable. The last measure was 9.3 and 30. She was treated with Lovenox for DVT prophylaxis, but will not need them any further heading home. She has not needed to use anything specifically for pain. Her sutures were removed by Dr. Young during her stay on the [facility] since she was unable to make the initial follow-up appointment in [place]. Her incision has healed well. DISCHARGE CONDITION: Good. DISCHARGE DISPOSITION: Home with family support. DISCHARGE MEDICATIONS: 1. Aspirin 81 mg q. day. 2. Imuran 50 mg every Thursday, Thursday, and Thursday. 3. Calcitriol 0.25 mcg q. day. 4. Vitamin D 1000 units q. day. 5. Metoprolol XL 25 mg q. day. 6. Omeprazole 20 mg q. day or she may decide to go back to pantoprazole 40 mg q. day which she was taking previously. 7. Oxybutynin XL 10 mg q. day. 8. Prednisone 2 mg q. day. 9. Tramadol 50 mg q.6 hours p.r.n. not to exceed 3 per day. 10. Orencia 500 mg infusion every 30 days, to be restarted on the orders of Dr. Iverson when appropriate. FOLLOWUP: 1. She is to follow up with Dr. Kashmir Blackman. She currently has an appointment on 05/26/17 at 3 p.m. She voices that she may change this appointment to the following week when she has transportation. 2. A referral has been sent to visiting nurse services for nursing and ongoing therapies and home care. 3. Follow up with primary care provider, Dr. Kerns, in the next month. 4. Follow up with Dr. Iverson in the next month. 5. Follow up with Dr. Lofton, Cardiology. DISCHARGE DIAGNOSES: 1. Left periprosthetic femur fracture, status post open reduction internal fixation. 2. Rheumatoid arthritis. 3. Coronary artery disease. 4. Tachycardia. 5. History of congestive heart failure. 6. Hypertension. 7. Osteoporosis secondary to prednisone. [id number]/[facility] #: [id number]
== END 2017-05-22 11:15 | disposition home health service (06) | DRG 561 ==
LOC: PMRU 11:26
PROVIDERS: ADMIT Physical Medicine & Rehabilitation; ATTEND Physical Medicine & Rehabilitation
PROC: F07Z5ZZ Bed Mobility Treatment (ICD-10-PCS; principal; 2017-05-05)
PROC: F07Z9ZZ Gait Training/Functional Ambulation Treatment (ICD-10-PCS; 2017-05-05)
PROC: F07Z8ZZ Transfer Training Treatment (ICD-10-PCS; 2017-05-05)
PROC: F07Z4ZZ Wheelchair Mobility Treatment (ICD-10-PCS; 2017-05-05)
PROC: F08Z0ZZ Bathing/Showering Techniques Treatment (ICD-10-PCS; 2017-05-05)
PROC: F08Z1ZZ Dressing Techniques Treatment (ICD-10-PCS; 2017-05-05)
PROC: F08Z3ZZ Feeding/Eating Treatment (ICD-10-PCS; 2017-05-05)
DX: S72.341D Displaced spiral fracture of shaft of right femur, subsequent encounter for closed fracture with routine healing (principal); M06.9 Rheumatoid arthritis, unspecified; I11.0 Hypertensive heart disease with heart failure; I50.9 Heart failure, unspecified; E83.42 Hypomagnesemia; W18.30XD Fall on same level, unspecified, subsequent encounter; I25.10 Atherosclerotic heart disease of native coronary artery without angina pectoris; Z96.612 Presence of left artificial shoulder joint; Z96.611 Presence of right artificial shoulder joint; Z96.642 Presence of left artificial hip joint; Z96.653 Presence of artificial knee joint, bilateral; M81.8 Other osteoporosis without current pathological fracture; T38.0X5D Adverse effect of glucocorticoids and synthetic analogues, subsequent encounter; Z79.82 Long term (current) use of aspirin; Z79.52 Long term (current) use of systemic steroids; Z79.899 Other long term (current) drug therapy; Z88.1 Allergy status to other antibiotic agents; Z88.5 Allergy status to narcotic agent; Z88.0 Allergy status to penicillin; Z88.8 Allergy status to other drugs, medicaments and biological substances; N32.81 Overactive bladder; R10.11 Right upper quadrant pain; M97.02XD Periprosthetic fracture around internal prosthetic left hip joint, subsequent encounter
CPT/HCPCS: 36415; 80048; 80053; 83735; 85014; 85018; 85025; A9270-GY; J1642; J1650; J7500